=== PATIENT | female | born 1950 | race Caucasian/White ===

== ENCOUNTER → 2020-06-24 12:05 | Outpatient (CLI) | payer SELFPAY ==
[2020-06-24 15:43] LABS: Coronavirus 19 IgG Antibody Negative (Negative); Coronavirus 19 IgM Antibody Negative (Negative)
== END ==
DX: Z03.818 Encounter for observation for suspected exposure to other biological agents ruled out (principal)
CPT/HCPCS: 36415; 86328

== ENCOUNTER → 2022-06-28 15:18 | Outpatient (CLI) | payer MEDICARE, SELFPAY ==
--- NOTE | 2022-06-28 15:29 | CT_ITS ---
FINAL REPORT CLINICAL HISTORY: SCREENING FOR LUNG CANCER, 72-year-old PERSONAL HX OF NICOTINE DEPENDENC, 3 CIGARETTES PER DAY X 50 YEARS FINDINGS: Low-Dose Chest CT Axial images were obtained from the lung apex to the mid abdomen by computed tomography. Low-dose protocol was utilized. CTDI vol (mGy): 2.90 DLP (mGy-cm): 104.46 There is no axillary adenopathy. There is no hilar or mediastinal adenopathy. The heart is proper size. There is no pericardial or pleural effusion. Lung window images demonstrate no suspicious infiltrate or nodule. There is a large calcified granuloma in the lingula. There is scarring at the lung apices. Limited images of the upper abdomen are unremarkable. IMPRESSION: Lung RADS category 1. Recommend 12 month follow-up low-dose chest CT. Reviewed, Interpreted and Dictated by Salazar Vallecillo MD Transcribed by Janelle Alexis Authenticated and [facility]
--- NOTE | 2022-06-28 15:33 | MM_ITS ---
PROCEDURE INFORMATION: Exam: Bilateral Screening 3D Mammography Exam date and time: 06/28/2022 3:50 PM Age: 72 years old Clinical indication: Screening examination. Her mother had breast cancer at age 50. TECHNIQUE: Imaging protocol: Bilateral Screening tomosynthesis and 2D mammography including computer-aided detection (CAD) when performed. COMPARISON: DMSB DIGITAL MAMM-SCREEN BILATERAL 05/01/2010 8:49 AM FINDINGS: MAMMOGRAPHY: Breast composition: The breasts are heterogeneously dense, which may obscure small masses. Mass: None. Architectural distortion: None. Calcifications: Possible grouping of calcifications in the left upper outer quadrant middle 3rd. Asymmetric density: None. Skin thickening: None. Axillary adenopathy: None. IMPRESSION: Patient to be recalled for left diagnostic magnification views in CC and true lateral for further evaluation of left breast calcifications. ASSESSMENT: BI-RADS Category 0: Incomplete- Need Additional Imaging Evaluation and/or Prior Mammograms for Comparison
== END ==
PROVIDERS: PCP Family Medicine; Visit Provider Family Medicine
DX: Z12.31 Encounter for screening mammogram for malignant neoplasm of breast (principal); Z87.891 Personal history of nicotine dependence; Z12.2 Encounter for screening for malignant neoplasm of respiratory organs
CPT/HCPCS: 71271; 77063; 77067

== ENCOUNTER → 2022-07-17 13:32 | Outpatient (CLI) | payer MEDICARE, SELFPAY ==
--- NOTE | 2022-07-17 14:34 | MM_ITS ---
PROCEDURE INFORMATION: Exam: MG Left Diagnostic Breast Tomosynthesis Exam date and time: 07/17/2022 2:26 PM Age: 72 years old Clinical indication: Patient recalled on the basis of a screening mammogram for further evaluation; left breast calcifications TECHNIQUE: Imaging protocol: Left Diagnostic tomosynthesis and 2D mammography including computer-aided detection (CAD) when performed. Unilateral or bilateral exam. COMPARISON: 1. MG MM DIG SCREENING MAMM BI W/CAD 06/28/2022 3:50 PM 2. MG SCREENING [place] MAMMOGRAM 12/14/2021 12:52 PM FINDINGS: MAMMOGRAPHY: Digital diagnostic magnification views of the left upper outer quadrant do not demonstrate any clustered calcifications. IMPRESSION: No mammographic evidence of malignancy. Annual bilateral mammographic screening is recommended unless otherwise clinically indicated. ASSESSMENT: BI-RADS Category 1: Negative
== END ==
PROVIDERS: PCP Family Medicine; Visit Provider Family Medicine
DX: R92.8 Other abnormal and inconclusive findings on diagnostic imaging of breast (principal)
CPT/HCPCS: 77061; 77065; G0279

== ENCOUNTER → 2023-04-29 11:06 | Outpatient (CLI) | payer MEDICARE, SELFPAY ==
[2023-04-29 12:19] LABS: Alanine Aminotransferase 18 U/L (12-78); Albumin Level 4.2 g/dl (3.5-5.0); Albumin/Globulin Ratio 1.4 (1.1-1.8); Alkaline Phosphatase 86 U/L (38-126); Anion Gap 10.2 mEq/L (5-15); Aspartate Amino Transferase 26 U/L (14-36); Bilirubin,Total 0.9 mg/dl (0.2-1.3); Blood Urea Nitrogen 19 mg/dl (7-17); Calcium 9.4 mg/dl (8.4-10.2); Carbon Dioxide 30 mmol/L (22.0-30.0); Chloride 107 mmol/L (98-107); Estimated Glomerular Filt Rate 82 ml/min (>60); GFR (African American) 99 ML/MIN (>60); Globulin 3.1 g/dL (1.3-3.2); Glucose 97 mg/dl (74-100); Potassium 4.2 mmoL/L (3.5-5.1); Sodium 143 mmol/L (136-145); Total Protein,Serum 7.3 g/dl (6.3-8.2)
== END ==
PROVIDERS: PCP Family Medicine; Visit Provider Family Medicine
DX: Z00.00 Encounter for general adult medical examination without abnormal findings (principal)
CPT/HCPCS: 36415; 80053

== ENCOUNTER → 2023-07-02 14:44 | Outpatient (CLI) | payer MEDICARE, SELFPAY ==
--- NOTE | 2023-07-02 14:50 | CT_ITS ---
FINAL REPORT TECHNIQUE: Axial images were obtained from the lung apex to the mid abdomen by computed tomography. This study was performed with techniques to keep radiation doses as low as reasonably achievable (ALARA). Individualized dose reduction techniques using automated exposure control or adjustment of mA and/or kV according to the patient's size were employed. CLINICAL HISTORY: PERSONAL HX OF NICOTINE smoker, .5 ppd x 55 years COMPARISON: 06/28/2022 FINDINGS: CHEST CT LOW DOSE CTDI vol (mGy): 2.90 DLP (mGy-cm): 106.81 There is no axillary adenopathy. There is no hilar or mediastinal adenopathy. The heart is normal in size. There is no pericardial or pleural effusion. Lung window images demonstrate no suspicious infiltrate or nodule. There is a large calcified granuloma in the lingula. Note is made of mild scarring. Limited images of the upper abdomen are unremarkable. IMPRESSION: Lung RADS category 1. Recommend 12 month follow-up low-dose chest CT. Reviewed, Interpreted and Dictated by Justin West III, MD Transcribed by Sherine Whitaker Authenticated and [facility]
== END ==
PROVIDERS: PCP Family Medicine; Visit Provider Family Medicine
DX: Z87.891 Personal history of nicotine dependence (principal); Z12.2 Encounter for screening for malignant neoplasm of respiratory organs
CPT/HCPCS: 71271

== ENCOUNTER → 2023-07-24 12:46 | Outpatient (CLI) | payer MEDICARE, SELFPAY | PROVIDERS: PCP Family Medicine; Visit Provider Family Medicine | DX: Z12.31 Encounter for screening mammogram for malignant neoplasm of breast (principal) ==

== ENCOUNTER → 2023-08-21 10:25 | Outpatient (CLI) | payer MEDICARE, SELFPAY ==
--- NOTE | 2023-08-21 10:41 | MM_ITS ---
PROCEDURE INFORMATION: Exam: MG Bilateral Screening 3D Mammography Exam date and time: 08/21/2023 10:30 AM Age: 73 years old Clinical indication: Screening examination TECHNIQUE: Imaging protocol: Bilateral Screening tomosynthesis and 2D mammography including computer-aided detection (CAD) when performed. COMPARISON: 1. MG MM DIG MAMM DX UNILAT LT CAD 07/17/2022 2:26 PM 2. MG MM DIG SCREENING MAMM BI W/CAD 06/28/2022 3:50 PM FINDINGS: MAMMOGRAPHY: Breast composition: The breasts are heterogeneously dense, which may obscure small masses. Mass: None. Architectural distortion: None. Calcifications: No suspicious calcifications. Asymmetric density: None. Skin thickening: None. Axillary adenopathy: None. IMPRESSION: No mammographic evidence of malignancy. Annual screening is recommended unless otherwise clinically indicated. ASSESSMENT: BI-RADS Category 1: Negative
== END ==
PROVIDERS: PCP Family Medicine; Visit Provider Family Medicine
DX: Z12.31 Encounter for screening mammogram for malignant neoplasm of breast (principal)
CPT/HCPCS: 77063; 77067

== ENCOUNTER 2024-02-25 11:06 | Emergency (ER) | payer MEDICARE, SELFPAY ==
[2024-02-25 11:15] VITALS: BP 120/73; PULSE 83; RESP 18; TEMP 36.6; O2SAT 97; BMI 17.7
--- NOTE | 2024-02-25 11:21 | XR_ITS ---
FINAL REPORT CLINICAL HISTORY: pain FINDINGS: Left hand Three views were obtained. There is no acute fracture or dislocation. There are moderate to severe degenerative changes, greatest involving the 2nd through 5th PIP joints. No soft tissue abnormality is identified. IMPRESSION: Degenerative changes as above. Reviewed, Interpreted and Dictated by Justin West III, MD Transcribed by Sherine Whitaker Authenticated and . [facility]
--- NOTE | 2024-02-25 11:21 | XR_ITS ---
FINAL REPORT CLINICAL HISTORY: pain FINDINGS: Left wrist Three views were obtained. There is no acute fracture or dislocation. There are moderate degenerative changes at the radial aspect of the wrist. No soft tissue abnormality is identified. IMPRESSION: Moderate degenerative changes. Reviewed, Interpreted and Dictated by Justin West III, MD Transcribed by Sherine Whitaker Authenticated and [facility]
--- NOTE | 2024-02-25 11:25 | EXP.UTC ---
Discharge Plan Disposition Patient Disposition: Home, Self-Care Condition: Good Referrals Follow up/Referrals: Rajeev Davis MD [Primary Care Provider] - See instructions Vinicio Carney DO [Staff Physician] - See instructions Activity Restrictions/Add. Instructions Additional Instructions/Restrictions: Rest the extremity, apply ice for 15 minutes as tolerated three or four times per day, Elevate the extremity as tolerated while you are resting. Take tylenol or ibuprofen (if you can take this) for pain. Follow up with Dr. Carney (orthopedics) if you continue to have symptoms. I put in a referral but you need to call his office and schedule an appointment. Follow up with your regular doctor. GO TO THE ER FOR ANY WORSENING SYMPTOMS Clinical Impressions Clinical Impression: Contusion of left wrist, Left wrist pain, Left wrist sprain Instructions Patient Instructions: DI for Wrist Sprain Discharge ED Provider: Shola Haynes [facility] General Stated complaint: injury to left wrist Time Seen by Provider: 02/25/24 11:25 History of Present Illness Provider Complaint: She states that her large cypriot sheperd dog accidentally ran into her left wrist with his head earlier today. She has had pain and swelling of the lateral area of that wrist since then. She denies any bites or scratches. Related Data Allergies Allergy/AdvReac Type Severity Reaction Status Date / Time PCN (PENICILLIN) Allergy Severe S-SWELLS-OR Uncoded 02/25/24 11:39 AL/THROAT [facility] Disclaimer: The information contained in this section may have been updated after the patient was seen, as this information can be updated by other users. Social History Smoking Status: Current every day smoker alcohol intake: never current occupational status: retired Travel in the last 8 weeks: None ROS Obtained: Yes All systems reviewed & no additional complaints except as documented Constitutional Constitutional: Denies chills and Denies fever(s) Eyes Eyes: Denies eye discharge ENT Ears, Nose, Mouth, and Throat: Denies dizziness, Denies otalgia and Denies sore throat Cardiovascular Cardiovascular: Denies chest pain Respiratory Respiratory: Denies shortness of breath, Denies chest congestion, Denies cough, Denies stridor and Denies wheezing Gastrointestinal Gastrointestingal: Denies nausea or vomiting Musculoskeletal Musculoskeletal: Reports system reviewed and no additional complaints, except as documented and Denies arthralgias Integumentary/Breasts Skin/Breast: Reports as per HPI and Reports redness Neurologic Neurologic: Denies dizziness and Denies paresthesias Allergic/Immunologic Allergic/Immunologic: Denies wheezing Physical Exam General General appearance: alert and in no apparent distress Head Head exam: atraumatic, normocephalic and normal inspection Eye Eye exam: Present normal appearance, PERRL and EOMI ENT ENT exam: Present normal exam, normal oropharynx, mucous membranes moist, TM's normal bilaterally and normal external ear exam Neck Neck exam: Present normal inspection, full ROM and trachea midline; Absent meningismus or lymphadenopathy Chest Chest inspection: Present normal inspection and symmetric chest wall rise; Absent tenderness Respiratory Respiratory exam: Present normal lung sounds bilaterally; Absent respiratory distress Cardiovascular Cardiovascular exam: Present regular rate and normal rhythm; Absent JVD Abdominal Exam Abdominal exam: Present soft and normal bowel sounds; Absent distention, tenderness or guarding Extremities Exam Extremities exam: Present normal capillary refill; Absent calf tenderness Expanded Upper Extremity Exam Right: Elbow exam: Present normal inspection and full ROM; Absent tenderness, pain w/ pronation/supination or tenderness over radial head Forearm/Wrist exam: Present full ROM, tenderness, swelling and ecchymosis; Absent abrasion, laceration, deformity, crepitus, dislocation, erythema, tenderness over anatomical snuff box or pain with axial thumb loading Hand exam: Present normal inspection and full ROM; Absent tenderness, swelling, abrasion, laceration, skin avulsion, ecchymosis, deformity, crepitus, dislocation, erythema, amputation, nail avulsion or subungual hematoma Neuromotor exam: Normal wrist extension, thumb opposition, thumb IP flexion, thumb adduction and fingers 2-5 abduction Neurosensory exam: Normal radial nerve, ulnar nerve and median nerve Vascular exam: Normal capillary refill, radial pulse, ulnar pulse and brachial pulse Back Exam Back exam: Present normal inspection; Absent tenderness Neurological Exam Neurological exam: Present alert and oriented X3 Psychiatric Psychiatric exam: Present normal affect and normal mood Skin Skin exam: Present warm, dry, intact and normal color Lymphatic Lymphatic Findings: no adenopathy Medical Decision Making Medical Records Medical records reviewed: No I reviewed the patient's medical records. Misbah Inquiry Pt receiving controlled substance: No Orders (Tests/Meds): ORDERS Category Date Time Status Wrist XR left minimum 3 views [XR wrist LT min 3V] Stat Exams 02/25/24 11:21 Ordered XR hand LT min 3V Stat Exams 02/25/24 11:21 Ordered Radiology Data #1: Image(s): Wrist Image Reviewed: Yes I reviewed the patient's radiology image and Yes I have reviewed radiologist's interpretation Preliminary Findings: Normal/NAD and No Fracture Seen Accession No. : [id number] Patient Name / ID : Leidy Roberson / [id number] Exam Date : 02/25/2024 11:22:00 ( Final ) Study Comment : Sex / Age : F / Y Creator : AGUILA WEST MD Dictator : [employer] Supervisor : [employer] Licensee : AGUILA WEST MD Approver2 : Report Date : 02/25/2024 13:42:51 My Comment : FINAL REPORT CLINICAL HISTORY: pain FINDINGS: Left wrist Three views were obtained. There is no acute fracture or dislocation. There are moderate degenerative changes at the radial aspect of the wrist. No soft tissue abnormality is identified. IMPRESSION: Moderate degenerative changes. Reviewed, Interpreted and Dictated by Aguila West III, MD Transcribed by Sherine Whitaker Authenticated and [facility]: Image(s): Hand Image Reviewed: Yes I reviewed the patient's radiology image and Yes I have reviewed radiologist's interpretation Preliminary Findings: Normal/NAD and No Fracture Seen Accession No. : [id number] Patient Name / ID : Leidy Roberson / [id number] Exam Date : 02/25/2024 11:20:42 ( Final ) Study Comment : Sex / Age : F / Y Creator : AGUILA WEST MD Dictator : [employer] Supervisor : [employer] Estate [employer] Licensee : AGUILA WEST MD Approver2 : Report Date : 02/25/2024 13:42:55 My Comment : FINAL REPORT CLINICAL HISTORY: pain FINDINGS: Left hand Three views were obtained. There is no acute fracture or dislocation. There are moderate to severe degenerative changes, greatest involving the 2nd through 5th PIP joints. No soft tissue abnormality is identified. IMPRESSION: Degenerative changes as above. Reviewed, Interpreted and Dictated by Aguila West III, MD Transcribed by Sherine Whitaker Authenticated and [facility] Procedures Risk/Benefits of Procedure(s) Were Explained: Yes Orthopedic Splinting/Casting Injury #1: Side: left Upper Extremity Injury Location: forearm, wrist and hand Upper Extremity Immobilizer: volar splint and applied by nurse/dr abreu Post Cast/Splinting Neuro Status: intact and no change Post Cast/Splinting Vasc Status: intact and no change
[2024-02-25 12:32] VITALS: BP 120/73; PULSE 83; RESP 18; TEMP 36.6; O2SAT 97
== END 2024-02-25 12:32 | disposition home or self-care (01) ==
PROVIDERS: Emergency Provider Nurse Practitioner Family; PCP Family Medicine
DX: S63.502A Unspecified sprain of left wrist, initial encounter (principal); M25.532 Pain in left wrist; S60.212A Contusion of left wrist, initial encounter; F17.210 Nicotine dependence, cigarettes, uncomplicated; W54.1XXA Struck by dog, initial encounter
CPT/HCPCS: 73110; 73130; 99204; 99212; G0463

== ENCOUNTER 2024-09-17 10:24 | Outpatient (CLI) | payer MEDICARE, SELFPAY ==
--- NOTE | 2024-09-17 10:30 | MM_ITS ---
PROCEDURE INFORMATION: Exam: MG Bilateral Screening 3D Mammography Exam date and time: 09/17/2024 10:25 AM Age: 74 years old Clinical indication: Screening examination TECHNIQUE: Imaging protocol: Bilateral Screening tomosynthesis and 2D mammography including computer-aided detection (CAD) when performed. COMPARISON: 1. MG MM DIG SCREENING MAMM BI W/CAD 08/21/2023 10:30 AM 2. MG MM DIG MAMM DX UNILAT LT CAD 07/17/2022 2:26 PM FINDINGS: MAMMOGRAPHY: Breast composition: The breasts are heterogeneously dense, which may obscure small masses. Mass: None. Architectural distortion: None. Calcifications: No suspicious calcifications. Asymmetric density: None. Skin thickening: None. Axillary adenopathy: None. IMPRESSION: No mammographic evidence of malignancy. Annual screening is recommended unless otherwise clinically indicated. ASSESSMENT: BI-RADS Category 1: Negative.
== END 2024-09-17 23:59 | disposition home or self-care (01) ==
LOC: RAD 10:25
PROVIDERS: PCP Family Medicine; Visit Provider Family Medicine
DX: Z12.31 Encounter for screening mammogram for malignant neoplasm of breast (principal)
CPT/HCPCS: 77063; 77067

== ENCOUNTER 2024-11-03 04:10 | Emergency (ER) | payer MEDICARE, SELFPAY ==
[2024-11-03 04:16] VITALS: BP 134/79; PULSE 90; O2SAT 97
[2024-11-03 04:23] VITALS: BP 134/79; PULSE 89; RESP 18; TEMP 36.7; O2SAT 97; BMI 18.5
[2024-11-03 04:31] VITALS: BP 114/72; PULSE 74; O2SAT 98
[2024-11-03 04:37] VITALS: BP 114/72; PULSE 70; PULSE 73; RESP 16; TEMP 36.7; O2SAT 97; O2SAT 99
[2024-11-03 04:39] LABS: Albumin Level 4.6 g/dl (3.5-5.0); Chloride 106 mmol/L (98-107); Sodium 139 mmol/L (136-145)
[2024-11-03 04:40] LABS: Potassium 3.7 mmoL/L (3.5-5.1)
[2024-11-03 04:42] LABS: Alanine Aminotransferase 25 U/L (12-78); Albumin/Globulin Ratio 1.6 (1.1-1.8); Alkaline Phosphatase 95 U/L (38-126); Anion Gap 11.7 mEq/L (5-15); Aspartate Amino Transferase 36 U/L (14-36); Bilirubin,Total 1.6 mg/dl (0.2-1.3); Blood Urea Nitrogen 20 mg/dl (7-17); Carbon Dioxide 25 mmol/L (22.0-30.0); Creatinine Clearance Estimated 37 mL/min (50-200); Estimated Glomerular Filt Rate 70 ml/min (>60); GFR (African American) 84 ML/MIN (>60); Globulin 2.9 g/dL (1.3-3.2); Total Protein,Serum 7.5 g/dl (6.3-8.2)
[2024-11-03 04:43] LABS: Calcium 9.2 mg/dl (8.4-10.2); Glucose 114 mg/dl (74-100); Magnesium 1.8 mg/dl (1.6-2.3)
[2024-11-03 04:49] LABS: Basophils # 0.1 K/mm3 (0-0.2); Basophils % 0.7 % (0.1-2.0); Eosinophils # 0.2 K/mm3 (0.0-0.4); Eosinophils % 1.4 % (0.1-12.0); Hematocrit 40.6 % (37.0-47.0); Hemoglobin 13.3 g/dL (12.2-16.2); Lymphocytes # 3.2 K/mm3 (0.7-4.5); Mean Corpuscular HGB Conc 32.8 g/dL (31.8-35.4); Mean Corpuscular Hemoglobin 30.2 pg (27.0-31.2); Mean Corpuscular Volume 92.3 fl (81-99); Mean Platelet Volume 10.6 fl (7.4-10.4); Monocytes # 0.7 K/mm3 (0.1-1.0); Monocytes % 6.2 % (1.7-9.3); Neutrophils # 7.7 K/mm3 (1.8-7.8); Neutrophils % 64.4 % (37.0-80.0); Platelet Count 282 K/mm3 (142-424); Red Cell Distribution Width 13.8 % (11.5-17.5)
[2024-11-03 05:00] VITALS: BP 116/72; PULSE 74; O2SAT 98
--- NOTE | 2024-11-03 05:16 | ED_ITS ---
Discharge Plan Disposition Patient Disposition: Home, Self-Care Prescriptions Prescriptions: No Action Maximum D3 325 mcg (13,000 unit) capsule 13,000 unit PO DIRECTED Patient Comments: TAKE 1 CAPSULE BY MOUTH ONCE DAILY ON SATURDAY, SATURDAY AND SATURDAY Referrals Follow up/Referrals: Rajeev Davis MD [Primary Care Provider] - See instructions Activity Restrictions/Add. Instructions Additional Instructions/Restrictions: Please follow-up with your primary care provider. Please return to the emergency department if you develop any new or worsening symptoms or become concerned for your health. Clinical Impressions Clinical Impression: Encounter for medical assessment, [facility] Print Language Print Language: Estonian Discharge ED Provider: Tai Fried General Adult HPI General Chief complaint: Recheck/Abnormal Lab/Rx Stated complaint: allergic reaction, trouble breathing Time Seen by Provider: 11/03/24 04:15 Mode of Arrival: Ambulatory Source of Information: Patient Limitations: No Limitations Description of Symptoms (Recalled from ER Triage Doc. by RN): aniya History of Present Illness HPI narrative: 74-year-old female with no reported past medical history presents after waking up feeling shaky. She denies any chest pain abdominal pain shortness of breath. She reports that she had been eating and drinking normally the day before. Reports that nothing of this has happened before. No seizure-like activity. She just feels a little off and shaky. Related Data Home Medications ?Medication ?Instructions ?Recorded ?Confirmed cholecalciferol (vitamin D3) 325 13,000 unit PO DIRECTED 11/03/24 11/03/24 mcg (13,000 unit) capsule (Maximum D3) Allergies Allergy/AdvReac Type Severity Reaction Status Date / Time Penicillins Allergy Swelling Verified 04/07/24 11:46 of Lip/Tongue/Throat [facility] Disclaimer: The information contained in this section may have been updated after the patient was seen, as this information can be updated by other users. Social History Smoking Status: Current every day smoker alcohol intake: never current occupational status: retired Travel in the last 8 weeks: None ROS Obtained: Yes All systems reviewed & no additional complaints except as documented Physical Exam General General appearance: alert and in no apparent distress Head Head exam: atraumatic and normocephalic Eye Eye exam: Present normal appearance, PERRL and EOMI ENT ENT exam: Present normal oropharynx and normal external ear exam Neck Neck exam: Present normal inspection and full ROM Chest Chest inspection: Present normal inspection and symmetric chest wall rise; Absent tenderness Respiratory Respiratory exam: Present normal lung sounds bilaterally; Absent respiratory distress Cardiovascular Cardiovascular exam: Present regular rate and normal rhythm Abdominal Exam Abdominal exam: Present soft; Absent distention, tenderness or guarding Extremities Exam Extremities exam: Present normal inspection; Absent edema or joint swelling Back Exam Back exam: Present normal inspection; Absent tenderness Neurological Exam Neurological exam: Present alert and oriented X3; Absent motor sensory deficit Psychiatric Psychiatric exam: Present normal affect and normal mood Skin Skin exam: Present warm, dry and normal color Lymphatic Lymphatic Findings: no adenopathy Medical Decision Making Medical Records Medical records reviewed: Yes I reviewed the patient's medical records. Screening: Per USPSTF and CDC recommendations, given the prevalence of disease in our region, it is our hospital?s policy to screen for HIV and viral Hepatitis for all patients aged 18 and over and those with ongoing risk factors. Misbah Inquiry Pt receiving controlled substance: No Misbah was queried for this patient: No Vital Signs: 11/03/24 04:16 11/03/24 04:23 11/03/24 04:31 Temperature 98.0 F Temperature Source Oral Pulse Rate 90 74 Pulse Rate [Right Radial] 89 Respiratory Rate 18 Blood Pressure 134/79 114/72 Blood Pressure [Right Arm] 134/79 Blood Pressure Mean [Right Arm] 97 Blood Pressure Source [Right Arm] Blood Pressure Position Blood Pressure Position [Right Arm] Sitting 02 Sat by Pulse Oximetry 97 97 98 Oxygen Delivery Method Room Air Room Air Room Air 11/03/24 04:37 11/03/24 04:37 11/03/24 05:00 Temperature 98.0 F 98.0 F Temperature Source Oral Oral Pulse Rate 73 74 Pulse Rate [Right Radial] 70 Respiratory Rate 16 16 Blood Pressure 114/72 116/72 Blood Pressure [Right Arm] 114/72 Blood Pressure Mean [Right Arm] 86 Blood Pressure Source [Right Arm] Automatic Cuff Blood Pressure Position Supine Blood Pressure Position [Right Arm] Sitting 02 Sat by Pulse Oximetry 99 97 98 Oxygen Delivery Method Room Air Room Air Room Air 11/03/24 05:19 Temperature 98.1 F Temperature Source Pulse Rate 72 Pulse Rate [Right Radial] Respiratory Rate 20 Blood Pressure 116/72 Blood Pressure [Right Arm] Blood Pressure Mean [Right Arm] Blood Pressure Source [Right Arm] Blood Pressure Position Blood Pressure Position [Right Arm] 02 Sat by Pulse Oximetry Oxygen Delivery Method Room Air Lab Data Lab results reviewed: Yes I reviewed the patient's lab results. Lab Results 11/03/24 04:28: WBC 12.0 H, RBC 4.40, Hgb 13.3, Hct 40.6, MCV 92.3, MCH 30.2, MCHC 32.8, RDW 13.8, Plt Count 282, MPV 10.6 H, Neut % (Auto) 64.4, Lymph % (Auto) 27.0, [place] % (Auto) 6.2, Eos % (Auto) 1.4, Baso % (Auto) 0.7, Neut # (Auto) 7.7, Lymph # (Auto) 3.2, [place] # (Auto) 0.7, Eos # (Auto) 0.2, Baso # (Auto) 0.1, Sodium 139, Potassium 3.7, Chloride 106, Carbon Dioxide 25, Anion Gap 11.7, BUN 20 H, Creatinine 0.80, Estimated Creat Clear 37, Estimated GFR 70, Est GFR ( Amer) 84, Glucose 114 H, Calcium 9.2, Magnesium 1.8, Total Bilirubin 1.6 H, AST 36, ALT 25, Alkaline Phosphatase 95, Total Protein 7.5, Albumin 4.6, Globulin 2.9, Albumin/Globulin Ratio 1.6, HCV Ab STEPHEN w/Rflx PCR Qn Negative, HIV Ag/Ab Combo Qual Negative 11/03/24 04:28 11/03/24 04:28 Orders (Tests/Meds): ORDERS Category Date Time Status CBC w/Auto Diff [Complete Blood Count Auto Diff] Stat Lab 11/03/24 04:28 Completed CMP [Comprehensive Metabolic Panel] Stat Lab 11/03/24 04:28 Completed HIV Combo Routine Lab 11/03/24 04:28 Completed Hepatitis C Ab Qual. W/ RFX Routine Lab 11/03/24 04:28 Completed MAG [Magnesium] Stat Lab 11/03/24 04:28 Completed Medical Decision Narrative: 74-year-old female with no reported past medical history presents shortly after waking up feeling shaky. History was obtained via interactive discussion with patient, family. On arrival, patient is [afebrile, hemodynamically stable, satting appropriately, alert, oriented x4, GCS 15], moving all extremities spontaneously. Full physical exam performed and significant for no significant physical exam abnormalities. Time the patient arrived she was no longer shaky. Differential includes but is not limited to hypoglycemia, electrolyte derangement, anxiety. Workup initiated including fingerstick blood glucose which was normal. Basic labs obtained which on my independent interpretation show minimal leukocytosis and no significant renal dysfunction. The underlying etiology of patient's brief period of shakiness is unclear, but no evidence of emergent pathology at this time. Patient was discharged in stable condition with return precautions. Procedures Risk/Benefits of Procedure(s) Were Explained: Yes Critical Care Critical Care Time Critical Care Time: No
[2024-11-03 05:19] VITALS: BP 116/72; PULSE 72; RESP 20; TEMP 36.7; O2SAT 98
[2024-11-03 07:12] LABS: HIV Combo NEGATIVE (Negative)
[2024-11-03 07:20] LABS: Hepatitis C Ab Qual. W/ RFX NEGATIVE (Negative)
== END 2024-11-03 05:25 | disposition home or self-care (01) ==
PROVIDERS: Emergency Provider Emergency Medicine; PCP Family Medicine
DX: Z00.8 Encounter for other general examination (principal); R25.1 Tremor, unspecified; Z72.0 Tobacco use
CPT/HCPCS: 80053; 83735; 85025; 86803; 87389; 99283

== ENCOUNTER 2025-02-15 12:37 | Outpatient (CLI) | payer MEDICARE, SELFPAY ==
[2025-02-15 12:44] LABS: Anti-Centromere B Antibodies ND; Anti-DNA (DS) Ab Qn ND; Anti-Jo-1 ND; Antichromatin Antibodies ND; Antiscleroderma-70 Antibodies ND; RNP Antibodies ND; Sjogren's Anti-SS-A ND; Sjogren's Anti-SS-B ND
--- NOTE | 2025-02-15 12:54 | XR_ITS ---
FINAL REPORT CLINICAL HISTORY: smoker, weightloss COMPARISON: None FINDINGS: PA and lateral views of the chest are obtained. There is no prior exam for comparison. The cardiac and mediastinal silhouettes are within normal limits. Changes of emphysema are present. There is evidence of prior granulomatous disease. No acute pulmonary abnormality is identified. There is no pleural effusion, pneumothorax, or acute osseous abnormality. IMPRESSION: Changes of emphysema and prior granulomatous disease without acute pulmonary abnormality. Reviewed, Interpreted and Dictated by Sylvia Godfrey MD Transcribed by Ana Zamora Authenticated and [facility]
[2025-02-15 14:28] LABS: Erythrocyte Sedimentation Rate 12 mm/hr (0-30)
[2025-02-15 14:57] LABS: Vitamin B12 466 pg/mL (239-931)
[2025-02-16 16:12] LABS: Antinuclear Antibodies (ANA) Negative (Negative)
== END 2025-02-15 23:59 | disposition home or self-care (01) ==
PROVIDERS: PCP Family Medicine; Visit Provider Specialist
DX: E44.1 Mild protein-calorie malnutrition (principal); F17.200 Nicotine dependence, unspecified, uncomplicated; G93.40 Encephalopathy, unspecified; R63.4 Abnormal weight loss; Z68.1 Body mass index [BMI] 19.9 or less, adult; J43.9 Emphysema, unspecified; D71 Functional disorders of polymorphonuclear neutrophils
CPT/HCPCS: 36415; 71046; 82607; 85651

== ENCOUNTER 2025-02-18 16:46 | Emergency (ER) | payer MEDICARE, SELFPAY ==
[2025-02-18 16:48] VITALS: BP 157/76; PULSE 82; RESP 18; TEMP 36.6; O2SAT 94; BMI 18.5
--- NOTE | 2025-02-18 16:56 | HMH.EDGENADL ---
Discharge Plan Disposition Patient Disposition: Home, Self-Care Referrals Follow up/Referrals: Rajeev Davis MD [Primary Care Provider, Medical] - See instructions Activity Restrictions/Add. Instructions Additional Instructions/Restrictions: Of the workup that is done thus farTonight we were about residential through your workup when you are requesting to go home. As discussed there is no way for us to know exactly what is going on without a complete workup however I am glad that your pain is gone and you are wanting to go home and if things get worse and you change her mind please come back at any time. There is blood in your urine as discussed that will need to be followed up on. Clinical Impressions Clinical Impression: Acute flank pain, Hip pain, right, Hematuria Instructions Patient Instructions: DI for Acute Abdominal Pain Print Language Print Language: Ukrainian Discharge ED Provider: Ned Pandya General Adult HPI <KATTY Bose - Last Filed: 02/18/25 19:02> General Chief complaint: Abdominal Pain Stated complaint: Vomiting,stomach pain Time Seen by Provider: 02/18/25 16:57 Mode of Arrival: Wheelchair Source of Information: Patient Description of Symptoms (Recalled from ER Triage Doc. by RN): PT presents for evaluation of right side lower abd pain along with N/V that started today suddenly. Denies knowledge of appendix removed. Rates pain 05/26. Pt brought in by wheelchair with . History of Present Illness HPI narrative: Patient presents for evaluation of right lower quadrant abdominal pain. Patient had acute onset of right lower quadrant abdominal pain along with nausea vomiting that began suddenly earlier today. She still has her appendix and her reproductive organs according to her . Last bowel movement was this morning and it was reportedly normal. She denies any fever chills hemoptysis hematochezia melena hematemesis hematuria dysuria. Related Data Allergies Allergy/AdvReac Type Severity Reaction Status Date / Time Penicillins Allergy Swelling Verified 02/15/25 10:06 of Lip/Tongue/Throat PFSH <KATTY Bose - Last Filed: 02/18/25 19:02> [facility] Disclaimer: The information contained in this section may have been updated after the patient was seen, as this information can be updated by other users. Family History (Updated 02/15/25 @ 10:06 by MARCIAL Juan) Other Cancer Social History Smoking Status: Current every day smoker alcohol intake: never current occupational status: retired Travel in the last 8 weeks?: None Have you lived/traveled outside [place] in past 30 days?: No Contact w/someone who lives/traveled outside US past 30 days?: No Exposure to someone with infectious disease in past 14 days?: No Do you have a fever (greater than 100.4 F or 38 C)?: No Have you tested positive for COVID-19?: No Exposed to someone with COVID-19 in past 14 days?: No Do you have a sore throat?: No Do you have a cough?: No Do you have any weakness?: No Do you have any diarrhea?: No Are you experiencing any unusual bleeding?: No Do you have any muscle aches/pain?: No Do you have any abdominal pain?: Yes Are you experiencing loss of taste or smell?: No Other Medical History Have you received the Pneumonia Vaccine: Yes <KATTY Bose - Last Filed: 02/18/25 19:02> ROS Obtained: Yes Systems reviewed as appropriate & no additional complaints except as documented Physical Exam <KATTY Bose - Last Filed: 02/18/25 19:02> General General appearance: alert and in no apparent distress Respiratory Respiratory exam: Present normal lung sounds bilaterally Cardiovascular Cardiovascular exam: Present regular rate Neurological Exam Neurological exam: Present alert and oriented X3 Medical Decision Making <KATTY Bose - Last Filed: 02/18/25 19:02> Medical Records Medical records reviewed: Yes I reviewed the patient's medical records. Screening: Per USPSTF and CDC recommendations, given the prevalence of disease in our region, it is our hospital?s policy to screen for HIV and viral Hepatitis for all patients aged 18 and over and those with ongoing risk factors. Misbah Inquiry Pt receiving controlled substance: No Vital Signs: 02/18/25 16:48 Temperature 97.8 F Temperature Source Oral Pulse Rate [Right] 82 Respiratory Rate 18 Blood Pressure [Right Arm] 157/76 H Blood Pressure Mean [Right Arm] 103 02 Sat by Pulse Oximetry 94 L Oxygen Delivery Method Room Air Lab Data Lab results reviewed: Yes I reviewed the patient's lab results. Lab Results 02/18/25 17:45: Urine Color Yellow, Urine Appearance Clear, Urine pH 6.0, Ur Specific [place] 1.022, Urine Protein Negative, Urine Glucose (UA) Negative, Urine Ketones Negative, Urine Blood Trace-i, Urine Nitrate Negative, Urine Bilirubin Negative, Urine Urobilinogen 0.2, Ur Leukocyte Esterase Negative, Urine RBC 20-50, Urine WBC 3-5, Ur Squamous Epith Cells 3-5, Urine Bacteria 2+, Urine Mucus 4+ 02/18/25 18:14: Sodium 136, Potassium 4.0, Chloride 111 H, Carbon Dioxide 22, Anion Gap 7.0, BUN 22 H, Creatinine 0.90, Estimated Creat Clear 37, Estimated GFR 61, Est GFR ( Amer) 74, Glucose 117 H, Calcium 8.8, Magnesium 1.8, Total Bilirubin 1.2, AST 26, ALT 17, Alkaline Phosphatase 78, C-Reactive Protein < 0.3, Total Protein 6.2 L, Albumin 3.8, Globulin 2.4, Albumin/Globulin Ratio 1.6, Procalcitonin 0.063 02/18/25 18:39: WBC 11.6 H, RBC 3.93 L, Hgb 12.2, Hct 37.6, MCV 95.7, MCH 31.0, MCHC 32.4, RDW 13.2, Plt Count 228, MPV 10.6 H, Neut % (Auto) 87.1 H, Lymph % (Auto) 7.9 L, [place] % (Auto) 4.1, Eos % (Auto) 0.1, Baso % (Auto) 0.5, Neut # (Auto) 10.1 H, Lymph # (Auto) 0.9, [place] # (Auto) 0.5, Eos # (Auto) 0.0, Baso # (Auto) 0.1 02/18/25 18:39 02/18/25 18:14 Orders (Tests/Meds): ED MEDICATIONS Discontinued Medications Generic Name Dose Route Start Last Admin Trade Name Freq PRN Reason Stop Dose Admin Acetaminophen 1,000 mg 02/18/25 17:08 02/18/25 17:46 Acetaminophen 1,000mg/100ml Vial IV 02/18/25 17:09 1,000 mg ONCE ONE Administration Sodium Chloride 1,000 mls @ 999 mls/hr 02/18/25 17:08 02/18/25 17:47 Sod Chlor 0.9% 1000ml Bag IV 02/18/25 18:08 999 mls/hr .Q1H1M ONE Administration Ketorolac Tromethamine 15 mg 02/18/25 17:08 02/18/25 17:46 Ketorolac 30mg/Ml Vial IV 02/18/25 17:09 15 mg ONCE ONE Administration Ondansetron HCl 4 mg 02/18/25 17:08 02/18/25 17:46 Ondansetron 4mg/2ml Vial IV 02/18/25 17:09 4 mg ONCE ONE Administration ORDERS Category Date Time Status CBC w/Auto Diff [Complete Blood Count Auto Diff] Stat Lab 02/18/25 18:39 Completed CMP [Comprehensive Metabolic Panel] Stat Lab 02/18/25 18:14 Completed CRP [C-Reactive Protein] Stat Lab 02/18/25 18:14 Completed ESR [Erythrocyte Sedimentation Rate] Stat Lab 02/18/25 17:09 Ordered Magnesium Stat Lab 02/18/25 18:14 Completed Procalcitonin Stat Lab 02/18/25 18:14 Completed Urinalysis and Microscopic Stat Lab 02/18/25 17:45 Completed Urine Culture Stat Micro 02/18/25 17:45 Received Medical Decision Narrative: In summary patient is a 74-year-old female who presents to the emergency department for evaluation of right lower quadrant abdominal pain and nausea vomiting. Patient is hemodynamically stable with a blood pressure 157/76 pulse 82 with normal sinus rhythm the bedside monitor breathing 18 times minute satting at 94% room air upon arrival, afebrile at 97.8. Discal exam is remarkable for tenderness to palpation of the right lower quadrant focally and mildly diffusely. There is no rebound or guarding no rigidity. Bowel sounds normal active.. Differential diagnosis includes acute appendicitis versus colitis versus constipation versus urinary tract infection versus kidney stone etc. Initial workup will be conducted with hematologic labs urinalysis CT scan abdomen pelvis. Initial interventions include crystalloid bolus Tylenol Toradol Zofran. <Ned Pandya MD - Last Filed: 02/18/25 19:04> Vital Signs: 02/18/25 16:48 Temperature 97.8 F Temperature Source Oral Pulse Rate [Right] 82 Respiratory Rate 18 Blood Pressure [Right Arm] 157/76 H Blood Pressure Mean [Right Arm] 103 02 Sat by Pulse Oximetry 94 L Oxygen Delivery Method Room Air Lab Data Lab Results 02/18/25 17:45: Urine Color Yellow, Urine Appearance Clear, Urine pH 6.0, Ur Specific [place] 1.022, Urine Protein Negative, Urine Glucose (UA) Negative, Urine Ketones Negative, Urine Blood Trace-i, Urine Nitrate Negative, Urine Bilirubin Negative, Urine Urobilinogen 0.2, Ur Leukocyte Esterase Negative, Urine RBC 20-50, Urine WBC 3-5, Ur Squamous Epith Cells 3-5, Urine Bacteria 2+, Urine Mucus 4+ 02/18/25 18:14: Sodium 136, Potassium 4.0, Chloride 111 H, Carbon Dioxide 22, Anion Gap 7.0, BUN 22 H, Creatinine 0.90, Estimated Creat Clear 37, Estimated GFR 61, Est GFR ( Amer) 74, Glucose 117 H, Calcium 8.8, Magnesium 1.8, Total Bilirubin 1.2, AST 26, ALT 17, Alkaline Phosphatase 78, C-Reactive Protein < 0.3, Total Protein 6.2 L, Albumin 3.8, Globulin 2.4, Albumin/Globulin Ratio 1.6, Procalcitonin 0.063 02/18/25 18:39: WBC 11.6 H, RBC 3.93 L, Hgb 12.2, Hct 37.6, MCV 95.7, MCH 31.0, MCHC 32.4, RDW 13.2, Plt Count 228, MPV 10.6 H, Neut % (Auto) 87.1 H, Lymph % (Auto) 7.9 L, [place] % (Auto) 4.1, Eos % (Auto) 0.1, Baso % (Auto) 0.5, Neut # (Auto) 10.1 H, Lymph # (Auto) 0.9, [place] # (Auto) 0.5, Eos # (Auto) 0.0, Baso # (Auto) 0.1 Orders (Tests/Meds): ED MEDICATIONS Discontinued Medications Generic Name Dose Route Start Last Admin Trade Name Freq PRN Reason Stop Dose Admin Acetaminophen 1,000 mg 02/18/25 17:08 02/18/25 17:46 Acetaminophen 1,000mg/100ml Vial IV 02/18/25 17:09 1,000 mg ONCE ONE Administration Sodium Chloride 1,000 mls @ 999 mls/hr 02/18/25 17:08 02/18/25 17:47 Sod Chlor 0.9% 1000ml Bag IV 02/18/25 18:08 999 mls/hr .Q1H1M ONE Administration Ketorolac Tromethamine 15 mg 02/18/25 17:08 02/18/25 17:46 Ketorolac 30mg/Ml Vial IV 02/18/25 17:09 15 mg ONCE ONE Administration Ondansetron HCl 4 mg 02/18/25 17:08 02/18/25 17:46 Ondansetron 4mg/2ml Vial IV 02/18/25 17:09 4 mg ONCE ONE Administration ORDERS Category Date Time Status CBC w/Auto Diff [Complete Blood Count Auto Diff] Stat Lab 02/18/25 18:39 Completed CMP [Comprehensive Metabolic Panel] Stat Lab 02/18/25 18:14 Completed CRP [C-Reactive Protein] Stat Lab 02/18/25 18:14 Completed ESR [Erythrocyte Sedimentation Rate] Stat Lab 02/18/25 17:09 Ordered Magnesium Stat Lab 02/18/25 18:14 Completed Procalcitonin Stat Lab 02/18/25 18:14 Completed Urinalysis and Microscopic Stat Lab 02/18/25 17:45 Completed Urine Culture Stat Micro 02/18/25 17:45 Received Medical Decision Narrative: In summary patient is a 74-year-old female who presents to the emergency department for evaluation of right lower quadrant abdominal pain and nausea vomiting. Patient is hemodynamically stable with a blood pressure 157/76 pulse 82 with normal sinus rhythm the bedside monitor breathing 18 times minute satting at 94% room air upon arrival, afebrile at 97.8. Discal exam is remarkable for tenderness to palpation of the right lower quadrant focally and mildly diffusely. There is no rebound or guarding no rigidity. Bowel sounds normal active.. Differential diagnosis includes acute appendicitis versus colitis versus constipation versus urinary tract infection versus kidney stone etc. Initial workup will be conducted with hematologic labs urinalysis CT scan abdomen pelvis. Initial interventions include crystalloid bolus Tylenol Toradol Zofran. I was consulted by the MANUEL, and we discussed the complexity of the problems being addressed. I approved the treatment and management plan for this patient's care in the emergency department, thus performing a substantive portion of the medical decision making. After initial workup was pending patient had resolution of her pain in her right hip right flank area and was wishing to go home. I discussed with patient and spouse at length that there is no way for me to know exactly what is going on however she has been hemodynamically stable here and I am glad that she has resolution of pain but there is no way for me to know if something severe is happening or not. Patient has capacity per [place] U-ARE criteria and will sign out against medical vice although it is my recommendation they were given return precautions to come anytime. They are specifically instructed that their hematologic labs are okay at this point and they do have blood in her urine which will likely need to be followed up on. Patient has bacteriuria urine nitrate negative and is not have symptomatic dysuria antibiotics will be deferred at this time. Ned Pandya MD Critical Care <KATTY Bose - Last Filed: 02/18/25 19:02> Critical Care Time Critical Care Time: No
--- OUTSIDE RECORDS SUMMARY | 2025-02-18 17:01 | XMS_ITS | Continuity of Care Document ---
Author Organization [facility], [facility] Address [address] [facility] [address] [place] [address] Care Team Providers Care Courtroom Reporter Name Role Phone JACQUIE SHELTON Primary Care Provider [phone] Assessment No assessment recorded. Plan of Treatment Reminders Order Date Submit Date Provider Last Modified By Organization Details Last Modified Time Details Appointments CARDIO ULTRASOUN D 2024 11:15A M CARDIO_UL TRASOUND Not available Not available Not available RECHECK 2024 10:15A M MARY JO ROSS MD Not available Not available Not available Lab glycohemo globin, total, blood 2024 025 [facility], [address] [place] [address], [phone], 01/26/2025 15:46:52 lipid panel, serum 2024 025 [facility], [address] [place] [address], [phone], 01/26/2025 16:35:12 Referral None recorded. Procedures None recorded. Surgeries None recorded. Imaging US, doppler echocardi ogram, w/ color flow 2024 025 [email or web address] [facility], [address] [place] [address] , [place], [address], 02/03/2025 11:47:28 Medication Orders None recorded. Patient TargetsNo targets recorded. Patient Instructions Encounter Date Encounter Id Patient Instructions Last Modified By Organization Details Last Modified Time 01/26/2025 [id number] Heart Station Patient Instructions coldendick Not available 01/26/2025 11:11:11 Reason for Referral None Reported. Results Created Date Observation Date Name Description Value Unit Range Abnormal Flag Note LastModifiedBy Organization Detail LastModifiedTime 01/28/20 25 01/26/2025 anni carlson am No observ ation record ed. BARCODE Not Available 2024 08:22:09 Result Notes None recorded. 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 Active 2015 From [employer] Load;Pro vider: Sonam Saucedo; Status: Active Not Available [facility] 6 09:51:48 Pain of hip region 18661970 Completed 201510/06/2021 From Automate d Load;Pro vider: Sonam Saucedo; Status: Active LEN LEE MD [address] [place] [address], [address] , [facility] 2 09:55:04 Senile hyperker atosis 516447715 Completed 201401/03/2017 From Autom[employer] d Load;Pro vider: Rashmi Flor ;Status: Active NILDA MUNOZ MD [address] [place] [address], [address] , [facility] 7 12:31:06 Scarring alopecia 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 Active 2014 From Autom[employer] Load;Pro vider: Rashmi Flor ;Status: Active Not Available [facility] 6 09:51:48 Hemangio ma 508265792 Active 2014 From Automate d Load;Pro vider: Rashmi Flor ;Status: Active Not Available [facility] 6 09:51:48 Familial combined hyperlip idemia 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 Completed 201401/03/2017 From Automate d Load;Pro vider: Nilda Munoz;Sta tus: Active NILDA MUNOZ MD [address] [place] [address], [address] , [facility] 7 12:31:03 Lack of energy 047352743 Completed 201410/06/2021 From Automate d Load;Pro vider: Nilda Munoz;Sta tus: Active LEN LEE MD [address] [place] [address], [address] , [facility] 2 09:55:07 Hyperlip idemia 59874810 Active 2016 NILDA MUNOZ MD [address] [place] [address], [address] , [facility] 7 12:31:01 Fatigue 00648993 Active 2016 NILDA MUNOZ MD [address] [place] [address], [address] , [facility] 7 12:31:11 Epidermo id cyst of skin 943826638 Active 2015 From Automate d Load;Pro vider: Rashmi Flor ;Status: Active Not Available [facility] 7 06:14:48 Lentigo Active 2015 From Automate d Load;Pro vider: Rashmi Flor ;Status: Active Not Available [facility] 7 07:37:58 History of polyp of colon 964265312 Active 2021 LEN LEE MD [address] [place] [address], [phone] , [facility] 2 09:57:01 Notes:: Depression Screening* Date:07/02/2016 Problem Notes None recorded. Procedures Surgical History Date Name Laterality Status Provider Name and Address Organization Details Recorded Time 01/27/20 25 EKG completed RONIT TIDWELL PA-C [address] [place] [address], [address], [facility] 01/26/2025 16:32:51 11/25/19 24 Destruction BN Lesions completed RASHMI FLOR DO [address] [place], [address], [facility] 11/25/2023 12:31:16 10/06/[address] Lung Screening Counseling completed LEN LEE MD [address] [place], [address], [facility] 10/06/2021 10:46:20 10/05/19 21 Destruction Premalignant Lesion(s) completed [facility] 10/05/2020 10:04:52 10/05/19 21 Destruction BN Lesions completed [facility] 10/05/2020 10:03:54 04/18/20 20 laser assisted in situ keratomileusis of bilateral eyes completed Lexie Knott [facility] 01/26/2025 10:25:44 06/16/20 19 Biopsy Skin Lesion; Tangential completed [facility] 06/16/2019 12:00:08 07/05/20 17 Most Recent Mammogram completed [facility] 12/31/2017 10:45:44 08/14/20 16 Most Recent Bone Density completed [facility] 12/31/2017 10:45:35 07/18/20 16 Date of Last Colonoscopy completed [facility] 12/31/2017 10:45:07 Eye Surgery completed [facility] 01/03/2017 12:03:38 Tonsillectomy completed [facility] 12/25/2018 10:36:31 dental surgical procedure completed Anila Claire [facility] 05/18/2022 10:22:10 Imaging Results None recorded. Procedure Notes None recorded. Medical Equipment None Reported. Allergies Allergen ID Allergen Name Allergen Category Reaction Reaction Severity Criticality Documentation Date Start Date Code Code System Note Provider Name and Address Organization Details Recorded Time 047105 Product containin g penicilli n (product) medicatio n anaphylax is Not available Not available 08/10/20162010 72869 0234 SNOMED React ion: ANAPH YLAXI S; Comme nt: Creat ed By: Huy Xiong ;Hardeep norton Date: 2010 1:52: 19 PM; Not Available [facility] 6 08:19:47 875615 ergocalci ferol medicatio n confusion moderate Not available 01/26/20252024 4018 [facility] 10:21:15 Medications Name Sig Start Date Stop Date Status Note LastModified by Organization Details LastModified Time doxycycli ne hyclate 100 mg capsule take two capsules once - single dose 01/26 completed Not Available Not Available Not Available Multiple Vitamin capsule Daily active Duration : 30 days;Chaitanya quency: daily;Me dication Descript ion: multivit calero; Dosage:1 ; Route:or al; refills: 3; Quantity :100 capsule Not Available Not Available Not Available Zofran 4 mg tablet Take 1 tablet 3 times a day by oral route as needed. 01/03 completed Not Available Not Available Not Available aspirin 81 mg tablet Daily 05/18 completed Frequenc y: daily;Me dication Descript ion: aspirin; Dosage:1 ; Route:or al; refills: 0 Not Available Not Available Not Available Vitamin C Daily active Frequenc y: daily;Me dication Descript ion: ascorbic acid; Dosage:1 ; refills: 0; Quantity :otc Not Available Not Available Not Available Golytely 236 gram-22.7 4 gram-6.74 gram-5.86 gram oral solution DIRECTED 07/22 completed Not Available Not Available Not Available Voltaren 1 % topical gel 04/03 completed PA approved through 09/15/19 Not Available Not Available Not Available Vitals Date Recorded Body height Body mass index (BMI) Body weight Oxygen saturation Oxygen saturation in Arterial blood by Pulse oximetry Heart rate Systolic blood pressure Diastolic blood pressure Provider Name and Address Organization Details Last Updated DateTime 5 162.56 cm 18.6 kg/m2 17650.1 3 g 96 % 96 % 90 /min 106 mm[Hg] 58 mm[Hg] [facility] 5 10:28:50 Social History Question Answer Notes LastModified by Organizat ion Details LastModified Time Tobacco Smoking Status Current Some Day Smoker Estrellita Mcdaniel [facility] 01/03/2017 11:56:33 Do You Have An Advance Directive? Yes Information not available 12/31/2017 What Is Your Level Of Caffeine Consumption? None Information not available 01/03/2017 How Much Tobacco Do You Chew? None Information not available 01/03/2017 What Type Of Diet Are You Following? REGULAR Information not available 01/03/2017 Which Illicit Or Recreational Drugs Have You Used? None Information not available 01/03/2017 Education 2 Year College Total Of 3 Years Completed Information not available 01/03/2017 Hard Of Hearing Or Deaf In One Or Both Ears? No Information not available 01/03/2017 Legally Blind In One Or Both Eyes? No Information not available 01/03/2017 Live Alone Or With Others? With Others Information not available 01/03/2017 What Was The Date Of Your Most Recent Tobacco Screening? 01/26/2025 Information not available 01/26/2025 How Many Children Do You Have? 0 Information not available 01/03/2017 What Is Your Current Pack Years? 30ormorepac yareli Information not available 01/26/2025 Performs Monthly Self-breast Exam? Yes Information not available 01/03/2017 What Is Your Relationship Status? Information not available 01/26/2025 Seat Belts Used Routinely Yes Information not available 01/03/2017 Are You Sexually Active? Yes Information not available 12/31/2017 Smoke Alarm In Home Yes Information not available 01/03/2017 At What Age Did You Start Smoking Tobacco? 18 Information not available 01/03/2017 Are You Passively Exposed To Smoke? Yes Information not available 01/03/2017 How Much Tobacco Do You Smoke? 1 PPW [email or web address] Information not available 05/18/2022 General Stress Level Low Information not available 12/31/2017 Do You Use Sunscreen Routinely? Yes Information not available 01/03/2017 Has Tobacco Cessation Counseling Been Provided? Yes Information not available 01/03/2017 On What Date Was Tobacco Cessation Counseling Provided? 10/06/2021 [email or web address] Information not available 10/06/2021 How Many Years Have You Smoked Tobacco? 45 Information not available 01/26/2025 Sex: Unknown Functional Status Question Answer Note LastModified by Organizat ion Details LastModified Time Do you or have you ever used any other forms of tobacco or nicotine? No Information not available 01/26/2025 What is your level of alcohol consumption? Occasional maybe 3 beers a year Information not available 01/03/2017 Are you currently employed? No Information not available 01/03/2017 Are you able to care for yourself? Yes Information not available 01/03/2017 What is your occupation? retired Information not available 01/03/2017 What is your exercise level? Moderate Information not available 12/31/2017 Mental Status None recorded. Family History Relationship Description Onset Age of this Age Resolved Age Notes LastModified by Organization Details LastModified Time Father No current problems or disability Not available 07/05 09:08:54 Mother No current problems or disability Not available 07/05 09:08:54 Mother Family history of malignant neoplasm breast cancer Not available 07/05/2017 09:09:53 Medical History Condition Response Coronary Artery Disease N Gout N Atrial Fibrillation N Kidney Stones N Hyperthyroidism N Parkinson's Disease N Alzheimer's N Depression N COPD N Hypothyroidism N Anemia N MRSA exposure N Difficulty Swallowing N Anxiety Disorder N Meniere's disease N Diabetes N Obesity N Arthritis N Mental Disorder N Tuberculosis N AIDS/HIV N Congestive Heart Failure (CHF) N Cancer N Stroke N Diverticulitis N Asthma N Reflux/GERD N High Cholesterol N Liver Disease N Heart Disease N Pulmonary Embolism N Fibromyalgia N Chronic Ear Infections N Hypertension N Osteoporosis N Kidney Disease N Gynecological History Statement/Question Response Date of Last Colonoscopy 07/18/2016 Most Recent Mammogram 07/05/2017 Most Recent Bone Density 08/14/2016 Obstetrics History GPAL:G 0 P 0 0 0 0 Immunizations Vaccine Type Date Status Note Provider Nam e and Address Organization Details Recorded Time Influenza, high-dose, trivalent, PF 8 completed Not Available [facility] 10/03/2019 02:49:24 pneumococcal polysaccharide PPV23 3 completed NILDA MUNOZ MD [address] [place], [address], [facility] 07/05/2017 07:50:20 Pneumococcal conjugate PCV 13 6 completed [facility] [place], [address], [facility] 07/05/2017 07:50:34 zoster live 2 completed NILDA MUNOZ MD [address] [place] [address] [place], [address], [facility] 07/05/2017 07:50:56 Tdap 2 completed NILDA MUNOZ MD [address] [place] [address] [place], [address], [facility] 07/05/2017 07:51:17 Hep B, unspecified formulation 2 completed NILDA MUNOZ MD [address] [place] [address] [place], [address], [facility] 07/05/2017 07:51:43 Hep B, unspecified formulation 2 completed NILDA MUNOZ MD [address] [place] [address] [place], [address], [facility] 07/05/2017 07:52:00 Hep B, unspecified formulation 2 completed NILDA MUNOZ MD [address] [place] [address] [place], [address], [facility] 07/05/2017 07:52:16 Influenza, high-dose, trivalent, PF 9 completed Not Available [facility] 10/03/2019 02:51:48 Influenza, high-dose, quadrivalent, PF 0 completed Inocencia Rai [facility] 06/08/2020 10:03:49 Influenza, high-dose, quadrivalent, PF 1 [facility] 06/28/2021 09:56:23 Influenza, adjuvanted, quadrivalent, PF 2 completed SONAM SAUCEDO, [employer] [address] [place], [address], [facility] 05/21/2022 17:50:40 Influenza, high-dose, trivalent, PF 7 completed Not Available [facility] 10/03/2019 02:45:19 SARS-COV-2 (COVID-19) vaccine, UNSPECIFIED 1 completed [facility] 04/03/2021 10:36:34 SARS-COV-2 (COVID-19) vaccine, UNSPECIFIED 1 completed Mitzi Perry [facility] 04/03/2021 10:36:38 COVID-19, mRNA, LNP-S, PF, 100 mcg/0.5mL dose or 50 mcg/0.25mL dose 1 completed Etienne Del Rosario [facility] 10/06/2021 10:30:22 Past Encounters Encounter ID Performer Location Encounter Start Date Encounter Closed Date Diagnosis/Indication Diagnosis SNOMED-CT Code Diagnosis ICD10 Code Diagnosis Note [id number] RONIT TIDWELL PA-C CARDIOLOG [address] [place] [address] 01/26/2025 09:54:59 01/26/2025 11:14:43 Hyperlipidemia 48017263 E78.5 Screening for HLD and DM ordered today. Prediabetes 248048187 R7 3.03 Noted 5.7 previously . Screening for HLD and DM ordered today. Right atri al enlargement [id number] 9106 I51.7 EKG shows NSR. WEST noted.Pt would like further evaluation of heart structure and function. Echo ordered.Chang salazar appointmen t with Dr. Ross in July. 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 No plans to quit. Discussed that more pack years correlates with higher lung disease risk, including lung cancer. However, pt is in denial. Recommende d screening with low-dose CT and annual physicals. Smoking cessation was recommende d due to the multiple potential adverse health effects of chronic tobacco abuse. Health Concerns Section Related Observation LastModified by Organization Detai ls LastModified Time None Recorded Concern Status LastModified by Organization Details LastModified Time None Recorded Payers Encounter Date Sequence Insurance Name Policy Number Policy Gomez Covered Member ID Gomez Member ID Guarantor Name 01/26/2025 1 [place] Adriana Forbes [id number] Adriana Forbes 01/26/2025 2 [employer] (MEDICARE SUPPLEMENT) Adriana Forbes [id number] Adriana Forbes Notes Date Note Type Note Provider Name and Address Organization Details Recorded Time 01/26/2025 text/html Ms. Forbes is a ve ry pleasant, 74 y.o. pt w/ a PMHx of prediabetes, HLD, tobacco dependence who is being seen today at the request of patient for an evaluation of weight loss. She notes 40 lbs weight loss gradually, x3 years. She attributes this to improving her diet and staying active.She has a 46 year history with 1 pack a day. Labs reviewed: CBC, B12, CMP, TSH with reflex FT4 were all unremarkable.Vitam in D was low. S he recently to [facility] for shakiness after starting vitamin D. Resolved on own. Family Hx:Mother: from old age 80-90's.Father from lung cancer in 80's, smoker.No heart disease in her family, usually live into 80's. She is active with housework, yard work, and walking. 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 Denies CP/pressure/tightn ess, palpitations, SOA, orthopnea, PND, syncope, near syncope, LE edema, dizziness, or TIA/CVA-like symptomatology. No abnormal bleeding. No complaints of fatigue, weakness, or tiredness today. RONIT TIDWELL PA-C [address] [place], [address], [facility] 01/26/2025 16:39:55 OBGyn Episode No OBEpisode recorded.
--- OUTSIDE RECORDS SUMMARY | 2025-02-18 17:01 | XMS_ITS | Data Portability ---
Author Organization [facility] ALEAH Acharya [place] CLOSED Address [address] [place] [address] Care Team Providers Care Front Desk Officer Name Role Phone JACQUIE SHELTON Primary Care Provider [phone] Assessment Encounter Date Assessment Date Assessment LastModified by Organization Details LastModified Time 05/18/2022 05/18/2022 Patient presented to office today for their Medicare Annual Wellness Visit. Wellness visit Questionnaire was reviewed. Depression screening was negative and no followup plan is needed. Emphasized preventive health measures including fall prevention to help reduce health risks and promote healthy living. [email or web address] Not available 05/18/2022 10:14:04 11/22/2022 11/22/2022 f/u in 1 yr FSE [email or web address] Not availab le 11/21/2022 13:47:11 11/25/2023 11/25/2023 f/u in 1 yr FSE [email or web address] Not availab le 11/25/2023 07:03:08 Plan of Treatment Reminders Order Date Submit Date Provider Last Modified By Organization Details Last Modified Time Details Appointments CARDIO ULTRASO UND 2024 11:15A M CARDIO_UL TRASOUND Not available Not available Not available RECHECK 2024 10:15A M MARY JO ROSS MD Not available Not available Not available Lab glycohe moglobi n, total, blood 2024 025 [facility], [address] [place] [address], [id number], 01/26/2025 15:46:52 lipid panel, serum 2024 025 [facility], [address] [place] [address], [id number], 01/26/2025 16:35:12 hemoglo bin A1C, fingers tick 2021 022 [email or web address] [facility], [address] [place] [address], [id number], 05/18/2022 10:50:06 lipid panel, serum [address] [facility], [address] [place] [address], [address], 05/25/2022 08:10:06 CMP, serum or plasma [address], [address] [place] [address], [address], 05/25/2022 08:10:07 glycohe moglobi n, total, blood 2021 022 [facility] [place] [address] [place] [address], [address], 10/06/2021 12:37:21 lipid panel, serum 2021 022 [email or web address] [facility], [address] [place] [address], [address], 10/06/2021 11:13:35 CMP, serum or plasma 2021 022 [facility] [place] [address] [place] [address], [address], 10/06/2021 13:09:21 Referral None recorde d. Procedures None recorde d. Surgeries None recorde d. Imaging US, doppler echocar diogram , w/ color flow 2024 025 [email or web address] [facility], [address] [place] [address] , [place], [address], 02/03/2025 11:47:28 MAMMO, screeni ng, tomosyn thesis, bilater al, w/ CAD 2021 022 [email or web address] [facility], [address] [place], [address], 10/24/2021 07:57:15 Medication Orders doxycyc line hyclate 100 mg capsule 2023 024 [facility], [address], [address], 01/26/2025 10:21:43 Patient TargetsNo targets recorded. Patient Instructions Encounter Date Encounter Id Patient Instructions Last Modified By Organization Details Last Modified Time 10/06/2021 [id number] Lung Cancer Screen Decision Aid [email or web address] Not available 10/06/2021 10:48:21 lung cancer screening eligibility assessment* [email or web address] Not available 10/06/2021 10:48:22 Quitting Tobacco: Care Instructions [email or web address] Not available 10/06/2021 10:51:50 05/18/2022 [id number] advance care planning: care instructions [email or web address] Not available 05/21/2022 17:53:52 11/22/2022 [id number] If any lesions change, or if any other new or symptomatic lesions occur, patient understands to return to the clinic for further evaluation Discussed sun precautions; SPF 30+ [email or web address] Not available 11/21/2022 13:47:11 11/25/2023 [id number] If any lesions change, or if any other new or symptomatic lesions occur, patient understands to return to the clinic for further evaluation Discussed sun precautions; SPF 30+ [email or web address] Not available 11/25/2023 07:03:08 01/26/2025 [id number] Heart Station Patient Instructions [email or web address] Not available 01/26/2025 11:11:11 Reason for Referral None Reported. Results Created Date Observation Date Name Description Value Unit Range Abnormal Flag Note LastModifiedBy Organization Detail LastModifiedTime 10/06/19 22 10/06/2021 GLYCO HEMOG LOBIN A1C glyco HGB A1C 5.9 % 0.0-5. 6 high Not Available [facility] [address] [place], [address], 10/06/2021 12:37:21 10/06/19 22 10/06/2021 GLYCO HEMOG LOBIN A1C estimated avg. glucose 123 mg/dL _(janneth c) normal A1c value s betwe en 5.7% to 6.4% indic ate predi abete s. Resul ts 6.5% or great er is diagn ostic of diabe miya. Ameri can Diabe miya Assoc iatio n (diab etes. org) Not Available [facility] [address] [place] [address], [address], 10/06/2021 12:37:21 10/06/19 22 10/06/2021 COMP. METAB OLIC PANEL glucose 100 mg/dL 74-100 normal Not Available [facility] [address] [place] [address], [address], 10/06/2021 13:09:20 10/06/19 22 10/06/2021 COMP. METAB OLIC PANEL blood urea nitrogen 17 mg/dL 6-20 normal Not Available [facility] [address] [place] [address], [address], 10/06/2021 13:09:20 10/06/19 22 10/06/2021 COMP. METAB OLIC PANEL creatinine 0.64 mg/dL 0.50-0 .95 normal Not Available [facility] [address] [place] [address], [address], 10/06/2021 13:09:20 10/06/19 22 10/06/2021 COMP. METAB OLIC PANEL BUN/creatini ne ratio 27 (calc ) 10-20 high Not Available [facility] [address] [place] [address], [address], 10/06/2021 13:09:20 10/06/19 22 10/06/2021 COMP. METAB OLIC PANEL sodium 141 mmol/ L 136-14 5 normal Not Available [facility] [address] [place] [address], [address], 10/06/2021 13:09:20 10/06/19 22 10/06/2021 COMP. METAB OLIC PANEL potassium 4.4 mmol/ L 3.4-5. 0 normal Not Available [facility] [address] [place] [address], [address], 10/06/2021 13:09:20 10/06/19 22 10/06/2021 COMP. METAB OLIC PANEL chloride 105 mmol/ L 98-107 normal Not Available [facility] [address] [place] [address], [address], 10/06/2021 13:09:20 10/06/19 22 10/06/2021 COMP. METAB OLIC PANEL carbon dioxide 25 mmol/ L 22-31 normal Not Available [facility] [address] [place] [address], [address], 10/06/2021 13:09:20 10/06/19 22 10/06/2021 COMP. METAB OLIC PANEL anion gap 11 (calc ) 7-25 normal Not Available [facility] [address] [place] [address], [address], 10/06/2021 13:09:20 10/06/19 22 10/06/2021 COMP. METAB OLIC PANEL calcium 9.7 mg/dL 8.6-10 .2 normal Not Available [facility] [address] [place] [address], [address], 10/06/2021 13:09:20 10/06/19 22 10/06/2021 COMP. METAB OLIC PANEL total protein 6.8 g/dL 6.4-8. 3 normal Not Available [facility] [address] [place] [address], [address], 10/06/2021 13:09:20 10/06/19 22 10/06/2021 COMP. METAB OLIC PANEL albumin 4.4 g/dL 3.5-5. 2 normal Not Available [facility] [address] [place] [address], [address], 10/06/2021 13:09:20 10/06/19 22 10/06/2021 COMP. METAB OLIC PANEL globulin 2.4 g/dL_ (calc ) 1.5-4. 5 normal Not Available [facility] [address] [place] [address], [address], 10/06/2021 13:09:20 10/06/19 22 10/06/2021 COMP. METAB OLIC PANEL albumin/glob ulin ratio 1.8 (calc ) 1.1-2. 5 normal Not Available [facility] [address] [place] [address], [address], 10/06/2021 13:09:20 10/06/19 22 10/06/2021 COMP. METAB OLIC PANEL bilirubin, total 0.7 mg/dL 0.1-1. 2 normal Not Available [facility] [address] [place] [address], [address], 10/06/2021 13:09:20 10/06/19 22 10/06/2021 COMP. METAB OLIC PANEL alkaline phosphatase 96 U/L 30-121 normal Not Available [facility] [address] [place] [address], [address], 10/06/2021 13:09:20 10/06/19 22 10/06/2021 COMP. METAB OLIC PANEL AST 19 U/L 0-32 normal Not Available [facility] [address] [place] [address], [address], 10/06/2021 13:09:20 10/06/19 22 10/06/2021 COMP. METAB OLIC PANEL ALT 13 U/L 0-33 normal Not Available [facility] [address] [place] [address], [address], 10/06/2021 13:09:20 10/06/19 22 10/06/2021 COMP. METAB OLIC PANEL GFR 102 >= 60 normal Not Available [facility] [address] [place], [address], 10/06/2021 13:09:20 10/06/19 22 10/06/2021 COMP. METAB OLIC PANEL GFR non- 88 >= 60 normal NOT E Chron ic kidne y disea se is defin ed as kidne y damag e for more than 3 month s or a GFR less than 60 mL/mi n/1.7 3 m2 for great er than 3 month s. This calcu latio n has not been valid ated in pregn ant women . For pedia tric patie nts refer to [employer] at[employer] https ://kassandra hayes.lacho mi/pr ofess ional s/KDO QI/gf r_cal culat orPed Not Available [facility] [address] [place] [address], [address], 10/06/2021 13:09:20 10/06/19 22 10/06/2021 lung cance r scree noemi eligi bilit y asses sment * Age 50-80 YES Not Available [facility] [address] [place] [address], [address], 10/06/2021 10:47:04 10/06/19 22 10/06/2021 lung cance r scree noemi eligi bilit y asses sment * Either current smoker or has quit within last 15 years YES Not Available [facility] [address] [place], [address], 10/06/2021 10:47:04 10/06/19 22 10/06/2021 lung cance r scree noemi eligi bilit y asses sment * Average of one pack a day for 20 yrs. (20 pack years) YES Not Available [facility] [address] [place] [address], [address], 10/06/2021 10:47:04 10/06/19 22 10/06/2021 lung cance r scree noemi eligi bilit y asses sment * Displays signs or symptoms of lung cancer NO Not Available [facility] [address] [place], [address], 10/06/2021 10:47:04 10/06/19 22 10/06/2021 lung cance r scree noemi eligi bilit y asses sment * Shared decision making with pt. Risk and benefits of CT lung screen discussed YES Not Available [facility] [address], [address], 10/06/2021 10:47:04 10/06/19 22 10/06/2021 lung cance r scree noemi eligi bilit y asses sment * Smoking cessation counseling provided YES Not Available [facility] [address], [address], 10/06/2021 10:47:04 10/06/19 22 10/06/2021 lung cance r scree noemi eligi bilit y asses sment * Order provided for LDCT YES Not Available [facility] [address] [place] [address], [address], 10/06/2021 10:47:04 05/18/20 22 05/18/2022 hemog lobin A1C, finge rstic k hemoglobin A1C % 5.7 % 4.0 - 5.6 Not Available [facility] [address] [place] [address], [address], 05/18/2022 10:30:25 10/24/19 24 10/24/2023 COMPL ETE BLOOD COUNT white blood cells 9.5 10*3/ uL 3.8-10 .8 normal Not Available [facility] [address] [place] [address], [address], 10/24/2023 15:07:43 10/24/19 24 10/24/2023 COMPL ETE BLOOD COUNT red blood cells 4.35 10*6/ uL 3.80-5 .20 normal Not Available [facility] [address] [place] [address], [address], 10/24/2023 15:07:43 10/24/19 24 10/24/2023 COMPL ETE BLOOD COUNT hemoglobin 13.5 g/dL 12.0-1 6.0 normal Not Available [facility] [address] [place] [address], [address], 10/24/2023 15:07:43 10/24/19 24 10/24/2023 COMPL ETE BLOOD COUNT hematocrit 40.4 % 35.0-4 7.0 normal Not Available [facility] [address] [place] [address], [address], 10/24/2023 15:07:43 10/24/19 24 10/24/2023 COMPL ETE BLOOD COUNT MCV 93 fL 80-100 normal Not Available [facility] [address] [place] [address], [address], 10/24/2023 15:07:43 10/24/19 24 10/24/2023 COMPL ETE BLOOD COUNT MCH 31 pg 26-35 normal Not Available [facility] [address] [place] [address], [address], 10/24/2023 15:07:43 10/24/19 24 10/24/2023 COMPL ETE BLOOD COUNT MCHC 34 g/dL 32-36 normal Not Available [facility] [address] [place] [address], [address], 10/24/2023 15:07:43 10/24/19 24 10/24/2023 COMPL ETE BLOOD COUNT RDW 13.7 % 11.0-1 5.0 normal Not Available [facility] [address] [place] [address], [address], 10/24/2023 15:07:43 10/24/19 24 10/24/2023 COMPL ETE BLOOD COUNT MPV 8.6 fL 6.2-10 .5 normal Not Available [facility] [address] [place] [address], [address], 10/24/2023 15:07:43 10/24/19 24 10/24/2023 COMPL ETE BLOOD COUNT platelet count 282 10*3/ uL 150-40 0 normal Not Available [facility] [address] [place] [address], [address], 10/24/2023 15:07:43 10/24/19 24 10/24/2023 COMPL ETE BLOOD COUNT neutrophil,a bsolute 6.1 10*3/ uL 1.6-8. 4 normal Not Available [facility] [address] [place] [address], [address], 10/24/2023 15:07:43 10/24/19 24 10/24/2023 COMPL ETE BLOOD COUNT lymphocyte,a bsolute 2.7 10*3/ uL 0.4-5. 1 normal Not Available [facility] [address] [place] [address], [address], 10/24/2023 15:07:43 10/24/19 24 10/24/2023 COMPL ETE BLOOD COUNT monocyte,abs olute 0.4 10*3/ uL 0.0-1. 2 normal Not Available [facility] [address] [place] [address], [address], 10/24/2023 15:07:43 10/24/19 24 10/24/2023 COMPL ETE BLOOD COUNT eosinophil,a bsolute 0.1 10*3/ uL 0.0-0. 8 normal Not Available [facility] [address] [place] [address], [address], 10/24/2023 15:07:43 10/24/19 24 10/24/2023 COMPL ETE BLOOD COUNT basophil,abs olute 0.1 10*3/ uL 0.0-0. 3 normal Not Available [facility] [address] [place] [address], [address], 10/24/2023 15:07:43 10/24/19 24 10/24/2023 COMPL ETE BLOOD COUNT % neutrophils 64.2 % 42.0-7 8.0 normal Not Available [facility] [address] [place] [address], [address], 10/24/2023 15:07:43 10/24/19 24 10/24/2023 COMPL ETE BLOOD COUNT % lymphocytes 28.9 % 11.0-4 7.0 normal Not Available [facility] [address] [place] [address], [address], 10/24/2023 15:07:43 10/24/19 24 10/24/2023 COMPL ETE BLOOD COUNT % monocytes 4.7 % 0.0-11 .0 normal Not Available [facility] [address] [place] [address], [address], 10/24/2023 15:07:43 10/24/19 24 10/24/2023 COMPL ETE BLOOD COUNT % eosinophils 1.1 % 0.0-7. 0 normal Not Available [facility] [address] [place] [address], [address], 10/24/2023 15:07:43 10/24/19 24 10/24/2023 COMPL ETE BLOOD COUNT % basophils 1.1 % 0.0-3. 0 normal Not Available [facility] [address] [place] [address], [address], 10/24/2023 15:07:43 10/24/19 24 10/24/2023 COMPL ETE BLOOD COUNT nucleated red cells 0.1 % 0.0-0. 9 normal Not Available [facility] [address] [place] [address], [address], 10/24/2023 15:07:43 10/24/19 24 10/24/2023 COMPL ETE BLOOD COUNT nucleated RBCs, absolute 0.01 10*3/ uL not estab. normal Not Available [facility] [address] [place] [address], [address], 10/24/2023 15:07:43 10/24/19 24 10/24/2023 TSH TSH 0.632 u[IU] /mL 0.270- 4.200 normal Not Available [facility] [address] [place] [address], [address], 10/24/2023 15:28:10 10/24/19 24 10/24/2023 GLYCO HEMOG LOBIN A1C glyco HGB A1C 5.8 % 0.0-5. 6 high Not Available [facility] [address] [place] [address], [address], 10/24/2023 15:34:31 10/24/19 24 10/24/2023 GLYCO HEMOG LOBIN A1C estimated avg. glucose 120 mg/dL _(janneth c) normal A1c value s betwe en 5.7% to 6.4% indic ate predi abete s. Resul ts 6.5% or great er is diagn ostic of diabe miya. Ameri can Diabe miya Assoc iatio n (diab etes. org) Not Available [facility] [address] [place] [address], [address], 10/24/2023 15:34:31 10/24/19 24 10/24/2023 BASIC METAB OLIC PANEL glucose 101 mg/dL 74-100 high Not Available [facility] [address] [place] [address], [address], 10/24/2023 15:35:22 10/24/19 24 10/24/2023 BASIC METAB OLIC PANEL blood urea nitrogen 17 mg/dL 6-20 normal Not Available [facility] [address] [place] [address], [address], 10/24/2023 15:35:22 10/24/19 24 10/24/2023 BASIC METAB OLIC PANEL creatinine 0.74 mg/dL 0.50-0 .95 normal Not Available [facility] [address] [place] [address], [address], 10/24/2023 15:35:22 10/24/19 24 10/24/2023 BASIC METAB OLIC PANEL BUN/creatini ne ratio 23 (calc ) 10-20 high Not Available [facility] [address] [place] [address], [address], 10/24/2023 15:35:22 10/24/19 24 10/24/2023 BASIC METAB OLIC PANEL sodium 142 mmol/ L 136-14 5 normal Not Available [facility] [address] [place] [address], [address], 10/24/2023 15:35:22 10/24/19 24 10/24/2023 BASIC METAB OLIC PANEL potassium 5.0 mmol/ L 3.4-5. 0 normal Not Available [facility] [address] [place] [address], [address], 10/24/2023 15:35:22 10/24/19 24 10/24/2023 BASIC METAB OLIC PANEL chloride 106 mmol/ L 98-107 normal Not Available [facility] [address] [place] [address], [address], 10/24/2023 15:35:22 10/24/19 24 10/24/2023 BASIC METAB OLIC PANEL carbon dioxide 27 mmol/ L 22-31 normal Not Available [facility] [address] [place] [address], [address], 10/24/2023 15:35:22 10/24/19 24 10/24/2023 BASIC METAB OLIC PANEL anion gap 9 (calc ) 7-25 normal Not Available [facility] [address] [place] [address], [address], 10/24/2023 15:35:22 10/24/19 24 10/24/2023 BASIC METAB OLIC PANEL calcium 9.2 mg/dL 8.6-10 .2 normal Not Available [facility] [address] [place], [address], 10/24/2023 15:35:22 10/24/19 24 10/24/2023 BASIC METAB OLIC PANEL GFR 84 >= 60 normal NOT E New calcu latio n for GFR (CKD- EPI 2020) is formu lated witho ut race adjus tment facto rs at the recom menda tion of the [employer] at[employer] and Ameri can Socie ty of Nephr ology . This calcu latio n has not been valid ated in pregn ant women . For lenchoia renetta baileye nts refer to https ://kassandra hayes.lacho rg/pr macario duque s/KDO QI/gf r_cal culat orPed Not Available [facility] [address] [place], [address], 10/24/2023 15:35:22 01/27/20 25 01/26/2025 GLYCO HEMOG LOBIN A1C glyco HGB A1C 5.9 % 0.0-5. 6 high Not Available [facility] [address] [place], [address], 01/26/2025 15:46:52 01/27/20 25 01/26/2025 GLYCO HEMOG LOBIN A1C estimated avg. glucose 123 mg/dL _(janneth c) normal A1c value s betwe en 5.7% to 6.4% indic ate predi abete s. Resul ts 6.5% or great er is diagn ostic of diabe miya. Ameri can Diabe miya Assoc iatio n (diab etes. org) Not Available [facility] [address] [place], [address], 01/26/2025 15:46:52 01/27/20 25 01/26/2025 LIPID PROFI LE HDL cholesterol 70 mg/dL 50-242 normal Not Available [facility] [address] [place], [address], 01/26/2025 16:35:12 01/27/20 25 01/26/2025 LIPID PROFI LE triglyceride s 106 mg/dL 0-149 normal TRIGL YCERI DE RANGE S RIC L: < 150 BORDE RLINE HIGH: 150 - 199 HIGH: 200 - 499 VERY HIGH: > OR = 500 Not Available [facility] [address] [place] [address], [address], 01/26/2025 16:35:12 01/27/20 25 01/26/2025 LIPID PROFI LE cholesterol 221 mg/dL 0-199 high SELVIN STERO L (TOTA L) RANGE S ZAYDA ABLE: < 200 BORDE RLINE : 200 - 239 HIGHE R RISK: > 239 Not Available [facility] [address] [place] [address], [address], 01/26/2025 16:35:12 01/27/20 25 01/26/2025 LIPID PROFI LE LDL cholesterol 130 mg/dL _(janneth c) 0-99 high LDL SELVIN STERO L RANGE S OPTIM AL: < 100 NEAR/ ABOVE OPTIM AL: 100 - 129 BORDE RLINE HIGH: 130 - 159 HIGH: 160 - 189 VERY HIGH: > OR = 190 Not Available [facility] [address] [place] [address], [address], 01/26/2025 16:35:12 01/27/20 25 01/26/2025 LIPID PROFI LE chol/HDL ratio (calc) 3.2 mg/dL normal NO RIC L RANGE ESTAB LISHE D FOR SELVIN STERO L/HDL RATIO (CALC ULATE D). Not Available [facility] [address] [place] [address], [address], 01/26/2025 16:35:12 12/15/19 22 12/14/2021 MAMMO , scree noemi, tomos ynthe sis, bilat eral, w/ CAD [facility] [address] [place] [address] Anjana estevez Name: ADRIANA estevez : 1949 Age: 71 years Anjana t Orderi ng Provid er: LEN VIERA IRTOSHIA EXAM DATE: 2021 EXAM: MG SCREEN ING [place] MAMMOG [place] INDICA TION: Routin e screen ing. PROCED URE: Multis lice imagin g of both breast s was perfor med in standa rd projec tions using Hologi c Seleni a Dimens ions tomosy nthesi s equipm ent (3D mammog hardik) . 2D images were create d from the 3D datase t using C-View softwa re. The study was read with the assist ance of Comput er Aided Detect ion (CAD) softwa re. COMPAR JUS: This was compar ed with previo us mammog galo dated 2020, 2018, 2017 FINDIN GS: The breast s are hetero geneou sly dense. This may lower the sensit ivity of mammog hardik. There is no suspic ious mass or cluste r of calcif icatio ns. No tessa ectura l distor tion. IMPRES AGUSTIN: BI-RAD S catego ry 1, Negati ve. There is no eviden ce of malign remigio. Screen ing mammog galo are recomm ended in one year. Result s were mailed or given to the anjana estevez. Interp reted By: Antoni Valle MD Electr onical ly Signed By: Antoni Valle MD on 022 12:59 PM [email or web address] [facility] [address] [place], [address], 05/21/2022 17:50:57 01/28/20 25 01/26/2025 elect rocar diogr am No observ ation record ed. BARCODE Not Available 2024 08:22:09 Result Notes None recorded. 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 Active 2015 From [employer];Pro vider: Sonam Saucedo; Status: Active Not Available [facility] 6 09:51:48 Pain of hip region 81826677 Completed 201510/06/2021 From [employer] Load;Pro vider: Sonam Saucedo; Status: Active LEN LEE MD [address] [place] [address], [address] , [facility] 2 09:55:04 Senile hyperker atosis [id number] Completed 201401/03/2017 From [employer];Pro vider: Rashmi Flor ;Status: Active NILDA MUNOZ MD [address] [place] [address], [address] , [facility] 7 12:31:06 Scarring alopecia 026452207 Active 2014 From Automate d Load;Pro vider: Rashmi Flor ;Status: Active Not Available [facility] 6 09:51:48 Hemangio ma 902872378 Active 2014 From Automate d Load;Pro vider: Rashmi Flor ;Status: Active Not Available [facility] 6 09:51:48 Familial combined hyperlip idemia 065945036 Completed 201401/03/2017 From Automate d Load;Pro vider: Nilda Munoz;Sta tus: Active NILDA MUNOZ MD [address] [place] [address], [address] , [facility] 7 12:31:03 Lack of energy 808490415 Completed 201410/06/2021 From Automate d Load;Pro vider: Nilda Munoz;Sta tus: Active LEN LEE MD [address] [place] [address], [address] , [facility] 2 09:55:07 Hyperlip idemia 02733012 Active 2016 NILDA MUNOZ MD [address] [place] [address], [address] , [facility] 7 12:31:01 Fatigue 43287830 Active 2016 NILDA MUNOZ MD [address] [place] [address], [address] , [facility] 7 12:31:11 Epidermo id cyst of skin 691116397 Active 2015 From Automate d Load;Pro vider: Rashmi Flor ;Status: Active Not Available [facility] 7 06:14:48 Lentigo Active 2015 From Automate d Load;Pro vider: Rashmi Flor ;Status: Active Not Available [facility] 7 07:37:58 History of polyp of colon 828921396 Active 2021 LEN LEE MD [address] [place] [address], [address] , [facility] 2 09:57:01 Notes:: Depression Screening* Date:07/02/2016 Problem Notes None recorded. Procedures Surgical History Date Name Laterality Status Provider Name and Address Organization Details Recorded Time 01/27/20 EKG completed RONIT TIDWELL PA-C [address] [place] [address], [address], [facility] 01/26/2025 16:32:51 11/25/19 24 Destruction BN Lesions completed RASHMI FLOR DO [address] [place] [address], [address], [facility] 11/25/2023 12:31:16 10/06/[address] Lung Screening Counseling completed LEN LEE MD [address] [place] [address], [address], [facility] 10/06/2021 10:46:20 10/05/19 21 Destruction Premalignant Lesion(s) completed Jaelyn Phillips [facility] 10/05/2020 10:04:52 10/05/19 21 Destruction BN Lesions completed Jaelyn Phillips [facility] 10/05/2020 10:03:54 04/18/20 20 laser assisted in situ keratomileusis of bilateral eyes completed Lexie Knott [facility] 01/26/2025 10:25:44 06/16/20 19 Biopsy Skin Lesion; Tangential completed [facility] 06/16/2019 12:00:08 07/05/20 17 Most Recent [place] [facility] [place]/31/2017 10:45:44 08/14/20 16 Most Recent Bone Density [place] [facility] 12/31/2017 10:45:35 07/18/20 16 Date of Last Colonoscopy [place] [facility] 12/31/2017 10:45:07 Eye Surgery [place] [facility] 01/03/2017 12:03:38 Tonsillectomy completed [facility] 12/25/2018 10:36:31 dental surgical procedure completed Anila Claire [facility] 05/18/2022 10:22:10 Imaging Results None recorded. Procedure Notes None recorded. Medical Equipment None Reported. Allergies Allergen ID Allergen Name Allergen Category Reaction Reaction Severity Criticality Documentation Date Start Date Code Code System Note Provider Name and Address Organization Details Recorded Time 426389 Product containin g penicilli n (product) medicatio n anaphylax is Not available Not available 08/10/20162010 91908 8001 SNOMED React ion: ANAPH YLAXI S; Comme nt: Creat ed By: Huy lopez December ;Hardeep norton Date: 2010 1:52: 19 PM; Not Available [facility] 08:19:47 790344 ergocalci ferol medicatio n confusion moderate Not available 01/26/20252024 4018 [facility] 10:21:15 Medications Name Sig Start Date Stop [...] height Body mass index (BMI) Body weight Heart rate Oxygen saturation Oxygen saturation in Arterial blood by Pulse oximetry Systolic blood pressure Diastolic blood pressure Provider Name and Address Organization Details Last Updated DateTime 2 162.56 cm 20.9 kg/m2 50261.2 7 g 68 /min 98 % 98 % 118 mm[Hg] 64 mm[Hg] [facility] 2 10:32:13 Date Recorded Body height Body mass index (BMI) Body weight Oxygen saturation Oxygen saturation in Arterial blood by Pulse oximetry Heart rate Systolic blood pressure Diastolic blood pressure Provider Name and Address Organization Details Last Updated DateTime 5 162.56 cm 18.6 kg/m2 90397.1 3 g 96 % 96 % 90 /min 106 mm[Hg] 58 mm[Hg] Lexie Knott [facility] 5 10:28:50 Date Recorded Body height Body mass index (BMI) Body weight Heart rate Oxygen saturation Oxygen saturation in Arterial blood by Pulse oximetry Systolic blood pressure Diastolic blood pressure Provider Name and Address Organization Details Last Updated DateTime 2 162.56 cm 19.1 kg/m2 63617.7 5 g 69 /min 99 % 99 % 104 mm[Hg] 64 mm[Hg] Anila Claire [facility] 2 10:28:37 Social History Question Answer Notes LastModified by Organizat ion Details LastModified Time Tobacco Smoking Status Current Some Day Smoker Estrellita Mcdaniel [facility] 01/03/2017 11:56:33 Do You Have An Advance [...] What Is Your Current Pack Years? 30ormorepac [email or web address] Information not available 01/26/2025 Performs Monthly Self-breast [...] Much Tobacco Do You Smoke? 1 PPW [email or web address] Information not available 05/18/2022 General Stress Level Low Information not available 12/31/2017 Do You Use Sunscreen Routinely? Yes Information not available 01/03/2017 Has Tobacco Cessation Counseling Been Provided? Yes Information not available 01/03/2017 On What Date Was Tobacco Cessation Counseling Provided? 10/06/2021 [email or web address] Information not available 10/06/2021 How Many Years [...] Hyperthyroidism N Parkinson's Disease N Alzheimer's N Hypothyroidism N Depression N COPD N Anemia N MRSA exposure N Difficulty Swallowing N Anxiety Disorder N Meniere's disease N Diabetes N Obesity N Arthritis N Mental Disorder N Tuberculosis N AIDS/HIV N Congestive Heart Failure (CHF) N Cancer N Stroke N Diverticulitis N Asthma N Reflux/GERD N High Cholesterol N Liver Disease N Heart Disease N Pulmonary Embolism N Fibromyalgia N Hypertension N Chronic Ear Infections N Osteoporosis N Kidney Disease N Gynecological History Statement/Question Response Date of Last Colonoscopy 07/18/2016 Most Recent Mammogram 07/05/2017 Most Recent Bone Density 08/14/2016 Obstetrics History GPAL:G 0 P 0 0 0 0 Immunizations Vaccine Type Date Status Note Provider Nam e and Address Organization Details Recorded Time Influenza, high-dose, trivalent, PF 8 completed Not Available [facility] 10/03/2019 02:49:24 pneumococcal polysaccharide PPV23 3 completed NILDA MUNOZ MD [address] [place] [address] [place], [address], [facility] 07/05/2017 07:50:20 Pneumococcal conjugate PCV 13 6 completed NILDA MUNOZ MD [address] [place] [address] [place], [address], [facility] 07/05/2017 07:50:34 zoster live 2 completed NILDA MUNOZ MD [address] [place] [address] [place], [address], [facility] 07/05/2017 07:50:56 Tdap 2 completed NILDA MUNOZ MD [address] [place] [address], [address], [facility] 07/05/2017 07:51:17 Hep B, unspecified formulation 2 completed NILDA MUNOZ MD [address] [place] [address] [place], [address], [facility] 07/05/2017 07:51:43 Hep B, unspecified formulation 2 completed NILDA MUNOZ MD [address] [place] [address] [place], [address], [facility] 07/05/2017 07:52:00 Hep B, unspecified formulation 2 completed NILDA MUNOZ MD [address] [place] [address] [place], [address], [facility] 07/05/2017 07:52:16 Influenza, high-dose, trivalent, PF 9 completed Not Available [facility] 10/03/2019 02:51:48 Influenza, high-dose, quadrivalent, PF 0 completed Inocencia Rai [facility] 06/08/2020 10:03:49 Influenza, high-dose, quadrivalent, PF 1 completed Radhabrandon Anne [facility] 06/28/2021 09:56:23 Influenza, adjuvanted, quadrivalent, PF 2 completed SONAM SAUCEDO APRN [address] [place], [address], [facility] 05/21/2022 17:50:40 Influenza, high-dose, trivalent, PF 7 completed Not Available [facility] 10/03/2019 02:45:19 SARS-COV-2 (COVID-19) vaccine, UNSPECIFIED 1 completed Mitzi Perry [facility] 04/03/2021 10:36:34 SARS-COV-2 (COVID-19) vaccine, UNSPECIFIED 1 [facility] 04/03/2021 10:36:38 COVID-19, mRNA, LNP-S, PF, 100 mcg/0.5mL dose or 50 mcg/0.25mL dose 1 completed Etienne Del Rosario [facility] 10/06/2021 10:30:22 Past Encounters Encounter ID Performer Location Encounter Start Date Encounter Closed Date Diagnosis/Indication Diagnosis SNOMED-CT Code Diagnosis ICD10 Code Diagnosis Note [id number] NILDA MUNOZ MD [facility] [address] [place] [address] 01/03/2017 11:00:00 01/03/2017 12:44:40 Hyperlipidemia 24582942 E78.5 Fatigue 58671227 R53.83 [id number] RASHMI FLOR DO [facility] [address] [place] [address] 06/13/2017 11:04:28 06/14/2017 09:25:58 Solar lentigo 80989515 L81.4 Benign, reassureco ntinue sunscreen annual skin exam Senile hyperkeratosis 39 9630895 L82.1 Benign, reassure Senile angioma 2178762 I 78.1 Benign, reassure Milia 880949226 L72.0 I made a small superficia l incision over milium with 11 blade and extracted with comedome extactorri ght clavicle the eyelid milium is not bothersome to her. 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 Benign, reassure [id number] [place] [address] [place], [place] [address] 07/05/2017 08:24:55 07/05/2017 09:51:34 Body mass index 25-29 - overweight 173580443 Z68.25 Hyperlipidemia 65816874 E78.5 Fatigue 16953086 R53.83 Dysuria 52811611 R30.0 Administra tion of influenza vaccine 90897772 Z23 [id number] NILDA MUNOZ MD [facility] [address] [place] [address] 12/31/2017 10:31:49 12/31/2017 11:06:41 Hyperlipidemia 02078809 E78.5 Fatigue 29118162 R53.83 [id number] RASHMI FLOR DO [facility] [address] [place] [address] 06/16/2018 10:55:45 06/16/2018 13:31:43 Solar lentiginosis 794266568 L81.4 Benign Reassuranc e sunscreen hat Multiple b enign melanocytic nevi 783330478 D22.9 Benign Reassuranc e annual fbse Senile angioma 0214246 I 78.1 Benign Reassuranc e Senile hyperkeratosis 39 5950184 L82.1 Benign Reassuranc e [id number] NILDA MUNOZ MD [facility] [address] [place] [address] 07/07/2018 10:21:11 07/07/2018 14:18:46 Administration of influenza vaccine 36233922 Z23 Adult heal th examination 570192866 Z00.00 Hyperlipidemia 11670639 E78.2 Fatigue 32794445 R53.83 Dysuria 91886934 R30.0 Viral screening 22276195 4 Z11.59 Hand pain 68155196 M79.6 41 M79.443 [id number] DAGOBERTO JEFF MD [facility] [address] [place] [address] 08/05/2018 09:17:52 08/06/2018 07:49:18 Pain of multiple joints 87551020 M25.50 a pleasant 68-year-ol d female seen today as a new patient for evaluation of pain, stiffness, and progressiv e deformitie s of the fingers. Clinically she has features of advanced degenerati ve, osteoarthr itis of the hands. However presence of dactylitis raises some concerns about an underlying inflammato ry joint disease such as psoriatic arthritis sine psoriasis or gouty arthritis. She does not have any features of sarcoidosi s. Similarly she does not have any features of connective tissue disease processes. Certainly rheumatoid is in the differenti al diagnosis but typically dactylitis is not a feature of rheumatoid arthritis. Another possibilit y is erosive michelle osteoarthr itis of the hands. Have discussed these concerns with the patient and her . I have suggested them to obtain x-rays of bilateral hands along with routine studies for inflammato ry joint diseases. I will see her after these studies for further discussion . patient returned after the x-rays which I reviewed with her in great detail. 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 I did not appreciate features of rheumatoid arthritis. Similarly no features of psoriatic arthritis or gouty arthritis noted. This is reviewed and discussed in detail with the patient and her . This treatment is supportive and symptomati c. I suggested her to use Voltaren gel 1% to her knuckles as needed basis. Continue with range of motion exercises as well as applicatio n of moist heat as appropriat e. We decided to hold off on the use of intra-evelyne cular corticoste roid injections as she would like to use the Voltaren gel first. I will certainly follow on the lab studies obtained today. She will return to my office in one year or sooner if needed. Could sleep [id number] [facility] [place] [facility] [address] [place] [address] 12/25/2018 09:55:07 12/25/2018 11:36:43 Upper respiratory infection 49212596 J06.9 Patient likely has a viral upper respirator y infection. Will treat as below. Continue allergy medication s. Supportive care reviewed: humidifier use, saline nasal spray, rest, lozenges, hot tea to soothe throat. Encourage PO fluids and monitor hydration status, infection control measures. Recommende d acetaminop hen/ibupro fen PRN pain, fever; reviewed appropriat e doses. No current sinusitis but will send antibiotic with patient, as she will be in [place] for two weeks and advised to hold and not use unless symptoms worsen or not improved by 7-10 day nguyen. Pt has true PCN allergy so will send doxy. Doxycyclin e precaution s were discussed including photosensi tivity, avoidance of dairy and taking each dose with at least 8 ounces of water ant not laying down for at least 30 minutes after each dose to avoid reflux esophagiti s. Pt. expressed understand ing and agreement. Low back pain 950669008 M54.5 Resolved. May be attributab le to gas pains? No other co-occurri ng symptoms. Advised patient monitor symptoms and return to clinic or ER immediatel y if returns. Patient given heavy precaution s that if she has new or worsening chest pain, shortness of breath, numbness or tingling of extremitie s, n/v/d, headache, pain radiating to jaw or arm, or diaphoresi s, that she should seek immediate evaluation at clinic, PCP or ER. She acknowledg es understand ing. [id number] NILDA MUNOZ MD [facility] [address] [place] [address] 02/26/2019 11:49:16 02/26/2019 12:33:42 Hyperlipidemia 63403111 E78.2 Fatigue 45445201 R53.83 [id number] RASHMI FLOR DO [facility] [address] [place] [address] 06/16/2019 11:14:35 06/16/2019 13:03:33 Solar lentigo 86132556 L81.4 Benign Reassuranc e Discussed sun precaution s; SPF 30+; hats Senile hyperkeratosis 39 4271601 L82.1 Benign Reassuranc e Senile angioma 1524175 I 78.1 Benign Reassuranc e Multiple b enign melanocytic nevi 459921907 D22.9 Benign Appearance Neoplasm o f uncertain behavior of skin 40664737 D48.5 left dorsal foot r/o SCC shave biopsy see procedure note wound care instructio ns provided patient consents for procedure and photo monitoring [id number] NILDA MUNOZ MD [facility] [address] [place] [address] 07/10/2019 14:11:28 07/10/2019 15:49:04 Adult health examination 945155243 Z00.00 Hyperlipidemia 10232136 E78.2 Fatigue 53079218 R53.83 Administra tion of influenza vaccine 43807270 Z23 [id number] MIRZA HERNANDEZ MD SURGERY SCHEDULE [address] [place] [address] 07/29/2019 08:52:06 07/29/2019 08:58:54 [id number] ABDULKADIR SONI MD FLU VACCINE CLOSED [address] [place] [address] 1 06/08/2020 10:02:09 06/08/2020 10:06:26 Administration of influenza vaccine 75178460 Z23 [id number] NILDA MUNOZ MD [facility] [place] [address] 09/20/2020 14:43:24 09/20/2020 16:00:10 Adult health examination 904964147 Z00.00 Hyperlipidemia 68298993 E78.2 Fatigue 64682725 R53.83 [id number] RASHMI FLOR DO [facility] [address] [place] [address] 10/05/2020 08:57:01 10/05/2020 11:01:26 Solar lentigo 43228181 L81.4 Benign Reassuranc e Senile hyperkeratosis 39 1529487 L82.1 Benign Reassuranc e Senile angioma 7442188 I 78.1 Benign Reassuranc e Multiple b enign melanocytic nevi 082984733 D22.9 Benign Reassuranc e Patient ad vised about exposure to the sun 446707811 Z71.89 recommende d sun protective clothing and a mineral based sunscreen 30 SPF or higher lotion OTC daily Inflamed s eborrheic keratosis 325981069 L82.[address] per patients request: R inguinal x1 pt tolerated well advised pt what to expect with freezing Skin sensa tion disturbance 50574755 R20.9 ISK Actinic keratosis 448565 007 L57.0 Education then treated with LN; L helix x1 pt tolerated well advised pt what to expect with freezing [id number] [place] [address] [place] [address] 04/03/2021 09:53:04 04/03/2021 11:28:43 Hyperlipidemia 99335864 E78.2 Fatigue 63657467 R53.83 [id number] CHANTAL PAGE [place] [address] 06/28/2021 09:40:36 06/28/2021 10:08:12 Administration of influenza vaccine 74233802 Z23 [id number] RASHMI FLOR DO [facility] [address] [place] [address] 10/05/2021 09:45:13 10/05/2021 10:41:55 Solar lentigo 54546029 L81.4 Benign Reassuranc e Senile hyperkeratosis 39 6314595 L82.1 Benign Reassuranc e Senile angioma 0095273 I 78.1 Benign Reassuranc e Multiple b enign melanocytic nevi 130510290 D22.9 Benign Reassuranc e Patient ad vised about exposure to the sun 237907442 Z71.89 recommende d sun protective clothing and a mineral based sunscreen 30 SPF or higher lotion OTC daily Fine wrinkles on face 24 4432704 R23.4 samples of hyaluronic serum B5 serum from [employer] [id number] LEN LEE MD [facility] [address] [place], [place] [address] 10/06/2021 09:50:37 10/06/2021 11:50:48 Hyperlipidemia 02376901 E78.2 Uncontroll ed LDL *135 04-03-2021 Reviewed trend, should be on medication but failed Pravastati n 40 mg dose (SE's). Then deferred given weight loss and declined cholestero l levels. LDL trend: 07/07/2018 169 mg/dl (calc)02/14 156 mg/dl (calc)06/17 145 mg/dl (calc)01/2021 142 MG/DL (CALC)03/16 135 mg/dl (calc) Discussed high risk stroke or [place]. Should be on a statin for heavy smoking history. Discussed at length; she will not take any cholestero l lowering therapy including Zetia (ezetimide ) or fish oil. 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 Impaired f asting glycemia 927445598 R73.01 Gluc *107 04-03-2021 Viral screening 12765153 4 Z11.59 hepatitis C Ab, screen 07-07-2018 Screening for malignant neoplasm of breast 835935415 Z12.39 Last 09/20/2020 History of polyp of colon 613252918 Z86.010 07/29/19 polyp; repeat 5y Nicotine dependence 5629 4008 Z87.891 F17.210 Discussed, she does not to quit Screening for osteoporosis 675414985 Z13.820 08/14/2016 normal DEXA [id number] SONAM SAUCEDO APRN [facility] [address] [place] [address] 05/18/2022 09:55:20 05/24/2022 12:11:15 Adult health examination 352684537 Z00.00 Hyperglycemia 31880519 R 73.9 Hyperlipidemia 56831525 E78.5 Administra tion of influenza vaccine 32216599 Z23 [id number] RASHMI FLOR DO [facility] [address] [place] [address] 11/22/2022 10:39:01 11/22/2022 12:25:23 Solar lentigo 98304507 L81.4 Benign Reassuranc e recommende d sun protective clothing and a mineral based sunscreen 30 SPF or higher lotion OTC daily Senile hyperkeratosis 39 6458817 L82.1 Benign Reassuranc e Senile angioma 3203715 I 78.1 Benign Reassuranc e Multiple b enign melanocytic nevi 848673834 D22.9 Benign Reassuranc e no change in lesion on left foot [id number] RASHMI ROD, DO [facility] [address] [place] [address] 11/25/2023 11:01:56 11/25/2023 11:57:23 Solar lentigo 45741207 L81.4 Benign Reassuranc e recommende d sun protective clothing and a mineral based sunscreen 30 SPF or higher lotion OTC daily Senile hyperkeratosis 39 1018153 L82.1 Benign Reassuranc e Senile angioma 9605822 I 78.1 Benign Reassuranc e Multiple b enign melanocytic nevi 226734937 D22.9 Benign Reassuranc e no change in lesion on left foot Tick bite 12256566 W57.X XXA removed on left abdomen via tractionNo redness, no sign of infection or EMStart Doxycyclin e for prevention for lyme/other tick born illnesses - two capsules single dose Inflamed s eborrheic keratosis 890016250 L82.[address] per patients request: left inframamma ry x multiple, right inframamma ry x several , lower abdomen x 1 pt tolerated well advised pt what to expect with freezingTr eated with LN per patients request Tenderness of skin 77674 9000 R20.8 ISK, lesions are itchy and bothersome 49320185 RONIT TIDWELL PA-C [facility] [address] [facility] [place] [address] 01/26/2025 09:54:59 01/26/2025 11:14:43 Hyperlipidemia 93762156 E78.5 Screening for HLD and DM ordered today. Prediabetes 476149296 R7 3.03 Noted 5.7 previously . Screening for HLD and DM ordered today. Right atri al enlargement 6550302634 9106 I51.7 EKG shows NSR. WEST noted.Pt would like further evaluation of heart structure and function. Echo ordered.Chang salazar appointmen t with Dr. Ross in July. 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 [...] by Organization Details LastModified Time None Recorded Advance Directives Directive Y: Payers Insurance Date Sequence Insurance Name Policy Number Policy Gomez Covered Member ID Gomez Member ID Guarantor Name 02/16/2025 1 [place] Adriana Forbes [id number] Adriana Forbes 01/26/2025 2 [employer] (MEDICARE SUPPLEMENT) Adriana Forbes [id number] Adriana Forbes 02/16/2025 2 [employer] (MEDICARE SUPPLEMENT) Adriana Forbes [id number] Adriana Forbes Notes Date Note Type Note Provider Name and Address Organization Details Recorded Time 10/06/2021 text/html 71[facility] Dr Munoz for the last 10y after prior PCP retired. Other providers: Dentist. Rashmi Flor DO, Dermatology. Mirza Hernandez MD, Gastroenterology for endoscopy. Dagoberto Jeff MD, Rheumatology seen 2018 for joint issues.Weight loss over the last 3 years LEN LEE MD [address] [place] [address], [phone], [facility] 10/06/2021 11:16:13 05/18/2022 text/html Medicare Annual Wellness VisitReported bypatient.Diet and Nutrition:healthy diet Fracture Risk:no history of fractures Physical Activity:exercises on a regular basis; good physical condition Current level of painMild pain: 09/25 to 2 Onset:chronic arthritis for past 3 years Alleviated With:unrelieved Depression Risk:never feels sad, empty, or tearful; no agitation; no loss of energy; no thoughts of suicide; no history of depression Orientation:no disorientation to time; no disorientation to date; no disorientation to place Concentration and Memory:no decreased concentrating ability; no memory lapses or loss; does not forget words Speech/Motor difficulties:no speech difficulties; no difficulty writing/copying; no slowed reaction time; does not knock things over when trying to pick them up Hearing:no loss of hearing Vision:no vision problems Activities of Daily Living:able to bathe with limited or no assistance; able to contol urination and bowels; able to dress with limited or no assistance; able to feed self with limited or no assistance; able to get out of chair or bed with limited or no assistance; able to groom with limited or no assistance Instrumental Activities of Daily Living:able to do house work with limited or no assistance; able to grocery shop with limited or no assistance; able to manage medications with limited or no assistance; able to manage money with limited or no assistance; able to prepare meals with limited or no assistance; able to use the phone with limited or no assistance Falls Risk Assessment:no frequent falls while walking; no fall in the past year Home Safety:no unsafe alisha hazzards; no unsafe stairs; working smoke/CO detectors; use of seatbelts; has hand bars in the bathroom/shower; good lighting in the home Adriana Forbes presents today for wellness exam. She has hyperlipidemia and fatigue. She has hyperglycemia but A1C is good today.Overall, she is doing well. see current medication list. She was followed by rheumatology for arthritis particularly in her hands but not seeing them now. SONAM SAUCEDO, CUSTOMER SUPPORT MANAGER [address] [place], [address], [facility] 05/21/2022 17:54:31 11/22/2022 text/html Established [facility] ent Presents for full skin exam. Patient has no lesions of concern. check spots/moles over body Denies any other new or changing lesions. Feels well today. Denies family history of malignant melanoma. RASHMI FLOR DO [address] [place], [address], [facility] 11/22/2022 13:06:49 11/25/2023 text/html Established [facility] ent Presents for full skin exam. Advise to check brown spots under L breast and L side check spots/moles over body Denies any other new or changing lesions. Feels well today. Denies family history of malignant melanoma. RASHMI FLOR DO [address] [place], [address], [facility] 11/25/2023 12:32:48 01/26/2025 text/html Ms. Forbes is a ve [...] CMP, TSH with reflex FT4 were all unremarkable.Vitamin D was low. S he recently to [facility] for shakiness after starting vitamin D. Resolved on own. Family Hx:Mother: from old age 80-90's.Father from lung cancer in 80's, smoker.No heart disease in her family, usually live into 80's. She is active with housework, yard work, and walking. 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 Denies CP/pressure/tightnes s, palpitations, SOA, orthopnea, PND, syncope, near syncope, LE edema, dizziness, or TIA/CVA-like symptomatology. No abnormal bleeding. No complaints of fatigue, weakness, or tiredness today. RONIT TIDWELL PA-C [address] [place], [address], [facility] 01/26/2025 16:39:55 OBGyn Episode No OBEpisode recorded.
--- NOTE | 2025-02-18 17:32 | PC.NURSE ---
attempted to stick patient twice with no success er charge made aware
[2025-02-18] MEDS: ACETAMINOPHEN 1,000MG/100ML VIAL 1000 MG IV (17:46)
[2025-02-18] MEDS: KETOROLAC 30MG/ML VIAL 15 MG IV (17:46)
[2025-02-18] MEDS: ONDANSETRON 4MG/2ML VIAL 4 MG IV (17:46)
[2025-02-18] MEDS: 0.9 % SODIUM CHLORIDE 1000ML 1,000 ML 999 ML IV (17:47)
[2025-02-18 17:49] LABS: Microscopic, Urine URINE MICROSCOPIC (MICROSCOPIC)
[2025-02-18 17:53] LABS: Appearance,Urine CLEAR (Clear); Bilirubin,Urine Negative (Negative); Blood, Urine TRACE-I (Negative); Color,Urine YELLOW (Yellow); Glucose,Urine (UA) Negative (Negative); Ketones,Urine Negative (Negative); Leukocyte Esterase,Urine Negative (Negative); Nitrate,Urine Negative (Negative); Protein,Urine Negative (Negative); Urobilinogen,Urine 0.2 EU/dl (0.2)
[2025-02-18 17:57] LABS: Specific Gravity, Urine 1.022 (1.005-1.030)
[2025-02-18 18:21] LABS: Bacteria,Urine 2+ /lpf; Mucus,Urine 4+ /lpf; RBC,Urine 20-50 #/hpf (0-3)
[2025-02-18 18:36] LABS: Alanine Aminotransferase 17 U/L (12-78); Albumin Level 3.8 g/dl (3.5-5.0); Albumin/Globulin Ratio 1.6 (1.1-1.8); Alkaline Phosphatase 78 U/L (38-126); Aspartate Amino Transferase 26 U/L (14-36); Bilirubin,Total 1.2 mg/dl (0.2-1.3); Blood Urea Nitrogen 22 mg/dl (7-17); Calcium 8.8 mg/dl (8.4-10.2); Carbon Dioxide 22 mmol/L (22.0-30.0); Chloride 111 mmol/L (98-107); Creatinine Clearance Estimated 37 mL/min (50-200); Estimated Glomerular Filt Rate 61 ml/min (>60); GFR (African American) 74 ML/MIN (>60); Globulin 2.4 g/dL (1.3-3.2); Glucose 117 mg/dl (74-100); Magnesium 1.8 mg/dl (1.6-2.3); Sodium 136 mmol/L (136-145); Total Protein,Serum 6.2 g/dl (6.3-8.2)
[2025-02-18 18:42] LABS: C-Reactive Protein < 0.3 mg/L (0-4)
[2025-02-18 18:48] LABS: Basophils # 0.1 K/mm3 (0-0.2); Basophils % 0.5 % (0.1-2.0); Eosinophils % 0.1 % (0.1-12.0); Hematocrit 37.6 % (37.0-47.0); Hemoglobin 12.2 g/dL (12.2-16.2); Immature Granulocytes # 0.04 10^3uL; Immature Granulocytes % 0.3 %; Lymphocytes # 0.9 K/mm3 (0.7-4.5); Lymphocytes % 7.9 % (10-50); Mean Corpuscular HGB Conc 32.4 g/dL (31.8-35.4); Mean Corpuscular Volume 95.7 fl (81-99); Mean Platelet Volume 10.6 fl (7.4-10.4); Monocytes # 0.5 K/mm3 (0.1-1.0); Monocytes % 4.1 % (1.7-9.3); Neutrophils # 10.1 K/mm3 (1.8-7.8); Neutrophils % 87.1 % (37.0-80.0); Nucleated Red Blood Cells # 0 10^3/uL; Nucleated Red Blood Cells % 0 %; Platelet Count 228 K/mm3 (142-424); Red Blood Count 3.93 M/mm3 (4.20-5.40); Red Cell Distribution Width 13.2 % (11.5-17.5); White Blood Count 11.6 K/mm3 (4.8-10.8)
[2025-02-18 18:55] LABS: Procalcitonin 0.063 ng/mL (0.0-2.0)
[2025-02-18 19:09] VITALS: BP 138/78; PULSE 74; RESP 16; TEMP 36.6; O2SAT 98
== END 2025-02-18 19:10 | disposition home or self-care (01) ==
PROVIDERS: Physician Assistant; Emergency Provider Emergency Medicine; PCP Family Medicine
DX: R10.31 Right lower quadrant pain (principal); M25.551 Pain in right hip; R31.9 Hematuria, unspecified; R11.2 Nausea with vomiting, unspecified
CPT/HCPCS: 36415; 80053; 81001; 83735; 84145; 85025; 86140; 87086; 96361; 96374; 96375; 99284; J0131; J1885; J2405; J7030

== ENCOUNTER 2025-03-01 12:37 | Outpatient (CLI) | payer MEDICARE, SELFPAY ==
--- OUTSIDE RECORDS SUMMARY | 2024-10-21 06:45 | XMS_ITS ---
Author Organization [facility] Address [address] [facility] [address] [place] [id number] Care Team Providers Care Reservationist Name Role Phone Rajeev Davis Unavailable [phone] Allergies Allergen (clinical drug ingredient) Drug/Non Drug Allergy documented on EMR Reaction Allergy Type Onset Date Status Penicillin anaphylaxis Drug Allergy Acti ve Results Component Value Reference Range Notes CBC Venipuncture (in house) Reviewed date:10/23/2024 12:38:26 PM Interpretation:Normal Performing Lab: Notes/Report: Normal wbc 8.2 3.5 - 10 lymph 19.5% 15 - 50 mid 5.3% 2 - 15 gran 75.2% 35 - 80 rbc 4.25 3.5 - 5.5 hgb 13.1 11.5 - 16.5 hct 38.6 35 - 55 mcv 90.6 75 - 100 mch 30.7 25 - 35 mchc 33.9 31 - 38 platlet 260 100 - 400 P-Vitamin B12 Reviewed date:10/28/2024 12:59:54 PM Interpretation:Normal Performing Lab: Notes/Report: Test performed by [employer] [facility] [address] , [address], [place] [address] Mike Del Valle MD, Market Development Manager CLIA: [id number] Vitamin B12 197 174-4575 pg/mL P-Comprehensive Metabolic Pa zeke (CMP) Reviewed date:10/28/2024 12:59:54 PM Interpretation:CO2 21, Glu 102 Performing Lab: Notes/Report: Test performed by [employer] [address] [place], [place] [address] , [address], [place] [address] Mike Del Valle MD, Market Development Manager CLIA: [id number] Sodium 143 135-145 mmol/L Potassium 4.3 3.5-5.3 mmol/L Chloride 108 97-108 mmol/L CO2 21 22-32 mmol/L Glucose 102 65-99 mg/dL BUN 14 8-23 mg/dL Creatinine 0.77 0.50-1.00 mg/dL Calcium 9.3 8.6-10.4 mg/dL eGFR by Creatinine 80 >59 mL/min/1.73m2 Protein 6.9 6.0-8.3 g/dL Albumin 4.4 3.5-5.3 g/dL Alkaline Phosphatase 80 35-121 IU/L ALT (SGPT) 14 <5-47 IU/L AST (SGOT) 19 <5-40 IU/L Bilirubin, Total 1.0 <0.2-1.2 mg/dL A/G Ratio 1.8 1.1-2.5 P-TSH reflex to FT4 Reviewed date:10/28/2024 12:59:54 PM Interpretation:Normal Performing Lab: Notes/Report: Test performed by [facility] [address] [place] [address] , [address], [place] [address] Mike Del Valle MD, Market Development Manager CLIA: [id number] TSH reflex to FT4 0.79 0.43-5.25 mU/L P-Vitamin D 25-Hydroxy Reviewed date:10/28/2024 12:59:54 PM Interpretation:22.2 Performing Lab: Notes/Report: Test performed by [facility] [address] [place] [address] , [address], [place] [address] Mike Del Valle MD, Market Development Manager CLIA: [id number] Vitamin D 25-Hydroxy 22.2 30.0-100.0 ng/mL Interpretation of Vitamin D 25 OH: < 20 ng/mL - Deficiency 20 - 29 ng/mL - Insufficiency 30 - 100 ng/mL - Sufficiency > 100 ng/mL - Super-therapeutic- toxicity may occur above this level. Clinical correlation required. Reason For Referral Diagnosis 1 Memory loss (R41.3) Referral Organization [facility] Referring Provider First Name Rajeev Referring Provider Last Name Susan Referring Provider Speciality Family Pra ctice Referred Provider Yuliet Pino Referred Provider Specialty Neurology General Notes Mylene Joiner 11:59:56 AM > faxed to [facility] Neurology, Mylene Joiner 10/27/2024 9:12:00 AM > confirmed received with Jaimee at Dr. Pino's office Referral Priority Routine REASON FOR VISIT discuss colonoscopy and possible dementia Immunizations Vaccine Route Administration Date Status Comme nts Fluzone High Dose (65yr and older) IM Intramuscular 10/21/2024 Administered Social History Tobacco Use: Social History Observation Description Date Details (start date - stop date) Current Smoker NA - NA CURRENT TOBACCO USE: Question Answer Notes Are you a: current smoker 1/2 ppd Problems Problem Type SNOMED Code ICD Code Onset Dates Problem Status W/U Status Risk Notes Problem 20547927 Memory loss (R41.3) Active confirmed Problem 33139104 Vitamin D deficiency (E55.9) Active confirmed Vital Signs Blood pressure systolic 102 mm Hg 10/21/19 25 Blood pressure diastolic 68 mm Hg 025 Heart Rate 86 /min 10/21/2024 Height 64 in 10/21/2024 Weight 108.8 lbs 10/21/2024 BMI 18.67 kg/m2 10/21/2024 Encounters Encounter Location Date Provider Diagnosis [facility] [address] [place], [place] [id number] 10/21/2024 Rajeev Davis Memory loss R41.3 ; Vitamin D deficiency E55.9 ; Colon cancer screening Z12.11 and Encounter for immunization Z23 Assessments Encounter Date Diagnosis (ICD Code) Assessment Notes Treatment Notes Treatment Clinical Notes Section Notes 10/21/2024 Memory loss (ICD-10 - R41.3) 10/21/2024 Vitamin D deficiency (ICD-10 - E55.9) 10/21/2024 Colon cancer screening (ICD-10 - Z12.11) 10/21/2024 Encounter for immunization (ICD-10 - Z23) Plan Of Treatment Pending Test Test Name Order Date colonoscopy 10/21/2024 Referrals Referral Date Details 10/21/2024 10/21/2024, Yuliet nye Next Appt Details Follow Up: via phone to repo rt test results, Reason: Progress Notes * RAMONITA MAIOB:1950 ([age] yo F)Acc No.[id number]:10/21/2024 Progress Notes Patient: RICHIE JOSE Provider: Cali Davis M.D. :1950 A ge:74 Y S ex:Female Date:10/21/2024 Address:[address] [place] [address] Hanna PEÑALOZA [id number] Subjective: * Chief Complaints: * 1 . Discuss colonoscopy and possible dementia. * HPI: N eurology: 74 year old female presents with c/o memory loss P t's complains of issues with remembering things. Pt states she has noticed it worsening over the last 6 months or so. Pt states she will walk in to a room and forget why she went in there, pt has a hard time remembering where she sets things down . * ROS: D ERMATOLOGY: no R yoan. n o H conor. G ASTROENTEROLOGY: no N ausea. n o V omiting. n o D iarrhea.? U ROLOGY: no D ifficulty urinating. n o B lood in urine. * Medical History: 3 0 pack year smoking history as of 2021. * Surgical History: C olonoscopy , Bilateral Cataract Removal . * Family History: N o Family History documented.. * Social History: C URRENT TOBACCO USE: Yes A re you a: c urrent smoker 1/2 ppd. C affeine: no. Alcohol: no. * Medications: N one * Allergies: P enicillin: anaphylaxis - Allergy. Objective: * Vitals: W t:108.8, Temp:97.8, BP:102/68, HR:86, Nurse:miroslava, Ht: 64, BMI:18.67. * Examination: G eneral Examination: General Appearance: N AD, pleasant. HEENT: u nremarkable. Heart: R SR. Lungs: c lear to auscultation. Neurologic Exam: A lert, oriented to person, not place or time, gait normal. Peripheral pulses: n ormal (2+) bilaterally. Extremities: n o leg edema. Assessment: * Assessment: 1. M delphine loss - R41.3 (Primary) 2 . V itamin D deficiency - E55.9 ? 3 . C olon cancer screening - Z12.11 4 . E ncounter for immunization - Z23 Plan: * Treatment: Value Reference Range V itamin B12 474 361-7656 - pg/mL * Rosario Lockhart 10/23/2024 12:37 :56 PM >See phone encounter ?LAB: P-Comprehensive Metabolic Panel (CMP) (Collection Date & Time - 10/21/2024 10:48 AM)?CO2 21, Glu 102* Value Reference Range A /G Ratio 1.8 1.1-2.5 - * A lbumin 4.4 3.5-5.3 - g/dL * A lkaline Phosphatase 80 35-121 - IU/L * A LT (SGPT) 14 <5-47 - IU/L * A ST (SGOT) 19 <5-40 - IU/L * B ilirubin, Total 1.0 <0.2-1.2 - mg/dL * B UN 14 8-23 - mg/dL * C alcium 9.3 8.6-10.4 - mg/dL * C hloride 108 97-108 - mmol/L * C O2 21 L 22-32 - mmol/L * C reatinine 0.77 0.50-1.00 - mg/dL * G lucose 102 H 65-99 - mg/dL * P otassium 4.3 3.5-5.3 - mmol/L * S odium 143 135-145 - mmol/L * P rotein 6.9 6.0-8.3 - g/dL * e GFR by Creatinine 80 >59 - mL/min/1.73m2 * Rosario Lockhart 10/23/2024 12:37 :56 PM >See phone encounter ?LAB: P-TSH reflex to FT4 (Collection Date & Time - 10/21/2024 10:48 AM)? Normal* Value Reference Range T SH reflex to FT4 0.79 0.43-5.25 - mU/L * Rosario Lockhart 10/23/2024 12:37 :56 PM >See phone encounter ?LAB: CBC Venipuncture (in house) (Collection Date & Time - 10/21/2024)? Normal* Value Reference Range w bc 8.2 3.5 - 10 * l ymph 19.5% 15 - 50 * m id 5.3% 2 - 15 * g ran 75.2% 35 - 80 * r bc 4.25 3.5 - 5.5 * h gb 13.1 11.5 - 16.5 * h ct 38.6 35 - 55 * m cv 90.6 75 - 100 * m ch 30.7 25 - 35 * m chc 33.9 31 - 38 * p latlet 260 100 - 400 * FannyLigia L 10/21/2024 12:4 9:18 PM > Rosario Lockhart 10/23/2024 12:37:56 PM >See phone encounter ? Referral To:Yuliet Pino??Neurology ?Reason: 2.?Vitamin D deficiency?LAB: P-Vitamin D 25-Hydroxy (Collection Date & Time - 10/21/2024 10:48 AM)? 22.2* Value Reference Range V itamin D 25-Hydroxy 22.2 L 30.0-100.0 - ng/mL * Rosario Lockhart 10/23/2024 12:37 :56 PM >See phone encounter 3.?Colon cancer screening?Imaging: colonoscopy* Mylene Joiner 10/22/2024 8:57:5 4 AM > faxed to Dr. Griffith office * Immunizations: Fluzone High Dose (65yr and older) : 0.5 mL (Route: Intramuscular) given by Roxana Martini on Left Deltoid (Encounter for immunization) * Procedure Codes: G 2211 Complex e/[place], [address] CBC WITH AUTO DIFF, 3074F SYST BP LT 130 MM HG, 3078F DIAST BP < 80 MM HG * Follow Up: v ia phone to report test results * Billing Information: * Visit Code: 81061 Office Visit, Est Pt., Level 4. * Procedure Codes: G2211 Complex e/[place]. [address] CBC WITH AUTO DIFF. 3074F SYST BP LT 130 MM HG. 3078F DIAST BP < 80 MM HG. * Electronic signature of Susie Davis MD on 03/01/2025 at 12:41 PM EDT Sign off status: Pending * Provider: Cali Davis M.D. Date: 0 10/21/2024 Generated for Fercho murphy/Jenae/eTransmitting on: 0 03/01/2025 12:41 PM EDT History and Physical Notes * HPI (History of Present Illness) Category Sub-Category Detail Notes Category Not es Neurology memory loss Pt's complains o f issues with remembering things. Pt states she has noticed it worsening over the last 6 months or so. Pt states she will walk in to a room and forget why she went in there, pt has a hard time remembering where she sets things down Examination Category Sub-Category Detail Notes Category Not es General Examination HEENT: unremarkable Heart: RSR Lungs: clear to auscultatio n Extremities: no leg edema General Appearance: NAD, pleasant Neurologic Exam: Alert, oriented to p erson, not place or time, gait normal Peripheral pulses: normal (2+) bilatera lly Consultation Request Notes Referral Date Referring Provider Referred Provider Not es 10/21/2024 Rajeev Davis Maria
--- OUTSIDE RECORDS SUMMARY | 2025-02-22 05:30 | XMS_ITS ---
[facility] [address] [facility] [address] [place] [id number] Care Team Providers Care Grooming Assistant Name Role Phone Rajeev Davis Unavailable [phone] Allergies Allergen (clinical drug ingredient) Drug/Non Drug [...] E. Coli REASON FOR VISIT F/U ER [facility] Medications Medication SIG (Take, Route, Frequency, Duration) Notes Start Date End Date Status Maximum D3 325 MCG (54999 UT) 1 cap(s) Orally once daily on [...] [address] [place] [id number] 02/22/2025 Rajeev Davis Right flank pain R10 [...] * RAMONITA MAIOB:1950 ([age] yo F)Acc No.[id number]:02/22/2025 Progress Notes Patient: RICHIE JOSE Provider: Cali Davis M.D. :1950 A ge:74 Y S ex:Female Date:02/22/2025 Address:[address] [place] [address] [id number] Subjective: * Chief Complaints: * 1 . F/U ER [facility]. * HPI: H PI: 74 year old female presents with c/o Here for follow up on:?02/18/2025 [facility] ER visit. Pt went to er [...] Medications: T aking Maximum D3 325 MCG (20752 UT) Capsule 1 cap(s) Orally once daily [...] G 2211 Complex e/[place], [address] Urinalysis, no micro * Follow Up: v ia phone to report progress * Billing Information: * Visit Code: 77502 Office Visit, Est Pt., Level 3. * Procedure Codes: G2211 Complex e/[place]. [address] Urinalysis, no micro. * Electronic signature of Susie Davis MD on 03/01/2025 at 12:40 PM EDT Sign off status: Pending * Provider: Cali Davis M.D. Date: 0 02/22/2025 Generated for Fercho murphy/Jenae/eTransmitting on: 0 03/01/2025 12:40 PM EDT History and Physical Notes * HPI (History of Present Illness) Category Sub-Category Detail Notes Category Not es HPI Here for follow up on: 5 [facility] ER visit. Pt went to er [...]
--- OUTSIDE RECORDS SUMMARY | 2025-02-23 06:57 | XMS_ITS ---
Author Organization [facility] Address [address] [facility] [address] [place] [id number] Care Team Providers Care Courier Name Role Phone Susan Rajeev Unavailable [phone] REASON FOR VISIT due for screening Encounters Encounter Location Date Provider Diagnosis [facility] [address] [place] [id number] 02/23/2025 Rajeev Davis Screening for osteoporosis Z13.820 Assessments Encounter Date Diagnosis (ICD Code) Assessment Notes Treatment Notes Treatment Clinical Notes Section Notes 02/23/2025 Screening for osteoporosis (ICD-10 - Z13.820) Plan Of Treatment Pending Test Test Name Order Date Bone density 02/23/2025 Progress Notes * SERGEI WILSONSARAOB:1950 ([age] yo F)Acc No.[id number]:02/23/2025 Patient: RIHCIE JOSE :1950 A ge:74 Y S ex:Female Address:[address] [place] [address] [facility] [place] [address] Subjective: * Chief Complaints: * D ue for screening * Medical History: * Surgical History: * Hospitalization/Major Diagno stic Procedure: * Medications: Objective: * Vitals: * Physical Examination: Assessment: * Assessment: 1. S creening for osteoporosis - Z13.820 (Primary) Plan: * Treatment: * Procedure Codes: * true * Date: Generated for Printi ng/Faxing/eTransmitting on: 0 03/01/2025 12:40 PM EDT
--- OUTSIDE RECORDS SUMMARY | 2025-03-01 12:40 | XMS_ITS | Data Portability ---
Author Organization [place] KASI AcharyaS [facility] Address [address] [facility] [address] [place] [address] Care Team Providers Care Digital Marketing Project Manager Name Role Phone JACQUIE SHELTON Primary Care Provider Assessment Encounter Date Assessment Date Assessment LastModified by Organization Details LastModified Time 05/18/2022 05/18/2022 Patient presented to office today for their Medicare Annual Wellness Visit. Wellness visit Questionnaire was reviewed. Depression screening was negative and no followup plan is needed. Emphasized preventive health measures including fall prevention to help reduce health risks and promote healthy living. [email or web address] Not available 05/18/2022 10:14:04 11/22/2022 11/22/2022 f/u in 1 yr FSE [email or web address] Not availab le 11/21/2022 13:47:11 11/25/2023 11/25/2023 f/u in 1 yr FSE [email or web address] Not availab le 11/25/2023 07:03:08 Plan of Treatment Reminders Order Date Submit Date Provider Last Modified By Organization Details Last Modified Time Details Appointments RECHECK 2024 10:15A M MARY JO ROSS MD Not available Not available Not available Lab glycohe moglobi n, total, blood 2024 025 [facility], [address] [place] [address], [address], 01/26/2025 15:46:52 lipid panel, serum 2024 025 [facility], [address] [place] [address], [address], 01/26/2025 16:35:12 hemoglo bin A1C, fingers tick 2021 022 [email or web address] [facility], [address] [place] [address], [address], 05/18/2022 10:50:06 lipid panel, serum [email or web address] [facility], [address] [place] [address], [address], 05/25/2022 08:10:06 CMP, serum or plasma [email or web address] [facility] [address] [facility], [address] [place] [address], [address], 05/25/2022 08:10:07 glycohe moglobi n, total, blood 2021 022 [facility], [address] [place] [address], [address], 10/06/2021 12:37:21 lipid panel, serum 2021 022 [email or web address] [facility], [address] [place] [address], [address], 10/06/2021 11:13:35 CMP, serum or plasma 2021 022 [facility], [address] [place] [address], [address], 10/06/2021 13:09:21 Referral None recorde d. Procedures None recorde d. Surgeries None recorde d. Imaging US, doppler echocar diogram , w/ color flow 2024 025 [email or web address] [facility], [address] [place] [address] , [place], [address], 02/03/2025 11:47:28 MAMMO, screeni ng, tomosyn thesis, bilater al, w/ CAD 2021 022 [email or web address] [facility], [address] [place], [address], 10/24/2021 07:57:15 Medication Orders doxycyc line hyclate 100 mg capsule 2023 024 [facility], [address], [address], 01/26/2025 10:21:43 Patient TargetsNo targets recorded. Patient Instructions Encounter Date Encounter Id Patient Instructions Last Modified By Organization Details Last Modified Time 10/06/2021 [id number] Lung Cancer Screen Decision Aid [email or web address] Not available 10/06/2021 10:48:21 lung cancer screening eligibility assessment* [email or web address] Not available 10/06/2021 10:48:22 Quitting Tobacco: Care Instructions [email or web address] Not available 10/06/2021 10:51:50 05/18/2022 [id number] advance care planning: care instructions [email or web address] Not available 05/21/2022 17:53:52 11/22/2022 [id number] If any lesions change, or if any other new or symptomatic lesions occur, patient understands to return to the clinic for further evaluation Discussed sun precautions; SPF 30+ [email or web address] Not available 11/21/2022 13:47:11 11/25/2023 [id number] If any lesions change, or if any other new or symptomatic lesions occur, patient understands to return to the clinic for further evaluation Discussed sun precautions; SPF 30+ Not available 11/25/2023 07:03:08 01/26/2025 [id number] [facility] Patient Instructions [email or web address] Not available 01/26/2025 11:11:11 Reason for Referral None Reported. Results Created Date Observation Date Name Description Value Unit Range Abnormal Flag Note LastModifiedBy Organization Detail LastModifiedTime 10/06/1910/06/2021 GLYCO HEMOG LOBIN A1C glyco HGB A1C 5.9 % 0.0-5. 6 high Not Available [facility] [address] [place], [address], 10/06/2021 12:37:21 10/06/19 22 10/06/2021 GLYCO HEMOG LOBIN A1C estimated avg. glucose 123 mg/dL _(janneth c) normal A1c value s betwe en 5.7% to 6.4% indic ate predi abete s. Resul ts 6.5% or great er is diagn ostic of diabe miya. Ameri can Diabe miya Assoc iatio n (diab etes. org) Not Available [facility] [address] [place] [address], [address], 10/06/2021 12:37:21 10/06/19 22 10/06/2021 COMP. METAB OLIC PANEL glucose 100 mg/dL 74-100 normal Not Available [facility] [address] [place] [address], [address], 10/06/2021 13:09:20 10/06/19 22 10/06/2021 COMP. METAB OLIC PANEL blood urea nitrogen 17 mg/dL 6-20 normal Not Available [facility] [address] [place] [address], [address], 10/06/2021 13:09:20 10/06/19 22 10/06/2021 COMP. METAB OLIC PANEL creatinine 0.64 mg/dL 0.50-0 .95 normal Not Available [facility] [address] [place] [address], [address], 10/06/2021 13:09:20 10/06/19 22 10/06/2021 COMP. METAB OLIC PANEL BUN/creatini ne ratio 27 (calc ) 10-20 high Not Available [facility] [address] [place] [address], [address], 10/06/2021 13:09:20 10/06/19 22 10/06/2021 COMP. METAB OLIC PANEL sodium 141 mmol/ L 136-14 5 normal Not Available [facility] [address] [place] [address], [address], 10/06/2021 13:09:20 10/06/19 22 10/06/2021 COMP. METAB OLIC PANEL potassium 4.4 mmol/ L 3.4-5. 0 normal Not Available [facility] [address] [place] [address], [address], 10/06/2021 13:09:20 10/06/19 22 10/06/2021 COMP. METAB OLIC PANEL chloride 105 mmol/ L 98-107 normal Not Available [facility] [address] [place] [address], [address], 10/06/2021 13:09:20 10/06/19 22 10/06/2021 COMP. METAB OLIC PANEL carbon dioxide 25 mmol/ L 22-31 normal Not Available [facility] [address] [place] [address], [address], 10/06/2021 13:09:20 10/06/19 22 10/06/2021 COMP. METAB OLIC PANEL anion gap 11 (calc ) 7-25 normal Not Available [facility] [address] [place] [address], [address], 10/06/2021 13:09:20 10/06/19 22 10/06/2021 COMP. METAB OLIC PANEL calcium 9.7 mg/dL 8.6-10 .2 normal Not Available [facility] [address] [place] [address], [address], 10/06/2021 13:09:20 10/06/19 22 10/06/2021 COMP. METAB OLIC PANEL total protein 6.8 g/dL 6.4-8. 3 normal Not Available [facility] [address] [place] [address], [address], 10/06/2021 13:09:20 10/06/19 22 10/06/2021 COMP. METAB OLIC PANEL albumin 4.4 g/dL 3.5-5. 2 normal Not Available [facility] [address] [place] [address], [address], 10/06/2021 13:09:20 10/06/19 22 10/06/2021 COMP. METAB OLIC PANEL globulin 2.4 g/dL_ (calc ) 1.5-4. 5 normal Not Available [facility] [address] [place] [address], [address], 10/06/2021 13:09:20 10/06/19 22 10/06/2021 COMP. METAB OLIC PANEL albumin/glob ulin ratio 1.8 (calc ) 1.1-2. 5 normal Not Available [facility] [address] [place] [address], [address], 10/06/2021 13:09:20 10/06/19 22 10/06/2021 COMP. METAB OLIC PANEL bilirubin, total 0.7 mg/dL 0.1-1. 2 normal Not Available [facility] [address] [place] [address], [address], 10/06/2021 13:09:20 10/06/19 22 10/06/2021 COMP. METAB OLIC PANEL alkaline phosphatase 96 U/L 30-121 normal Not Available [facility] [address] [place] [address], [address], 10/06/2021 13:09:20 10/06/19 22 10/06/2021 COMP. METAB OLIC PANEL AST 19 U/L 0-32 normal Not Available [facility] [address] [place] [address], [address], 10/06/2021 13:09:20 10/06/19 22 10/06/2021 COMP. METAB OLIC PANEL ALT 13 U/L 0-33 normal Not Available [facility] [address] [place] [address], [address], 10/06/2021 13:09:20 10/06/19 22 10/06/2021 COMP. METAB OLIC PANEL GFR 102 >= 60 normal Not Available [facility] [address] [place] [address], [address], 10/06/2021 13:09:20 10/06/19 22 10/06/2021 COMP. METAB [...] For pedia tric patie nts refer to Natio nal Kidne y Found ation https ://ww w.kid freddy.o rg/pr ofess ional s/KDO QI/gf r_cal culat orPed Not Available [facility] [address] [place] [address], [address], 10/06/2021 13:09:20 10/06/19 22 10/06/2021 lung cance r scree noemi eligi bilit y asses sment * Age 50-80 YES Not Available [facility] [address], [address], 10/06/2021 10:47:04 10/06/19 22 10/06/2021 lung cance r scree noemi eligi bilit y asses sment * Either current smoker or has quit within last 15 years YES Not Available [facility] [address] [place] [address], [address], 10/06/2021 10:47:04 10/06/19 22 10/06/2021 lung cance r scree noemi eligi bilit y asses sment * Average of one pack a day for 20 yrs. (20 pack years) YES Not Available [facility] [place] [address] [place] [address], [address], 10/06/2021 10:47:04 10/06/19 22 10/06/2021 lung cance r scree noemi eligi bilit y asses sment * Displays signs or symptoms of lung cancer NO Not Available [facility] [address] [place] [address], [address], 10/06/2021 10:47:04 10/06/19 22 10/06/2021 lung cance r scree noemi eligi bilit y asses sment * Shared decision making with pt. Risk and benefits of CT lung screen discussed YES Not Available [facility] [address], [address], 10/06/2021 10:47:04 10/06/19 22 10/06/2021 lung cance r scree noemi eligi bilit y asses sment * Smoking cessation counseling provided YES Not Available [facility] [address], [address], 10/06/2021 10:47:04 10/06/19 22 10/06/2021 lung cance r scree noemi eligi bilit y asses sment * Order provided for LDCT YES Not Available [facility] [address], [address], 10/06/2021 10:47:04 05/18/20 22 05/18/2022 hemog lobin A1C, finge rstic k hemoglobin A1C % 5.7 % 4.0 - 5.6 Not Available [facility] [address] [place] [address], [address], 05/18/2022 10:30:25 10/24/19 24 10/24/2023 COMPL ETE BLOOD COUNT white blood cells 9.5 10*3/ uL 3.8-10 .8 normal Not Available [facility] [address] [place] [address], [address], 10/24/2023 15:07:43 10/24/19 24 10/24/2023 COMPL ETE BLOOD COUNT red blood cells 4.35 10*6/ uL 3.80-5 .20 normal Not Available [facility] [address] [place] [address], [address], 10/24/2023 15:07:43 10/24/19 24 10/24/2023 COMPL ETE BLOOD COUNT hemoglobin 13.5 g/dL 12.0-1 6.0 normal Not Available [facility] [address] [place] [address], [address], 10/24/2023 15:07:43 10/24/19 24 10/24/2023 COMPL ETE BLOOD COUNT hematocrit 40.4 % 35.0-4 7.0 normal Not Available [facility] [address] [place] [address], [address], 10/24/2023 15:07:43 10/24/19 24 10/24/2023 COMPL ETE BLOOD COUNT MCV 93 fL 80-100 normal Not Available [facility] [address] [place] [address], [address], 10/24/2023 15:07:43 10/24/19 24 10/24/2023 COMPL ETE BLOOD COUNT MCH 31 pg 26-35 normal Not Available [facility] [address] [place] [address], [address], 10/24/2023 15:07:43 10/24/19 24 10/24/2023 COMPL ETE BLOOD COUNT MCHC 34 g/dL 32-36 normal Not Available [facility] [address] [place] [address], [address], 10/24/2023 15:07:43 10/24/19 24 10/24/2023 COMPL ETE BLOOD COUNT RDW 13.7 % 11.0-1 5.0 normal Not Available [facility] [address] [place] [address], [address], 10/24/2023 15:07:43 10/24/19 24 10/24/2023 COMPL ETE BLOOD COUNT MPV 8.6 fL 6.2-10 .5 normal Not Available [facility] [address] [place] [address], [address], 10/24/2023 15:07:43 10/24/19 24 10/24/2023 COMPL ETE BLOOD COUNT platelet count 282 10*3/ uL 150-40 0 normal Not Available [facility] [address] [place] [address], [address], 10/24/2023 15:07:43 10/24/19 24 10/24/2023 COMPL ETE BLOOD COUNT neutrophil,a bsolute 6.1 10*3/ uL 1.6-8. 4 normal Not Available [facility] [address] [place] [address], [address], 10/24/2023 15:07:43 10/24/19 24 10/24/2023 COMPL ETE BLOOD COUNT lymphocyte,a bsolute 2.7 10*3/ uL 0.4-5. 1 normal Not Available [facility] [address] [place] [address], [address], 10/24/2023 15:07:43 10/24/19 24 10/24/2023 COMPL ETE BLOOD COUNT monocyte,abs olute 0.4 10*3/ uL 0.0-1. 2 normal Not Available [facility] [address] [place] [address], [address], 10/24/2023 15:07:43 10/24/19 24 10/24/2023 COMPL ETE BLOOD COUNT eosinophil,a bsolute 0.1 10*3/ uL 0.0-0. 8 normal Not Available [facility] [address] [place] [address], [address], 10/24/2023 15:07:43 10/24/19 24 10/24/2023 COMPL ETE BLOOD COUNT basophil,abs olute 0.1 10*3/ uL 0.0-0. 3 normal Not Available [facility] [address] [place] [address], [address], 10/24/2023 15:07:43 10/24/19 24 10/24/2023 COMPL ETE BLOOD COUNT % neutrophils 64.2 % 42.0-7 8.0 normal Not Available [facility] [address] [place] [address], [address], 10/24/2023 15:07:43 10/24/19 24 10/24/2023 COMPL ETE BLOOD COUNT % lymphocytes 28.9 % 11.0-4 7.0 normal Not Available [facility] [address] [place] [address], [address], 10/24/2023 15:07:43 10/24/19 24 10/24/2023 COMPL ETE BLOOD COUNT % monocytes 4.7 % 0.0-11 .0 normal Not Available [facility] [address] [place] [address], [address], 10/24/2023 15:07:43 10/24/19 24 10/24/2023 COMPL ETE BLOOD COUNT % eosinophils 1.1 % 0.0-7. 0 normal Not Available [facility] [address] [place] [address], [address], 10/24/2023 15:07:43 10/24/19 24 10/24/2023 COMPL ETE BLOOD COUNT % basophils 1.1 % 0.0-3. 0 normal Not Available [facility] [address] [place] [address], [address], 10/24/2023 15:07:43 10/24/19 24 10/24/2023 COMPL ETE BLOOD COUNT nucleated red cells 0.1 % 0.0-0. 9 normal Not Available [facility] [address] [place] [address], [address], 10/24/2023 15:07:43 10/24/19 24 10/24/2023 COMPL ETE BLOOD COUNT nucleated RBCs, absolute 0.01 10*3/ uL not estab. normal Not Available [facility] [address] [place] [address], [address], 10/24/2023 15:07:43 10/24/19 24 10/24/2023 TSH TSH 0.632 u[IU] /mL 0.270- 4.200 normal Not Available [facility] [address] [place] [address], [address], 10/24/2023 15:28:10 10/24/19 24 10/24/2023 GLYCO HEMOG LOBIN A1C glyco HGB A1C 5.8 % 0.0-5. 6 high Not Available [facility] [address] [place] [address], [address], 10/24/2023 15:34:31 10/24/19 24 10/24/2023 GLYCO HEMOG LOBIN A1C estimated avg. glucose 120 mg/dL _(janneth c) normal A1c value s betwe en 5.7% to 6.4% indic ate predi abete s. Resul ts 6.5% or great er is diagn ostic of diabe miya. Ameri can Diabe miya Assoc iatio n (diab etes. org) Not Available [facility] [address] [place] [address], [address], 10/24/2023 15:34:31 10/24/19 24 10/24/2023 BASIC METAB OLIC PANEL glucose 101 mg/dL 74-100 high Not Available [facility] [address] [place] [address], [address], 10/24/2023 15:35:22 10/24/19 24 10/24/2023 BASIC METAB OLIC PANEL blood urea nitrogen 17 mg/dL 6-20 normal Not Available [facility] [address] [place] [address], [address], 10/24/2023 15:35:22 10/24/19 24 10/24/2023 BASIC METAB OLIC PANEL creatinine 0.74 mg/dL 0.50-0 .95 normal Not Available [facility] [address] [place] [address], [address], 10/24/2023 15:35:22 10/24/19 24 10/24/2023 BASIC METAB OLIC PANEL BUN/creatini ne ratio 23 (calc ) 10-20 high Not Available [facility] [address] [place] [address], [address], 10/24/2023 15:35:22 10/24/19 24 10/24/2023 BASIC METAB OLIC PANEL sodium 142 mmol/ L 136-14 5 normal Not Available [facility] [address] [place] [address], [address], 10/24/2023 15:35:22 10/24/19 24 10/24/2023 BASIC METAB OLIC PANEL potassium 5.0 mmol/ L 3.4-5. 0 normal Not Available [facility] [address] [place] [address], [address], 10/24/2023 15:35:22 10/24/19 24 10/24/2023 BASIC METAB OLIC PANEL chloride 106 mmol/ L 98-107 normal Not Available [facility] [address] [place] [address], [address], 10/24/2023 15:35:22 10/24/19 24 10/24/2023 BASIC METAB OLIC PANEL carbon dioxide 27 mmol/ L 22-31 normal Not Available [facility] [address] [place] [address], [address], 10/24/2023 15:35:22 10/24/19 24 10/24/2023 BASIC METAB OLIC PANEL anion gap 9 (calc ) 7-25 normal Not Available [facility] [address] [place] [address], [address], 10/24/2023 15:35:22 10/24/19 24 10/24/2023 BASIC METAB OLIC PANEL calcium 9.2 mg/dL 8.6-10 .2 normal Not Available [facility] [address] [place] [address], [address], 10/24/2023 15:35:22 10/24/19 24 10/24/2023 BASIC METAB OLIC PANEL GFR 84 >= 60 normal NOT E New calcu latio n for GFR (CKD- EPI 2020) is formu lated witho ut race adjus tment facto rs at the recom menda tion of the Natio nal Kidbeatrice y Found ation and Ameri can Socie ty of Nephr ology . This calcu latio n has not been valid ated in pregn ant women . For pedia tric patie nts refer to https ://kassandra caceres.nina hayes.lacho rg/pr ofess ional s/KDO QI/gf r_cal culat orPed Not Available [facility] [address] [place], [address], 10/24/2023 15:35:22 01/27/20 25 01/26/2025 GLYCO HEMOG LOBIN A1C glyco HGB A1C 5.9 % 0.0-5. 6 high Not Available [facility] [address] [place], [address], 01/26/2025 15:46:52 01/27/20 25 01/26/2025 GLYCO HEMOG LOBIN A1C estimated avg. glucose 123 mg/dL _(janneth c) normal A1c value s betwe en 5.7% to 6.4% indic ate predi abete s. Resul ts 6.5% or great er is diagn ostic of diabe miya. Ameri can Diabe miya Assoc iatio n (diab etes. org) Not Available [facility] [address] [place], [address], 01/26/2025 15:46:52 01/27/20 25 01/26/2025 LIPID PROFI LE HDL cholesterol 70 mg/dL 50-242 normal Not Available [facility] [address] [place], [address], 01/26/2025 16:35:12 01/27/20 25 01/26/2025 LIPID PROFI LE triglyceride s 106 mg/dL 0-149 normal TRIGL YCERI DE RANGE S RIC L: < 150 BORDE RLINE HIGH: 150 - 199 HIGH: 200 - 499 VERY HIGH: > OR = 500 Not Available [facility] [address] [place] [address], [address], 01/26/2025 16:35:12 01/27/20 25 01/26/2025 LIPID PROFI LE cholesterol 221 mg/dL 0-199 high SELVIN STERO L (TOTA L) RANGE S ZAYDA ABLE: < 200 BORDE RLINE : 200 - 239 HIGHE R RISK: > 239 Not Available [facility] [address] [place] [address], [address], 01/26/2025 16:35:12 01/27/20 25 01/26/2025 LIPID PROFI LE LDL cholesterol 130 mg/dL _(janneth c) 0-99 high LDL SELVIN STERO L RANGE S OPTIM AL: < 100 NEAR/ ABOVE OPTIM AL: 100 - 129 BORDE RLINE HIGH: 130 - 159 HIGH: 160 - 189 VERY HIGH: > OR = 190 Not Available [facility] [address] [place] [address], [address], 01/26/2025 16:35:12 01/27/20 25 01/26/2025 LIPID PROFI LE chol/HDL ratio (calc) 3.2 mg/dL normal NO RIC L RANGE ESTAB LISHE D FOR SELVIN STERO L/HDL RATIO (CALC ULATE D). Not Available [facility] [address] [place] [address], [address], 01/26/2025 16:35:12 12/15/19 22 12/14/2021 MAMMO , scree noemi, tomos ynthe sis, bilat eral, w/ CAD [facility] [address] [place] [id number] Anjana estevez Name: ADRIANA estevez : 1949 Age: 71 years Patibrian t Orderi ng Provid er: LEN PAYNERICHARDTeo IROW EXAM DATE: 2021 EXAM: MG SCREEN ING DALLSA MAMMOG JUVENTNIO INDICA TION: Routin e screen ing. PROCED [...] Valle MD on 022 12:59 PM [email or web address] [facility] [address] [place], [address], 05/21/2022 17:50:57 01/28/2001/26/2025 elect julio carlson am No observ ation record ed. BARCODE Not Available 2024 08:22:09 02/27/2002/19/2025 US, doppl er echoc ardio gram, w/ color flow No observ ation record ed. [email or web address] [facility] [address] , [place], [address], 03/01/2025 08:52:12 Result Notes Documentation Provider Name and Address Organization Details Recorded Time Mammo, Screening, Tomosynthesis, Bilateral, W/ Cad : [address] [place] [address] Patient Name: ADRIANA MAI Patient : 1950 Age: 71 years Patient Ordering Provider: LEN LEE EXAM DATE: 12/14/2021 EXAM: MG SCREENING [place] MAMMOGRAM INDICATION: Routine screening. PROCEDURE: Multislice imaging of both breasts was performed in standard projections using [employer] tomosynthesis equipment (3D mammography). 2D images were created from the 3D dataset using C-View software. The study was read with the assistance of Computer Aided Detection (CAD) software. COMPARISON: This was compared with previous mammograms dated 09/20/2020, 07/10/2019, 07/07/2018 FINDINGS: The breasts are heterogeneously dense. This may lower the sensitivity of mammography. There is no suspicious mass or cluster of calcifications. No architectural distortion. IMPRESSION: BI-RADS category 1, Negative. There is no evidence of malignancy. Screening mammograms are recommended in one year. Results were mailed or given to the patient. 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 2015 From [employer];Pro vider: Sonam Saucedo; Status: Active Not Available [employer] 6 09:51:48 Pain of hip region 83280937 Completed 201510/06/2021 From Automate d Load;Pro vider: Sonam Saucedo; Status: Active LEN LEE MD [address] [place] [address], [phone] , [facility] 2 09:55:04 Senile hyperker atosis 588071386 Completed 201401/03/2017 From Automate d Load;Pro vider: Rashmi Flor ;Status: Active NILDA MUNOZ MD [address] [place] [address], [phone] , [facility] 7 12:31:06 Scarring alopecia 541291204 Active 2014 From Automate d Load;Pro vider: Rashmi Flor ;Status: Active Not Available [facility] 6 09:51:48 Hemangio ma 563676532 Active 2014 From Automate d Load;Pro vider: Rashmi Flor ;Status: Active Not Available [facility] 6 09:51:48 Familial combined hyperlip idemia 553265656 Completed 201401/03/2017 From Automate d Load;Pro vider: Nilda Munoz;Sta tus: Active NILDA MUNOZ MD [address] [place] [address], [phone] , [facility] 7 12:31:03 Lack of energy 575985578 Completed 201410/06/2021 From Automate d Load;Pro vider: Nilda Munoz;Sta tus: Active LEN LEE MD [address] [place] [address], [phone] , [facility] 2 09:55:07 Hyperlip idemia 90982259 Active 2016 NILDA MUNOZ MD [address] [place] [address], [address] , [facility] 7 12:31:01 Fatigue 36356426 Active 2016 NILDA MUNOZ MD [address] [place] [address], [phone] , [facility] 7 12:31:11 Epidermo id cyst of skin 234149088 Active 2015 From Automate d Load;Pro vider: Rashmi Flor ;Status: Active Not Available [facility] 7 06:14:48 Lentigo Active 2015 From Automate d Load;Pro vider: Rashmi Flor ;Status: Active Not Available [facility] 7 07:37:58 History of polyp of colon 839972968 Active 2021 LEN LEE MD [address] [place] [address], [phone] , [facility] 2 09:57:01 Notes:: Depression Screening* Date:07/02/2016 Problem Notes None recorded. Procedures Surgical History Date Name Laterality Status Provider Name and Address Organization Details Recorded Time 01/27/20 EKG completed RONIT TIDWELL PA-C [address] [place] [address], [phone], [facility] 01/26/2025 16:32:51 11/25/19 24 Destruction BN Lesions completed RASHMI FLOR DO [address] [place] [address], [phone], [facility] 11/25/2023 12:31:16 10/06/[address] Lung Screening Counseling completed LEN LEE MD [address] [place] [address], [phone], [facility] 10/06/2021 10:46:20 10/05/19 21 Destruction Premalignant Lesion(s) completed Jaelynbrandon Phillips [facility] 10/05/2020 10:04:52 10/05/19 21 Destruction BN [facility]2020 10:03:54 04/18/20 20 laser assisted in situ keratomileusis of bilateral eyes completed Lexie Knott [facility] 01/26/2025 10:25:44 06/16/20 19 Biopsy Skin Lesion; Tangential completed [facility] 06/16/2019 12:00:08 07/05/20 17 Most Recent Mammogram completed [facility] 12/31/2017 10:45:44 08/14/20 16 Most Recent Bone Density completed [facility] 12/31/2017 10:45:35 07/18/20 16 Date of Last Colonoscopy completed [facility] 12/31/2017 10:45:[address] [facility] 01/03/2017 12:03:38 Tonsillectomy completed [facility] 12/25/2018 10:36:31 dental surgical procedure completed Anila Claire [facility] 05/18/2022 10:22:10 Imaging Results None recorded. Procedure Notes None recorded. Medical Equipment None Reported. Allergies Allergen ID Allergen Name Allergen Category Reaction Reaction Severity Criticality Documentation Date Start Date Code Code System Note Provider Name and Address Organization Details Recorded Time 477727 Product containin g penicilli n (product) medicatio n anaphylax is Not available Not available 08/10/20162010 87867 8001 SNOMED React ion: ANAPH YLAXI S; Comme nt: Creat ed By: Huy lopez DecemberHardeep cierra Date: 2010 1:52: 19 PM; Not Available [facility] 08:19:47 165403 ergocalci ferol medicatio n confusion moderate Not available 01/26/20252024 4018 RxNorm Lexie Knott [facility] 10:21:15 Medications Name Sig Start Date Stop [...] Updated DateTime 2 162.56 cm 20.9 kg/m2 67764.2 7 g 68 /min 98 % 98 % 118 mm[Hg] 64 mm[Hg] Etienne Clifton Del Rosario [facility] 2 10:32:13 Date Recorded Body height Body mass index (BMI) Body weight Oxygen saturation Oxygen saturation in Arterial blood by Pulse oximetry Heart rate Systolic blood pressure Diastolic blood pressure Provider Name and Address Organization Details Last Updated DateTime 5 162.56 cm 18.6 kg/m2 04900.1 3 g 96 % 96 % 90 /min 106 mm[Hg] 58 mm[Hg] Lexie Knott [facility] 5 10:28:50 Date Recorded Body height Body mass index (BMI) Body weight Heart rate Oxygen saturation Oxygen saturation in Arterial blood by Pulse oximetry Systolic blood pressure Diastolic blood pressure Provider Name and Address Organization Details Last Updated DateTime 2 162.56 cm 19.1 kg/m2 19943.7 5 g 69 /min 99 % 99 % 104 mm[Hg] 64 mm[Hg] Anila Claire [facility] 2 10:28:37 Social History Question Answer Notes LastModified by Organizat ion Details LastModified Time Tobacco Smoking Status Current Some Day Smoker Estrellita Mcdaniel [facility] 01/03/2017 11:56:33 Do You Have An Advance [...] What Is Your Current Pack Years? 30ormorepac kyears Information not available 01/26/2025 Performs Monthly Self-breast [...] Much Tobacco Do You Smoke? 1 PPW [email or web address] Information not available 05/18/2022 General Stress Level [...] Fibrillation N Kidney Stones N Hyperthyroidism N Depression N COPD N Anxiety Disorder N Obesity N Arthritis N Mental Disorder N Cancer N Stroke N Fibromyalgia N Kidney Disease N MRSA exposure N Tuberculosis N AIDS/HIV N Asthma N Pulmonary Embolism N Chronic Ear Infections N Hypothyroidism N Difficulty Swallowing N Meniere's disease N High Cholesterol N Liver Disease N Parkinson's Disease N Alzheimer's N Anemia N Diabetes N Congestive Heart Failure (CHF) N Diverticulitis N Reflux/GERD N Heart Disease N Hypertension N Osteoporosis N Gynecological History Statement/Question Response Date of Last Colonoscopy 07/18/2016 Most Recent Mammogram 07/05/2017 Most Recent Bone Density 08/14/2016 Obstetrics History GPAL:G 0 P 0 0 0 0 Immunizations Vaccine Type Date Status Note Provider Nam e and Address Organization Details Recorded Time Influenza, high-dose, trivalent, PF 8 completed Not Available [facility] 10/03/2019 02:49:24 pneumococcal polysaccharide PPV23 3 completed NILDA MUNOZ MD [address], [address], [facility] 07/05/2017 07:50:20 Pneumococcal conjugate PCV 13 6 completed NILDA MUNOZ MD [address] [place], [address], [facility] 07/05/2017 07:50:34 zoster live 2 completed NILDA MUNOZ MD [address] [place], [address], [facility] 07/05/2017 07:50:56 Tdap 2 completed NILDA MUNOZ MD [facility] [place], [address], [facility] 07/05/2017 07:51:17 Hep B, unspecified formulation 2 completed NILDA MUNOZ MD [address] [place], [address], [facility] 07/05/2017 07:51:43 Hep B, unspecified formulation 2 completed NILDA MUNOZ MD [address] [place], [address], [facility] 07/05/2017 07:52:00 Hep B, unspecified formulation 2 completed NILDA MUNOZ MD [address] [place], [address], [facility] 07/05/2017 07:52:16 Influenza, high-dose, trivalent, PF 9 completed Not Available [facility] 10/03/2019 02:51:48 Influenza, high-dose, quadrivalent, PF 0 completed Inocencia Rai [facility] 06/08/2020 10:03:49 Influenza, high-dose, quadrivalent, PF 1 completed Radha Anne [facility] 06/28/2021 09:56:23 Influenza, adjuvanted, quadrivalent, PF 2 completed SONAM SAUCEDO APRN [address] [place], [address], [facility] 05/21/2022 17:50:40 Influenza, high-dose, trivalent, PF 7 completed Not Available [facility] 10/03/2019 02:45:19 SARS-COV-2 (COVID-19) vaccine, UNSPECIFIED 1 completed Mitzi Perry [facility] 04/03/2021 10:36:34 SARS-COV-2 (COVID-19) vaccine, UNSPECIFIED 1 completed Mitzi Perry [facility] 04/03/2021 10:36:38 COVID-19, mRNA, LNP-S, PF, 100 mcg/0.5mL dose or 50 mcg/0.25mL dose 1 completed Etienne Clifton Carin [facility] 10/06/2021 10:30:22 Past Encounters Encounter ID Performer Location Encounter Start Date Encounter Closed Date Diagnosis/Indication Diagnosis SNOMED-CT Code Diagnosis ICD10 Code Diagnosis Note [id number] NILDA MUNOZ MD [facility] [address] [place] [address] 01/03/2017 11:00:00 01/03/2017 12:44:40 Hyperlipidemia 08016732 E78.5 Fatigue 33580684 R53.83 [id number] RASHMI FLOR DO [facility] [address] [place] [address] 06/13/2017 11:04:28 06/14/2017 09:25:58 Solar lentigo 19847854 L81.4 Benign, reassureco ntinue sunscreen annual skin exam Senile hyperkeratosis 39 8778164 L82.1 Benign, reassure 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 Benign, reassure [id number] NILDA MUNOZ MD [facility] [address] [place] [address] 07/05/2017 08:24:55 07/05/2017 09:51:34 Body mass index 25-29 - overweight 850475184 Z68.25 Hyperlipidemia 24200429 E78.5 Fatigue 42753133 R53.83 Dysuria 51795422 R30.0 Administra tion of influenza vaccine 00928592 Z23 [id number] NILDA MUNOZ MD [facility] [address] [place], [place] [address] 12/31/2017 10:31:49 12/31/2017 11:06:41 Hyperlipidemia 69183239 E78.5 Fatigue 86229371 R53.83 [id number] RASHMI FLOR DO [facility] [address] [place] [address] 06/16/2018 10:55:45 06/16/2018 13:31:43 Solar lentiginosis 649807391 L81.4 Benign Reassuranc e sunscreen hat Multiple b enign melanocytic nevi 220894450 D22.9 Benign Reassuranc e annual fbse Senile angioma 4443563 I 78.1 Benign Reassuranc e Senile hyperkeratosis 39 7168883 L82.1 Benign Reassuranc e [id number] NILDA [place]UNOZ [place] [address] 07/07/2018 10:21:11 07/07/2018 14:18:46 Administration of influenza vaccine 25782529 Z23 Adult heal th examination 296795342 Z00.00 Hyperlipidemia 69082241 E78.2 Fatigue 57569758 R53.83 Dysuria 55238750 R30.0 Viral screening 34486978 4 Z11.59 Hand pain 03153383 M79.6 41 M79.699 [id number] DAGOBERTO JEFF MD RHEUMATOL OGY [address] [place] [address] 08/05/2018 09:17:52 08/06/2018 07:49:18 Pain of multiple joints 76226379 M25.50 a pleasant 68-year-ol d female seen [...] year or sooner if needed. Could sleep [id number] [facility] CLOS[facility] [address] [place] [address] 12/25/2018 09:55:07 12/25/2018 11:36:43 Upper respiratory infection 93972965 J06.9 Patient likely has a viral upper [...] understand ing and agreement. Low back pain 045214394 M54.5 Resolved. May be attributab le to [...] or ER. She acknowledg es understand ing. [id number] NILDA MUNOZ MD [facility] [place] [address] 02/26/2019 11:49:16 02/26/2019 12:33:42 Hyperlipidemia 10871178 E78.2 Fatigue 28570694 R53.83 [id number] RASHMI FLOR DO [facility] [address] [place] [address] 06/16/2019 11:14:35 06/16/2019 13:03:33 Solar lentigo 51850592 L81.4 Benign Reassuranc e Discussed sun precaution s; SPF 30+; hats Senile hyperkeratosis 39 1842737 L82.1 Benign Reassuranc e Senile angioma 2162773 I 78.1 Benign Reassuranc e Multiple b enign melanocytic nevi 540639211 D22.9 Benign Appearance Neoplasm o f uncertain behavior of skin 70835471 D48.5 left dorsal foot r/o SCC shave biopsy see procedure note wound care instructio ns provided patient consents for procedure and photo monitoring [id number] [place] [address] [place], [place] [address] 07/10/2019 14:11:28 07/10/2019 15:49:04 Adult health examination 857266587 Z00.00 Hyperlipidemia 13167463 E78.2 Fatigue 72075056 R53.83 Administra tion of influenza vaccine 93629011 Z23 [id number] MIRZA HERNANDEZ MD SURGERY SCHEDULE [address] [place] [address] 07/29/2019 08:52:06 07/29/2019 08:58:54 [id number] ABDULKADIR SONI MD FLU VACCINE CLOSED [address] [place] [address] 06/08/2020 10:02:09 06/08/2020 10:06:26 Administration of influenza vaccine 73092228 Z23 [id number] NILDA MUNOZ MD [facility] [address] [place] [address] 09/20/2020 14:43:24 09/20/2020 16:00:10 Adult health examination 467694132 Z00.00 Hyperlipidemia 09788334 E78.2 Fatigue 39811643 R53.83 [id number] RASHMI FLOR DO [facility] [address] [place] [address] 10/05/2020 08:57:01 10/05/2020 11:01:26 Solar lentigo 25082081 L81.4 Benign Reassuranc e Senile hyperkeratosis 39 8253951 L82.1 Benign Reassuranc e Senile angioma 0958404 I 78.1 Benign Reassuranc e Multiple b enign melanocytic nevi 415978858 D22.9 Benign Reassuranc e Patient ad vised about exposure to the sun 920179686 Z71.89 recommende d sun protective clothing and a mineral based sunscreen 30 SPF or higher lotion OTC daily Inflamed s eborrheic keratosis 417255871 L82.[address] per patients request: R inguinal x1 pt tolerated well advised pt what to expect with freezing Skin sensa tion disturbance 19698302 R20.9 ISK Actinic keratosis 366017 007 L57.0 Education then treated with LN; L helix x1 pt tolerated well advised pt what to expect with freezing [id number] NILDA MUNOZ MD [facility] [address] [place], [place] [address] 04/03/2021 09:53:04 04/03/2021 11:28:43 Hyperlipidemia 75859092 E78.2 Fatigue 07110527 R53.83 [id number] CHANTAL PAGE MD [facility] [address] [place] [address] 06/28/2021 09:40:36 06/28/2021 10:08:12 Administration of influenza vaccine 71670544 Z23 [id number] RASHMI FLOR DO [facility] [address] [place] [address] 10/05/2021 09:45:13 10/05/2021 10:41:55 Solar lentigo 80053941 L81.4 Benign Reassuranc e Senile hyperkeratosis 39 3320657 L82.1 Benign Reassuranc e Senile angioma 9784497 I 78.1 Benign Reassuranc e Multiple b enign melanocytic nevi 955092260 D22.9 Benign Reassuranc e Patient ad vised about exposure to the sun 148544605 Z71.89 recommende d sun protective clothing and a mineral based sunscreen 30 SPF or higher lotion OTC daily Fine wrinkles on face 24 4247217 R23.4 samples of hyaluronic serum B5 serum from [employer] [id number] LEN LEE MD [facility] [address] [place] [address] 10/06/2021 09:50:37 10/06/2021 11:50:48 Hyperlipidemia 97140508 E78.2 Uncontroll ed LDL *135 04-03-2021 Reviewed trend, should be on medication but failed Pravastati n 40 mg dose (SE's). Then deferred given weight loss and declined cholestero l levels. LDL trend: 07/07/2018 169 mg/dl (calc)02/14 156 mg/dl (calc)06/17 145 mg/dl (calc)01/2021 142 MG/DL (CALC)03/16 135 mg/dl (calc) Discussed high risk stroke or UT. Should be on a statin for heavy smoking history. Discussed at length; she will not take any cholestero l lowering therapy including Zetia (ezetimide ) or fish oil. No plan to following FLP as would not chart changer Impaired f asting glycemia 755749573 R73.01 Gluc *107 04-03-2021 Viral screening 84158972 4 Z11.59 hepatitis C Ab, screen 07-07-2018 Screening for malignant neoplasm of breast 535334962 Z12.39 Last 09/20/2020 History of polyp of colon 351636464 Z86.010 07/29/19 polyp; repeat 5y Nicotine dependence 5629 4008 Z87.891 F17.210 Discussed, she does not to quit Screening for osteoporosis 118446232 Z13.820 08/14/2016 normal DEXA [id number] SONAM SAUCEDO APRN [facility] [address] [place] [address] 05/18/2022 09:55:20 05/24/2022 12:11:15 Adult health examination 887842835 Z00.00 Hyperglycemia 96822708 R 73.9 Hyperlipidemia 98802721 E78.5 Administra tion of influenza vaccine 45337137 Z23 [id number] RASHMI FLOR DO [facility] [address] [place] [address] 11/22/2022 10:39:01 11/22/2022 12:25:23 Solar lentigo 61107895 L81.4 Benign Reassuranc e recommende d sun protective clothing and a mineral based sunscreen 30 SPF or higher lotion OTC daily Senile hyperkeratosis 39 9382504 L82.1 Benign Reassuranc e Senile angioma 7734792 I 78.1 Benign Reassuranc e Multiple b enign melanocytic nevi 340380440 D22.9 Benign Reassuranc e no change in lesion on left foot [id number] RASHMI FLOR DO [facility] [address] [place] [address] 11/25/2023 11:01:56 11/25/2023 11:57:23 Solar lentigo 67000114 L81.4 Benign Reassuranc e recommende d sun protective clothing and a mineral based sunscreen 30 SPF or higher lotion OTC daily Senile hyperkeratosis 39 6412825 L82.1 Benign Reassuranc e Senile angioma 5679867 I 78.1 Benign Reassuranc e Multiple b enign melanocytic nevi 137869302 D22.9 Benign Reassuranc e no change in lesion on left foot Tick bite 06391328 W57.X XXA removed on left abdomen via tractionNo redness, no sign of infection or EMStart Doxycyclin e for prevention for lyme/other tick born illnesses - two capsules single dose Inflamed s eborrheic keratosis 253876994 L82.[address] per patients request: left inframamma ry x multiple, right inframamma ry x several , lower abdomen x 1 pt tolerated well advised pt what to expect with freezingTr eated with LN per patients request Tenderness of skin 83210 9000 R20.8 ISK, lesions are itchy and bothersome [id number] RONIT TIDWELL PA-C CARDIOLOG Y [address] [address] 01/26/2025 09:54:59 01/26/2025 11:14:43 Hyperlipidemia 61674070 E78.5 Screening for HLD and DM ordered today. Prediabetes 035186756 R7 3.03 Noted 5.7 previously . Screening for HLD and DM ordered today. Right atri al enlargement 2706940763 9106 I51.7 EKG shows NSR. WEST noted.Pt would like further evaluation of heart structure and function. Echo ordered.Chang salazar appointmen t with Dr. Ross in July. 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 [...] Member ID Gomez Member ID Guarantor Name 02/19/2025 1 [place] Adriana Mai [id number] Adriana Mai 02/19/2025 2 [employer] (MEDICARE SUPPLEMENT) Adriana Mai [id number] Adriana Mai 03/01/2025 2 [employer] (MEDICARE SUPPLEMENT) Adriana Mai [id number] Adriana Mai Notes Date Note Type Note Provider Name and Address Organization Details Recorded Time 10/06/2021 text/html 71F prior patien t of Dr Marlo Ferreira [place], following with Dr Munoz for the last 10y after prior PCP retired. Other providers: Dentist. Rashmi Flor DO, Dermatology. Mirza Hernandez MD, Gastroenterology for endoscopy. Dagoberto Jeff MD, Rheumatology seen 2018 for joint issues.Weight loss over the last 3 years LEN LEE MD [address] [place] [address], [address], [facility] 10/06/2021 11:16:13 05/18/2022 text/html Medicare Annual Wellness VisitReported bypatient.Diet and Nutrition:healthy diet Fracture Risk:no history of fractures Physical Activity:exercises on a regular basis; good physical condition Current level of painMild pain: 09/25 to 10/26 Onset:chronic arthritis for past 3 years Alleviated [...] bathroom/shower; good lighting in the home Adriana Mai presents today for wellness exam. She has hyperlipidemia and fatigue. She has hyperglycemia but A1C is good today.Overall, she is doing well. see current medication list. She was followed by rheumatology for arthritis particularly in her hands but not seeing them now. SONAM SAUCEDO APRN [address] [place], [address], [facility] 05/21/2022 17:54:31 11/22/2022 text/html Established [facility] ent Presents for full skin exam. Patient has no lesions of concern. check spots/moles over body Denies any other new or changing lesions. Feels well today. Denies family history of malignant melanoma. RASHMI FLOR DO [address] [place], [address], [facility] 11/22/2022 13:06:49 11/25/2023 text/html Established [facility] ent Presents for full skin exam. Advise to check brown spots under L breast and L side check spots/moles over body Denies any other new or changing lesions. Feels well today. Denies family history of malignant melanoma. RASHMI FLOR DO [address] [place], [address], [facility] 11/25/2023 12:32:48 01/26/2025 text/html Ms. Mai is a ve ry pleasant, 74 y.o. [...] FT4 were all unremarkable.Vitamin D was low. She recently to [facility] for shakiness after starting vitamin D. [...] or tiredness today. RONIT TIDWELL PA-C [address] [place], [address], [facility] 01/26/2025 16:39:55 OBGyn Episode No OBEpisode recorded.
--- OUTSIDE RECORDS SUMMARY | 2025-03-01 12:40 | XMS_ITS | Continuity of Care Document ---
Author Organization [facility], CARDIOLOGY [facility] Address [address] [place] [address] Care Team Providers Care Rewinder Name Role Phone JACQUIE SHELTON Primary Care Provider Assessment No assessment recorded. Plan of Treatment Reminders Order Date Submit Date Provider Last Modified By Organization Details Last Modified Time Details Appointments RECHECK 2024 10:15A M MARY JO ROSS MD Not available Not available Not available Lab glycohem oglobin, total, blood 2024 025 [facility], [address] [place] [address], [phone], 01/26/2025 15:46:52 lipid panel, serum 2024 025 [facility], [address] [place] [address], [phone], 01/26/2025 16:35:12 Referral None recorded . Procedures None recorded . Surgeries None recorded . Imaging US, doppler echocard iogram, w/ color flow 2024 025 [email or web address] [facility], [address] [place] [address] , [place], [address], 02/03/2025 11:47:28 Medication Orders None recorded . Patient TargetsNo targets recorded. Patient Instructions Encounter Date Encounter Id Patient Instructions Last Modified By Organization Details Last Modified Time 01/26/2025 [id number] Heart Station Patient Instructions coldendick Not available 01/26/2025 11:11:11 Reason for Referral None Reported. Results Created Date Observation Date Name Description Value Unit Range Abnormal Flag Note LastModifiedBy Organization Detail LastModifiedTime 01/28/202025 elect julio sanfordgr am No observ ation record ed. BARCODE Not Available 2024 08:22:09 02/27/20 25 02/19/2025 US, doppl er echoc ardio gram, w/ color flow No observ ation record ed. [email or web address] [facility] [address] [place] [address] Dr, [place], [address], 03/01/2025 08:52:12 Result Notes None recorded. 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 Active 2015 From [employer];Pro vider: Sonam Saucedo; Status: Active Not Available [facility] 6 09:51:48 Pain of hip region 67102458 Completed 201510/06/2021 From [employer];Pro vider: Sonam Saucedo; Status: Active LEN LEE MD [address] [place] [address], [address] , [facility] 2 09:55:04 Senile hyperker atosis 081470958 Completed 201401/03/2017 From [employer];Pro vider: Rashmi Flor ;Status: Active NILDA MUNOZ MD [address] [place] [address], [address] , [facility] 7 12:31:06 Scarring alopecia 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 Active 2014 From [employer];Pro vider: Rashmi Flor ;Status: Active Not Available [facility] 6 09:51:48 Hemangio ma 009658808 Active 2014 From [employer];Pro vider: Rashmi Flor ;Status: Active Not Available [facility] 6 09:51:48 Familial combined hyperlip idemia 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 Completed 201401/03/2017 From [employer];Pro vider: Nilda Munoz;Sta tus: Active NILDA MUNOZ MD [address] [place] [address], [address] [place] [address] , [facility] 7 12:31:03 Lack of energy 282180858 Completed 201410/06/2021 From [employer];Pro vider: Nilda Munoz;Sta tus: Active LEN LEE MD [address] [place] [address], [address] [place] [address] , [facility] 2 09:55:07 Hyperlip idemia 64794076 Active 2016 NILDA MUNOZ MD [address] [place] [address], [address] [place] [address] , [facility] 7 12:31:01 Fatigue 57233435 Active 2016 NILDA MUNOZ MD [address] [place] [address], [address] [place] [address] , [facility] 7 12:31:11 Epidermo id cyst of skin 454370316 Active 2015 From [employer];Pro vider: Rashmi Flor ;Status: Active Not Available [facility] 7 06:14:48 Lentigo Active 2015 From [employer] Load;Pro vider: Rashmi Flor ;Status: Active Not Available [facility] 7 07:37:58 History of polyp of colon 855771093 Active 2021 LEN LEE MD [address] [place] [address], [address] , [facility] 2 09:57:01 Notes:: Depression Screening* Date:07/02/2016 Problem Notes None recorded. Procedures Surgical History Date Name Laterality Status Provider Name and Address Organization Details Recorded Time 05/13/20 25 EKG completed RONIT TIDWELL PA-C [address] [place], [address], [facility] 01/26/2025 16:32:51 11/25/19 24 Destruction BN Lesions completed RASHMI FLOR DO [address] [place], [address], [facility] 11/25/2023 12:31:16 10/06/[address] Lung Screening Counseling completed LEN LEE MD [address] [place] [address], [address], [facility] 10/06/2021 10:46:20 10/05/19 21 Destruction Premalignant Lesion(s) completed [facility] 10/05/2020 10:04:52 10/05/19 21 Destruction BN Lesions completed [facility] 10/05/2020 10:03:54 04/18/20 20 laser assisted in situ keratomileusis of bilateral eyes completed Lexie Knott [facility] 01/26/2025 10:25:44 06/16/20 19 Biopsy Skin Lesion; Tangential completed [facility] 06/16/2019 12:00:08 07/05/20 17 Most Recent Mammogram completed [facility] 12/31/2017 10:45:44 08/14/20 16 Most Recent Bone Density completed [facility] 12/31/2017 10:45:35 07/18/20 16 Date of Last Colonoscopy completed [facility] 12/31/2017 10:45:07 Eye Surgery completed [facility] 01/03/2017 12:03:38 Tonsillectomy completed [facility] 12/25/2018 10:36:31 dental surgical procedure completed Anila Claire [facility] 05/18/2022 10:22:10 Imaging Results None recorded. Procedure Notes None recorded. Medical Equipment None Reported. Allergies Allergen ID Allergen Name Allergen Category Reaction Reaction Severity Criticality Documentation Date Start Date Code Code System Note Provider Name and Address Organization Details Recorded Time 692088 Product containin g penicilli n (product) medicatio n anaphylax is Not available Not available 08/10/20162010 22564 8001 SNOMED React ion: ANAPH YLAXI S; Comme nt: Creat ed By: Huy norton Date: 2010 1:52: 19 PM; Not Available [facility] 6 08:19:47 416737 ergocalci ferol medicatio n confusion moderate Not available 01/26/20252024 4018 RxNorm Wiltonvictorina Ivanjen [facility] 10:21:15 Medications Name Sig Start Date [...] Updated DateTime 5 162.56 cm 18.6 kg/m2 67752.1 3 g 96 % 96 % 90 /min 106 mm[Hg] 58 mm[Hg] Lexie Knott [facility] 5 10:28:50 Social History Question Answer Notes LastModified by Organizat ion Details LastModified Time Tobacco Smoking Status Current Some Day [facility] 01/[facility]/2017 11:56:33 Do You Have [...] Much Tobacco Do You Smoke? 1 PPW [email or web address] Information not available 05/18/2022 General Stress Level [...] Hyperthyroidism N Parkinson's Disease N Alzheimer's N COPD N Depression N Hypothyroidism N Anemia N MRSA exposure N Difficulty Swallowing N Diabetes N Anxiety Disorder N Meniere's disease N Obesity N Arthritis N Mental Disorder N Tuberculosis N AIDS/HIV N Congestive Heart Failure (CHF) N Cancer N Diverticulitis N Stroke N Asthma N Reflux/GERD N High Cholesterol [...] high-dose, trivalent, PF 8 completed Not Available [facility] 10/03/2019 02:49:24 pneumococcal polysaccharide PPV23 3 completed NILDA MUNOZ MD [address] [place] [address] [place], [address], [facility] 07/05/2017 07:50:20 Pneumococcal conjugate PCV 13 6 completed NILDA MUNOZ MD [address] [place] [address], [address], [facility] 07/05/2017 07:50:34 zoster live 2 completed NILDA MUNOZ MD [address] [place] [address], [address], [facility] 07/05/2017 07:50:56 Tdap 2 completed NILDA MUNOZ MD [address] [place] [address], [address], [facility] 07/05/2017 07:51:17 Hep B, unspecified formulation 2 completed NILDA MUNOZ MD [address] [place] [address], [address], [facility] 07/05/2017 07:51:43 Hep B, unspecified formulation 2 completed NILDA MUNOZ MD [address] [place] [address], [address], [facility] 07/05/2017 07:52:00 Hep B, unspecified formulation 2 completed NILDA MUNOZ MD [address] [place] [address] [place], [address], [facility] 07/05/2017 07:52:16 Influenza, high-dose, trivalent, PF 9 completed Not Available Critical [facility] hospital 10/03/2019 02:51:48 Influenza, high-dose, quadrivalent, PF 0 completed Inocencia Rai [facility] 06/08/2020 10:03:49 Influenza, high-dose, quadrivalent, PF 1 completed Radha Castañedaood [facility] 06/28/2021 09:56:23 Influenza, adjuvanted, quadrivalent, PF 2 completed SONAM SAUCEDO, TUGBOAT OPERATOR [address] [place], [address], [facility] 05/21/2022 17:50:40 Influenza, high-dose, trivalent, PF 7 completed Not Available [facility] 10/03/2019 02:45:19 SARS-COV-2 (COVID-19) vaccine, UNSPECIFIED 1 completed Mitzi Perry [facility] 04/03/2021 10:36:34 SARS-COV-2 (COVID-19) vaccine, UNSPECIFIED 1 completed Mitzi Perry [facility] 04/03/2021 10:36:38 COVID-19, mRNA, LNP-S, PF, 100 mcg/0.5mL dose or 50 mcg/0.25mL dose 1 completed Etienne Del Rosario [facility] 10/06/2021 10:30:22 Past Encounters Encounter ID Performer Location Encounter Start Date Encounter Closed Date Diagnosis/Indication Diagnosis SNOMED-CT Code Diagnosis ICD10 Code Diagnosis Note [id number] RONIT TIDWELL PA-C CARDIOLOG [address] [place] [address] 01/26/2025 09:54:59 01/26/2025 11:14:43 Hyperlipidemia 21648412 E78.5 Screening for HLD and DM ordered today. Prediabetes 558192584 R7 3.03 Noted 5.7 previously . Screening for HLD and DM ordered today. Right atri al enlargement 1715429784 9106 I51.7 EKG shows NSR. WEST noted.Pt would like further evaluation of heart structure and function. Echo ordered.Chang salazar appointmen t with Dr. Ross in July. 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 [...] Name 01/26/2025 1 [place] Adriana Forbes [id number] Adriana Chow Forbes 01/26/2025 2 [employer] (MEDICARE SUPPLEMENT) Adriana Forbes [id number] Adriana Forbes Notes Date Note Type Note [...] were all unremarkable.Vitam in D was low. She recently to [facility] for shakiness after starting vitamin D. Resolved [...] weakness, or tiredness today. RONIT TIDWELL PA-C [facility] [place], [address], [facility] 01/26/2025 16:39:55 OBGyn Episode No OBEpisode recorded.
--- OUTSIDE RECORDS SUMMARY | 2025-03-01 12:41 | XMS_ITS | Patient Health Record ---
Author Organization [facility] Address [address] [facility] [address] [place] [id number] Care Team Providers Care Finger Cobbler Name Role Phone Rajeev Davis Unavailable [phone] Allergies Allergen (clinical drug ingredient) Drug/Non Drug [...] Interpretation:E. Coli Performing Lab: Notes/Report: E. Coli CBC Venipuncture (in house) Reviewed date:10/23/2024 12:38:26 [...] Interpretation:Normal Performing Lab: Notes/Report: Test performed by [employer] [employer] [address] [place] [address] , [address], [place] [address] Mike Del Valle MD, Addictions Counselor CLIA: [id number] Vitamin B12 212 416-8201 pg/mL P-Comprehensive Metabolic Pa zeke (CMP) Reviewed date:10/28/2024 12:59:54 PM Interpretation:CO2 21, Glu 102 Performing Lab: Notes/Report: Test performed by [facility] [employer] [address] [place] [address] , [address], [place] [address] Mike Del Valle MD, Addictions Counselor CLIA: [id number] Sodium 143 135-145 mmol/L Potassium 4.3 3.5-5.3 [...] Interpretation:Normal Performing Lab: Notes/Report: Test performed by [facility] [employer] [address] [place] [address] , [place] [address] Mike Del Valle MD, Addictions Counselor CLIA: [id number] TSH reflex to FT4 0.79 0.43-5.25 mU/L P-Vitamin D 25-Hydroxy Reviewed date:10/28/2024 12:59:54 PM Interpretation:22.2 Performing Lab: Notes/Report: Test performed by [facility] [address] [place] [address] , [address], [place] [id number] Mike Del Valle MD, Addictions Counselor CLIA: [id number] Vitamin D 25-Hydroxy 22.2 30.0-100.0 ng/mL Interpretation of Vitamin D 25 OH: < 20 ng/mL - Deficiency 20 - 29 ng/mL - Insufficiency 30 - 100 ng/mL - Sufficiency > 100 ng/mL - Super-therapeutic- toxicity may occur above this level. Clinical correlation required. Mammogram Reviewed date:09/23/2024 04:22:28 PM Interpretation:Negative, annual f/u Performing Lab: Notes/Report: Negative, annual f/u result Negative, annual f/u Reason For Referral Diagnosis 1 Memory loss (R41.3) Referral Organization [facility] Referring Provider First Name Rajeev Referring Provider Last Name Susan Referring Provider Speciality Family Pra ctice Referred Provider Yuliet Pion Referred Provider Specialty Neurology General Notes Mylene Joiner 11:59:56 AM > faxed to [facility] Neurology, Mylene Joiner 10/27/2024 9:12:00 AM > confirmed received with Jaimee at Dr. Pino's office Referral Priority Routine Medications Medication SIG (Take, Route, Frequency, Duration) Notes Start Date End Date Status Maximum D3 325 MCG (30624 UT) 1 cap(s) Orally once daily on , W & 10/23/2024 Active Macrobid 100 MG 1 capsule with food Orally every 12 hrs for 5 days 02/22/2025 Active Immunizations Vaccine Route Administration Date Status Comme nts COVID 19 Moderna Unknown 10/26/2020 Administered COVID 19 Moderna Unknown 11/23/2020 Administered COVID 19 Moderna Unknown 07/12/2021 Administered Fluzone High Dose (65yr and older) Unknown 06/08/2020 Administered Fluzone High Dose (65yr and older) Unknown 06/28/2021 Administered Fluzone High Dose (65yr and older) IM Intramuscular 10/21/2024 Administered PNEUMOVAX 23 VACCINE Unknown 08/11/2013 Administered Prevnar (PCV13) Unknown 07/02/2016 Administered Tetanus Tdap-Adacel (over 7yrs) Unknown 01/09/2012 Administered xAdministration of injection Unknown 01/15/2012 Administered xFluzone (6mos and older)-trivalent Unknown 08/11/2013 Administered xFluzone High Dose-private (65yr&older) Unknown 07/02/2016 Administered xFluzone High Dose-private (65yr&older) Unknown 07/05/2017 Administered xFluzone High Dose-private (65yr&older) Unknown 07/08/2018 Administered xFluzone High Dose-private (65yr&older) Unknown 07/10/2019 Administered Social History Tobacco Use: Social History Observation Description Date Details (start date - stop date) Current Smoker NA - NA CURRENT TOBACCO USE: Question Answer Notes Are you a: current smoker 1/2 ppd Problems Problem Type SNOMED Code ICD Code Onset Dates Problem Status W/U Status Risk Notes Problem 97232465 Vitamin D deficiency (E55.9) Active confirmed Problem 50869255 Memory loss (R41.3) Active confirmed Problem 708364808 Abnormal mammogram of left breast (R92.8) Active confirmed Problem 68086261 Cigarette nicotine dependence without complication (F17.210) Active confirmed Vital Signs Heart Rate 88 /min 02/22/2025 Blood pressure diastolic 68 mm Hg 02/22/2025 Height 64 in 02/22/2025 Blood pressure systolic 100 mm Hg 02/22/2025 Weight 111 lbs 02/22/2025 BMI 19.05 kg/m2 02/22/2025 Encounters Encounter Location Date Provider Diagnosis [facility] [address] [place], [place] [id number] 10/21/2024 Rajeev [place] Memory loss R41.3 ; Vitamin D deficiency E55.9 ; Colon cancer screening Z12.11 and Encounter for immunization Z23 [facility] [address] [place], [place] [id number] 02/22/2025 Rajeev [place] Right flank pain R10 .9 and Microscopic hematuria R31.29 [facility] [address] [place], [place] [id number] 10/23/2024 Rajeev [place] [facility] [address] [place], [place] [id number] 11/03/2024 Rajeev [place] [facility] [address] [place], [place] [id number] 02/23/2025 Rajeev [place] Screening for osteoporosis Z13.820 Assessments Encounter Date Diagnosis (ICD Code) Assessment Notes Treatment Notes Treatment Clinical Notes Section Notes 10/21/2024 Vitamin D deficiency (ICD-10 - E55.9) 10/21/2024 Memory loss (ICD-10 - R41.3) 02/22/2025 Right flank pain (ICD-10 - R10.9) 02/22/2025 Microscopic hematuria (ICD-10 - R31.29) 02/23/2025 Screening for osteoporosis (ICD-10 - Z13.820) 10/21/2024 Colon cancer screening (ICD-10 - Z12.11) 10/21/2024 Encounter for immunization (ICD-10 - Z23) Plan Of Treatment Pending Test Test Name Order Date Bone density 02/23/2025 colonoscopy 10/21/2024 H-Lipid Panel 04/24/2023 Insurance Providers Payer Name Payer Address Payer Phone Subscriber Number Group Number Insured Name Patient Relationship to Insured Coverage Start Date Coverage End Date MEDICARE PART B [address] [address] [place] [address] [id number] RICHIE MAI Self - patient is the insured [facility] OPTIONS [address] [place], [place] [address] [phone] [id number] RICHIE MAI Self - patient is the insured Medical (General) History Medical History History ICD Code 30 pack year smoking history as of 2021 Vitamin D deficiency Surgical History Surgery Date(Month/Year) Colonoscopy Bilateral Cataract Removal
== END 2025-03-01 23:59 | disposition home or self-care (01) ==
LOC: RAD 12:38
PROVIDERS: PCP Family Medicine; Visit Provider Specialist
DX: R69 Illness, unspecified (principal)

== ENCOUNTER 2025-03-02 08:55 | Outpatient (CLI) | payer MEDICARE, SELFPAY ==
--- OUTSIDE RECORDS SUMMARY | 2024-10-21 06:45 | XMS_ITS ---
Author Organization [facility] Address [address] [facility] [address] [place] [phone] Care Team Providers Care Principal Examiner Name Role Phone Rajeev Davis Unavailable [phone] Allergies Allergen (clinical drug ingredient) Drug/Non Drug [...] Interpretation:Normal Performing Lab: Notes/Report: Test performed by [employer] [facility] [employer] [place] , [address], [place] [address] Mike Del Valle MD, Staff Counsel CLIA: [id number] Vitamin B12 783 814-3566 pg/mL P-Comprehensive Metabolic Pa zeke (CMP) Reviewed date:10/28/2024 12:59:54 PM Interpretation:CO2 21, Glu 102 Performing Lab: Notes/Report: Test performed by [employer] [address] [place], [place] [address] [place] , [address], [place] [address] Mike Del Valle MD, Staff Counsel CLIA: [id number] Sodium 143 135-145 mmol/L Potassium 4.3 3.5-5.3 [...] Interpretation:Normal Performing Lab: Notes/Report: Test performed by [employer] [address] [place] [address] , [address], [place] [address] Mike Del Valle MD, Staff Counsel CLIA: [id number] TSH reflex to FT4 0.79 0.43-5.25 mU/L P-Vitamin D 25-Hydroxy Reviewed date:10/28/2024 12:59:54 PM Interpretation:22.2 Performing Lab: Notes/Report: Test performed by [employer] [address] [place] [address] , [address], [place] [address] Mike Del Valle MD, Staff Counsel CLIA: [id number] Vitamin D 25-Hydroxy 22.2 30.0-100.0 ng/mL Interpretation [...] 11:59:56 AM > faxed to [facility] Neurology, Mylene Joiner 10/27/2024 9:12:00 [...] Problem Status W/U Status Risk Notes Problem 94218518 Memory loss (R41.3) Active confirmed Problem 78810605 Vitamin D deficiency (E55.9) Active confirmed Vital Signs Blood pressure systolic 102 mm Hg 10/21/19 25 Blood pressure diastolic 68 mm Hg 025 Heart Rate 86 /min 10/21/2024 Height 64 in 10/21/2024 Weight 108.8 lbs 10/21/2024 BMI 18.67 kg/m2 10/21/2024 Encounters Encounter Location Date Provider Diagnosis [facility] [address] [place], [place] [phone] 10/21/2024 Rajeev Davis Memory loss R41.3 ; [...] * RAMONITA MAIOB:1950 ([age] yo F)Acc No.[id number]:10/21/2024 Progress Notes Patient: RICHIE JOSE Provider: Cali Davis M.D. :1950 A ge:74 Y S ex:Female Date:10/21/2024 Address:[address] [place] [address] Hanna PEÑALOZA [id number] Subjective: * Chief Complaints: * 1 . [...] Treatment: Value Reference Range V itamin B12 219 698-7917 - pg/mL * Rosario Lockhart 10/23/2024 12:37 [...] G 2211 Complex e/[place], [address] CBC WITH AUTO DIFF, 3074F SYST BP LT 130 MM HG, 3078F DIAST BP < 80 MM HG * Follow Up: v ia phone to report test results * Billing Information: * Visit Code: 05540 Office Visit, Est Pt., Level 4. * Procedure Codes: G2211 Complex e/[place]. [address] CBC WITH AUTO DIFF. 3074F SYST BP LT 130 MM HG. 3078F DIAST BP < 80 MM HG. * Electronic signature of Susie Davis MD on 03/02/2025 at 08:59 AM EDT Sign off status: Pending * Provider: Cali Davis M.D. Date: 0 10/21/2024 Generated for Fercho murphy/Jenae/eTransmitting on: 0 03/02/2025 08:59 AM EDT History and Physical Notes * [...]
--- OUTSIDE RECORDS SUMMARY | 2025-02-22 05:30 | XMS_ITS ---
Author Organization [facility] Address [address] [facility] [address] [place] [id number] Care Team Providers Care Drop Hammer Mechanic Name Role Phone Rajeev Davis Unavailable [phone] Allergies Allergen (clinical drug ingredient) Drug/Non Drug Allergy documented on EMR Reaction Allergy Type Onset Date Status Penicillin anaphylaxis Drug Allergy Acti ve Results Component Value Reference Range Notes Urinalysis - Inhouse Reviewed date:02/22/2025 12:51:25 PM Interpretation: Performing Lab: Notes/Report: Color/Clarity yellow/clear Leuk Neg Nitrite Neg Urobili 3.2 Protein Trace pH 5.5 Blood 2+ Sp. Gr. 1.015 Ketone Neg Bili Neg Gluc Neg TEN-UTI panel Reviewed date:02/24/2025 10:32:37 AM Interpretation:E. Coli Performing Lab: Notes/Report: E. Coli REASON FOR VISIT F/U ER [facility] Medications Medication SIG (Take, Route, Frequency, Duration) Notes Start Date End Date Status Maximum D3 325 MCG (61691 UT) 1 cap(s) Orally once daily on M, W & F 10/23/2024 Active Macrobid 100 MG 1 capsule with food Orally every 12 hrs for 5 days 02/22/2025 Active Social History Tobacco Use: Social History Observation Description Date Details (start date - stop date) Current Smoker NA - NA CURRENT TOBACCO USE: Question Answer Notes Are you a: current smoker 1/2 ppd Vital Signs Blood pressure systolic 100 mm Hg 02/23/20 25 Blood pressure diastolic 68 mm Hg 025 Heart Rate 88 /min 02/22/2025 Height 64 in 02/22/2025 Weight 111 lbs 02/22/2025 BMI 19.05 kg/m2 02/22/2025 Encounters Encounter Location Date Provider Diagnosis [facility] [address] [place] [id number] 02/22/2025 Rajeev Davis Right flank pain R10 .9 and Microscopic hematuria R31.29 Assessments Encounter Date Diagnosis (ICD Code) Assessment Notes Treatment Notes Treatment Clinical Notes Section Notes 02/22/2025 Right flank pain (ICD-10 - R10.9) 02/22/2025 Microscopic hematuria (ICD-10 - R31.29) Plan Of Treatment Medication Medication Name Sig Start Date Stop Date Notes Macrobid 100 MG 1 capsule with food Orally every 12 hrs for 5 days 02/22/2025 Next Appt Details Follow Up: via phone to repo rt progress, Reason: Progress Notes * RAMONITA MAIOB:1950 ([age] yo F)Acc No.[id number]:02/22/2025 Progress Notes Patient: RICHIE JOSE Provider: Cali Davis M.D. :1950 A ge:74 Y S ex:Female Date:02/22/2025 Address:[address] [place] [address] [id number] Subjective: * Chief Complaints: * 1 . F/U ER [facility]. * HPI: H PI: 74 year old female presents with c/o Here for follow up on:?02/18/2025 [facility] ER visit. Pt went to er for RT lower quadrant pain, nausea and vomiting. Pt did leave against medical advice b ecause her pain improved a nd no dx was made. Pt's states they did say that pt had blood in urine but was not told anything else. Pt's states pt has had off and on rt lower abdominal pain since leaving er and has been taking Tylenol to relieve pain. * ROS: D ERMATOLOGY: no R yoan. n o H conor. G ASTROENTEROLOGY: no N ausea. n o V omiting. U ROLOGY: no D ifficulty urinating. n o B lood in urine. * Medical History: 3 0 pack year smoking history as of 2021, Vitamin D deficiency. * Surgical History: C olonoscopy , Bilateral Cataract Removal . * Hospitalization/Major Diagno stic Procedure: D enies Past Hospitalization. * Family History: N o Family History documented.. * Social History: C URRENT TOBACCO USE: Yes A re you a: c urrent smoker 1/2 ppd. C affeine: no. Alcohol: no. * Medications: T aking Maximum D3 325 MCG (49711 UT) Capsule 1 cap(s) Orally once daily on M, W & , Medication List reviewed and reconciled with the patient * Allergies: P enicillin: anaphylaxis - Allergy. Objective: * Vitals: W t: 111, Temp: 97.8, BP: 100/68, HR: 88, Nurse: miroslava, Ht: 64, BMI:19.05. * Examination: G eneral Examination: General Appearance: N AD. Heart: R SR. Lungs: c lear to auscultation. Abdomen: b owel sounds present, soft and nontender. Back: n o CVA tenderness. Assessment: * Assessment: 1. R ight flank pain - R10.9 (Primary) 2 . M icroscopic hematuria - R31.29? Plan: * Treatment: Value Reference Range C olor/Clarity yellow/clear * L euk Neg * N itrite Neg * U robili 3.2 * P rotein Trace * p H 5.5 * B lood 2+ * S p. Gr. 1.015 * K etone Neg * B angel Neg * G aquiles Neg * Roxana Martini 02/22/2025 10:22:4 6 AM EDT > Provider reviewed results while patient in office. ?LAB: TEN-UTI panel (Collection Date & Time - 02/22/2025)?E. Coli* Rosario Lockhart 02/24/2025 08: 19:12 AM EDT > pt started on Macrobid. Please have pt complete abx and return with any lingering or reoccurring symptoms.Roxana Martini 02/24/2025 10:29:17 AM EDT > Pt informed * Procedure Codes: G 2211 Complex e/[place], [address] Urinalysis, no micro * Follow Up: v ia phone to report progress * Billing Information: * Visit Code: 58276 Office Visit, Est Pt., Level 3. * Procedure Codes: G2211 Complex e/[place]. [address] Urinalysis, no micro. * Electronic signature of Susie Davis MD on 03/02/2025 at 08:59 AM EDT Sign off status: Pending * Provider: Cali Davis M.D. Date: 0 02/22/2025 Generated for Fercho murphy/Jenae/eTransmitting on: 0 03/02/2025 08:59 AM EDT History and Physical Notes * HPI (History of Present Illness) Category Sub-Category Detail Notes Category Not es HPI Here for follow up on: 5 [facility] ER visit. Pt went to er for RT lower quadrant pain, nausea and vomiting. Pt did leave against medical advice because her pain improved and no dx was made. Pt's states they did say that pt had blood in urine but was not told anything else. Pt's states pt has had off and on rt lower abdominal pain since leaving er and has been taking Tylenol to relieve pain Examination Category Sub-Category Detail Notes Category Not es General Examination Heart: RSR Lungs: clear to auscultatio n Abdomen: bowel sounds present , soft and nontender General Appearance: NAD Back: no CVA tenderness
--- OUTSIDE RECORDS SUMMARY | 2025-02-23 06:57 | XMS_ITS ---
Author Organization [facility] Address [address] [facility] [address] [place] [phone] Care Team Providers Care Accounts Receivable Collector Name Role Phone Susan Rajeev Unavailable [phone] REASON FOR VISIT due for screening Encounters Encounter Location Date Provider Diagnosis [facility] [address] [place] [id number] 02/23/2025 Rajeev Davis Screening for osteoporosis Z13.820 Assessments Encounter Date Diagnosis (ICD Code) Assessment Notes Treatment Notes Treatment Clinical Notes Section Notes 02/23/2025 Screening for osteoporosis (ICD-10 - Z13.820) Plan Of Treatment Pending Test Test Name Order Date Bone density 02/23/2025 Progress Notes * SERGEI WILSONSARAOB:1950 ([age] yo F)Acc No.[id number]:02/23/2025 Patient: RICHIE JOSE :1950 A ge:74 Y S ex:Female Address:[address] [place] [address] [place]IGU[place], [place], [address] Subjective: * Chief Complaints: * D ue for screening * Medical History: * Surgical History: * Hospitalization/Major Diagno stic Procedure: * Medications: Objective: * Vitals: * Physical Examination: Assessment: * Assessment: 1. S creening for osteoporosis - Z13.820 (Primary) Plan: * Treatment: * Procedure Codes: * true * Date: Generated for Printi ng/Faxing/eTransmitting on: 0 03/02/2025 08:59 AM EDT
--- OUTSIDE RECORDS SUMMARY | 2025-03-02 08:59 | XMS_ITS | Patient Health Record ---
[facility] Address [address] [facility] [address] [id number] Care Team Providers Care Truck Service Technician Name Role Phone Rajeev Dvais Unavailable [phone] Allergies Allergen (clinical drug ingredient) Drug/Non Drug [...] Interpretation:E. Coli Performing Lab: Notes/Report: E. Coli Mammogram Reviewed date:09/23/2024 04:22:28 PM Interpretation:Negative, annual f/u Performing Lab: Notes/Report: Negative, annual f/u result Negative, annual f/u CBC Venipuncture (in house) Reviewed date:10/23/2024 12:38:26 [...] Interpretation:Normal Performing Lab: Notes/Report: Test performed by [facility] [address] [place] [address] , [address], [place] [address] Mike Del Valle MD, Agriculture Instructor CLIA: [id number] Vitamin B12 769 236-7134 pg/mL P-Comprehensive Metabolic Pa zeke (CMP) Reviewed date:10/28/2024 12:59:54 PM Interpretation:CO2 21, Glu 102 Performing Lab: Notes/Report: Test performed by [facility] [address] [place] [address] , [address], [place] [address] Mike Del Valle MD, Agriculture Instructor CLIA: [id number] Sodium 143 135-145 mmol/L Potassium 4.3 3.5-5.3 [...] Interpretation:Normal Performing Lab: Notes/Report: Test performed by [facility] [address] [place] [address] , [place] [address] Mike Del Valle MD, Agriculture Instructor CLIA: [id number] TSH reflex to FT4 0.79 0.43-5.25 mU/L P-Vitamin D 25-Hydroxy Reviewed date:10/28/2024 12:59:54 PM Interpretation:22.2 Performing Lab: Notes/Report: Test performed by [facility] [address] [place] [address] , [place] [address] Mike Del Valle MD, Agriculture Instructor CLIA: [id number] Vitamin D 25-Hydroxy 22.2 30.0-100.0 ng/mL Interpretation [...] Name Susan Referring Provider Speciality Family Pra wiice Referred Provider Yuliet Pino Referred Provider Specialty Neurology General Notes Mylene Joiner 11:59:56 AM > faxed to [facility] Neurology, Mylene Joiner 10/27/2024 9:12:00 AM > confirmed received with Jaimee at Dr. Pino's office Referral Priority Routine Medications Medication SIG (Take, Route, Frequency, Duration) Notes Start Date End Date Status Maximum D3 325 MCG (44540 UT) 1 cap(s) Orally once daily on , W & 10/23/2024 Active Macrobid 100 MG 1 capsule with food Orally every 12 hrs for 5 days 02/22/2025 Active Immunizations Vaccine Route Administration Date Status Comme nts xFluzone High Dose-private (65yr&older) Unknown 07/02/2016 Administered xFluzone High Dose-private (65yr&older) Unknown 07/05/2017 Administered xFluzone High Dose-private (65yr&older) Unknown 07/08/2018 Administered xFluzone High Dose-private (65yr&older) Unknown 07/10/2019 Administered xFluzone (6mos and older)-trivalent Unknown 08/11/2013 Administered xAdministration of injection Unknown 01/15/2012 Administered Tetanus Tdap-Adacel (over 7yrs) Unknown 01/09/2012 Administered Prevnar (PCV13) Unknown 07/02/2016 Administered PNEUMOVAX 23 VACCINE Unknown 08/11/2013 Administered Fluzone High Dose (65yr and older) Unknown 06/08/2020 Administered Fluzone High Dose (65yr and older) Unknown 06/28/2021 Administered Fluzone High Dose (65yr and older) IM Intramuscular 10/21/2024 Administered COVID 19 Moderna Unknown 10/26/2020 Administered COVID 19 Moderna Unknown 11/23/2020 Administered COVID 19 Moderna Unknown 07/12/2021 Administered Social History Tobacco Use: Social History Observation Description Date Details (start date - stop date) Current Smoker NA - NA CURRENT TOBACCO USE: Question Answer Notes Are you a: current smoker 1/2 ppd Problems Problem Type SNOMED Code ICD Code Onset Dates Problem Status W/U Status Risk Notes Problem 30639457 Vitamin D deficiency (E55.9) Active confirmed Problem 31118945 Memory loss (R41.3) Active confirmed Problem 244362661 Abnormal mammogram of left breast (R92.8) Active confirmed Problem 80778860 Cigarette nicotine dependence without complication (F17.210) Active confirmed Vital Signs Heart Rate 88 /min 02/22/2025 Blood pressure diastolic 68 mm Hg 02/22/2025 Height 64 in 02/22/2025 Blood pressure systolic 100 mm Hg 02/22/2025 Weight 111 lbs 02/22/2025 BMI 19.05 kg/m2 02/22/2025 Encounters Encounter Location Date Provider Diagnosis [facility] [address] [place], [place] [id number] 10/21/2024 Rajeev Bittinger Memory loss R41.3 ; Vitamin D deficiency E55.9 ; Colon cancer screening Z12.11 and Encounter for immunization Z23 [facility] [address] [place], [place] [id number] 02/22/2025 Rajeev Bittinger Right flank pain R10 .9 and Microscopic hematuria R31.29 [facility] [address] [place], [place] [id number] 10/23/2024 Rajeev Bittinger [facility] [address] [place], [place] [id number] 11/03/2024 Rajeev Bittinger [facility] [address] [place], [place] [id number] 02/23/2025 Rajeev Bittinger Screening for osteoporosis Z13.820 Assessments Encounter Date [...] Date MEDICARE PART B [address] [address] [place] [address] [id number] RICHIE MAI Self - patient is the insured [facility] C[employer] OPTIONS [address] [place], [place] [id number] RICHIE MAI Self - patient is the insured Medical (General) History Medical History History ICD Code 30 pack year smoking history as of 2021 Vitamin D deficiency Surgical History Surgery Date(Month/Year) Colonoscopy Bilateral Cataract Removal
--- NOTE | 2025-03-02 09:01 | XR_ITS ---
FINAL REPORT TECHNIQUE: Bone densitometry calculations of the lumbar spine and lateral hips were obtained. CLINICAL HISTORY: SCREENING COMPARISON: None FINDINGS: Using L1-4, the bone mineral density of the spine is 0.903 g/cm2, corresponding to T-score of -1.3. Using the left hip, the bone mineral density of the femoral neck is 0.701 g/cm2, corresponding to a T-score of -2.0. Using the right hip, the bone mineral density of the femoral neck is 0.652 g/cm?, corresponding to a T-score of -1.8. NOTE: T-score: Standard deviation compared with peak bone mass of young adult mean. *Following the recommendations of the International Society of Bone densitometry, classification of hip BMD is based on the lower of two T-scores; total hip or femoral neck. IMPRESSION: Diminished bone mineral density of the lumbar spine and bilateral hips consistent with osteopenia. Reviewed, Interpreted and Dictated by Salazar Vallecillo MD Transcribed by Ana Zamora Authenticated and . [facility]
== END 2025-03-02 23:59 | disposition home or self-care (01) ==
LOC: RAD 08:57
PROVIDERS: PCP Family Medicine; Visit Provider Family Medicine
DX: Z13.820 Encounter for screening for osteoporosis (principal); M81.0 Age-related osteoporosis without current pathological fracture
CPT/HCPCS: 77080; 94762

== ENCOUNTER 2025-03-26 09:45 | Outpatient (CLI) | payer MEDICARE, SELFPAY ==
--- OUTSIDE RECORDS SUMMARY | 2024-10-21 06:45 | XMS_ITS ---
Author Organization [facility] Address [address] [facility] [address] [place] [id number] Care Team Providers Care Data Entry Name Role Phone Rajeev Davis Unavailable [phone] Allergies Allergen (clinical drug ingredient) Drug/Non Drug [...] Interpretation:Normal Performing Lab: Notes/Report: Test performed by [employer] [facility][note 3] [address] [place] , [address], [place] [address] Mike Del Valle MD, Assessment Clinician CLIA: [id number] Vitamin B12 314 192-2160 pg/mL P-Comprehensive Metabolic Pa zeke (CMP) Reviewed date:10/28/2024 12:59:54 PM Interpretation:CO2 21, Glu 102 Performing Lab: Notes/Report: Test performed by [employer] [address] [place], [place] [address] [place] , [address], [place] [address] Mike Del Valle MD, Assessment Clinician CLIA: [id number] Sodium 143 135-145 mmol/L Potassium 4.3 3.5-5.3 [...] Interpretation:Normal Performing Lab: Notes/Report: Test performed by [employer] [address] [place] [address] , [address], [place] [address] Mike Del Valle MD, Assessment Clinician CLIA: [id number] TSH reflex to FT4 0.79 0.43-5.25 mU/L P-Vitamin D 25-Hydroxy Reviewed date:10/28/2024 12:59:54 PM Interpretation:22.2 Performing Lab: Notes/Report: Test performed by [employer] [address] [place] [address] , [address], [place] [address] Mike Del Valle MD, Assessment Clinician CLIA: [id number] Vitamin D 25-Hydroxy 22.2 30.0-100.0 ng/mL Interpretation [...] Provider Specialty Neurology General Notes Mylene Joiner 2/5/20 25 11:59:56 AM > faxed to [facility] Neurology, Mylene Joiner 10/27/2024 9:12:00 AM > [...] Problem Status W/U Status Risk Notes Problem Memory loss (49663169) Memory loss (R41.3) Active confirmed Problem Vitamin D deficiency (43399101) Vitamin D deficiency (E55.9) Active confirmed Vital Signs Weight 108.8 lbs 10/21/2024 Blood pressure systolic 102 mm Hg 10/21/19 25 Blood pressure diastolic 68 mm Hg 025 Heart Rate 86 /min 10/21/2024 Height 64 in 10/21/2024 BMI 18.67 kg/m2 10/21/2024 Encounters Encounter Location Date Provider Diagnosis [facility] [address] [place] [id number] 10/21/2024 Rajeev [place] Memory loss R41.3 ; Vitamin D deficiency [...] * RAMONITA MAIOB:1950 ([age] yo F)Acc No.[id number]:10/21/2024 Progress Notes Patient: RICHIE JOSE Provider: Cali Davis M.D. :1950 A ge:74 Y S ex:Female Date:10/21/2024 Address:[address] [place] [address] Hanna PEÑALOZA [id number] Subjective: * Chief Complaints: * 1 . [...] eneral Examination: General Appearance: N AD, pleasant. H EENT: u nremarkable. H eart: R SR. L ungs: c lear to auscultation. N eurologic Exam: A lert, oriented to person, not place or time, gait normal. P eripheral pulses: n ormal (2+) bilaterally. E xtremities: n o leg edema. Assessment: * Assessment: 1. M delphine loss - R41.3 (Primary) 2 . V itamin D deficiency - E55.9 ? 3 . C olon cancer screening - Z12.11 4 . E ncounter for immunization - Z23 Plan: * Treatment: Value Reference Range V itamin B12 449 192-7255 - pg/mL * Rosario Lockhart 10/23/2024 12:37 [...] p latlet 260 100 - 400 * Ligia Escobedo 10/21/2024 12:4 9:18 PM > Rosario Lockhart [...] 10/22/2024 8:57:5 4 AM > faxed to Shasha Hurtado 03/02/2025 12:12:19 PM EDT >faxed to [facility] Shasha Germain 03/05/2025 12:37:55 PM EDT > scheduled 03/30 * Immunizations: Fluzone High Dose (65yr and older) : 0.5 mL (Route: Intramuscular) given by Roxana Martini on Left Deltoid (Encounter for immunization) * Procedure Codes: G 2211 Complex e/[place], [address] CBC WITH AUTO DIFF, 3074F SYST BP LT 130 MM HG, 3078F DIAST BP < 80 MM HG * Follow Up: v ia phone to report test results * Images: Billing Information: * Visit Code: 62430 Office Visit, Est Pt., Level 4. * Procedure Codes: G2211 Complex e/[place]. [address] CBC WITH AUTO DIFF. 3074F SYST BP LT 130 MM HG. 3078F DIAST BP < 80 MM HG. * Electronic signature of Susie Davis MD on 03/26/2025 at 09:49 AM EDT Sign off status: Pending * Provider: Cali Davis M.D. Date: 0 10/21/2024 Generated for Jesusi jeffrey/Jenae/eTransmitting on: 0 03/26/2025 09:49 AM EDT History and Physical Notes * HPI [...]
--- OUTSIDE RECORDS SUMMARY | 2025-02-22 05:30 | XMS_ITS ---
[facility] [address] [facility] [address] [place] [id number] Care Team Providers Care Ship Rigger Apprentice Name Role Phone Rajeev Davis Unavailable [phone] Allergies Allergen (clinical drug ingredient) Drug/Non Drug [...] E. Coli REASON FOR VISIT F/U ER [facility] Medications Medication SIG (Take, Route, Frequency, Duration) Notes Start Date End Date Status Maximum D3 325 MCG (21560 UT) 1 cap(s) Orally once daily on [...] [address] [place] [id number] 02/22/2025 Rajeev Davis Right flank pain R10 [...] * RAMONITA MAIOB:1950 ([age] yo F)Acc No.[id number]:02/22/2025 Progress Notes Patient: RICHIE JOSE Provider: Cali Davis M.D. :1950 A ge:74 Y S ex:Female Date:02/22/2025 Address:[address] [place] [address] [id number] Subjective: * Chief Complaints: * 1 . F/U ER [facility]. * HPI: H PI: 74 year old female presents with c/o Here for follow up on:?02/18/2025 [facility] ER visit. Pt went to er [...] Medications: T aking Maximum D3 325 MCG (73640 UT) Capsule 1 cap(s) Orally once daily [...] G 2211 Complex e/[place], [address] Urinalysis, no micro * Follow Up: v ia phone to report progress * Images: Billing Information: * Visit Code: 55739 Office Visit, Est Pt., Level 3. * Procedure Codes: G2211 Complex e/[place]. [address] Urinalysis, no micro. * Electronic signature of Susie Davis MD on 03/26/2025 at 09:49 AM EDT Sign off status: Pending * Provider: Cali Davis M.D. Date: 0 02/22/2025 Generated for Jesusi jeffrey/Yandyg/eTransmitting on: 0 03/26/2025 09:49 AM EDT History and Physical Notes * HPI (History of Present Illness) Category Sub-Category Detail Notes Category Not es HPI Here for follow up on: 5 [facility] ER visit. Pt went to er [...]
--- OUTSIDE RECORDS SUMMARY | 2025-02-23 06:57 | XMS_ITS ---
Author Organization [facility] Address [address] [place] [address] [place] [phone] Care Team Providers Care Core Maker Name Role Phone Rajeev Davis Unavailable [phone] Results Component Value Reference Range Notes Bone density Reviewed date:03/03/2025 09:01:07 AM Interpretation:osteopenia Performing Lab: Notes/Report: osteopenia REASON FOR VISIT due for screening Encounters Encounter Location Date Provider Diagnosis [facility] [address] [place] [id number] 02/23/2025 Rajeev Davis Screening for osteoporosis Z13.820 Assessments Encounter Date Diagnosis (ICD Code) Assessment Notes Treatment Notes Treatment Clinical Notes Section Notes 02/23/2025 Screening for osteoporosis (ICD-10 - Z13.820) Plan Of Treatment No Information Progress Notes * SERGEI WILSONSARAOB:1950 ([age] yo F)Acc No.[id number]:02/23/2025 Patient: RICHIE JOSE :1950 A ge:74 Y S ex:Female Address:[address] [place], [place] [address], [address] Subjective: * Chief Complaints: * D ue for screening * Medical History: * Surgical History: * Hospitalization/Major Diagno stic Procedure: * Medications: Objective: * Vitals: * Physical Examination: Assessment: * Assessment: 1. S creening for osteoporosis - Z13.820 (Primary) Plan: * Treatment: * Procedure Codes: * true * Date: Generated for Printi ng/Faxing/eTransmitting on: 0 03/26/2025 09:49 AM EDT
--- OUTSIDE RECORDS SUMMARY | 2025-03-26 09:49 | XMS_ITS | Continuity of Care Document ---
Author Organization [place] [facility]Y [facility] Address [address] [facility] 2ND [place] [address] Care Team Providers Care Patient Accounts Manager Name Role Phone JACQUIE SHELTON Primary Care Provider Assessment No assessment recorded. Plan of Treatment Reminders Order Date Submit Date Provider Last Modified By Organization Details Last Modified Time Details Appointments RECHECK 2024 10:15A M MARY JO ROSS MD Not available Not available Not available Lab glycohem oglobin, total, blood 2024 025 [facility], [address] [place] [address], [phone], 01/26/2025 15:46:52 lipid panel, serum 2024 025 [facility], [address] [place] [address], [phone], 01/26/2025 16:35:12 Referral None recorded . Procedures None recorded . Surgeries None recorded . Imaging US, doppler echocard iogram, w/ color flow 2024 025 [email or web address] [facility], [address] [facility] , [place], [address], 02/03/2025 11:47:28 Medication Orders None recorded . Patient TargetsNo targets recorded. Patient Instructions Encounter Date Encounter Id Patient Instructions Last Modified By Organization Details Last Modified Time 01/26/2025 [id number] Heart Station Patient Instructions coldendick Not available 01/26/2025 11:11:11 Reason for Referral None Reported. Results Created Date Observation Date Name Description Value Unit Range Abnormal Flag Note LastModifiedBy Organization Detail LastModifiedTime 01/28/20 25 01/26/2025 elect julio carlson am No observ ation record ed. BARCODE Not Available 2024 08:22:09 02/27/2002/19/2025 US, doppl er echoc ardio gram, w/ color flow No observ ation record ed. [email or web address] [facility]iology [address], [place], [address], 03/01/2025 08:52:12 Result Notes None recorded. 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 Active 2015 From [employer];Pro vider: Sonam Saucedo; Status: Active Not Available [facility] 6 09:51:48 Pain of hip region 97647057 Completed 201510/06/2021 From [employer];Pro vider: Sonam Saucedo; Status: Active LEN LEE MD [address] [place] [address], [address] , [facility] 2 09:55:04 Senile hyperker atosis 043685888 Completed 201401/03/2017 From [employer];Pro vider: Rashmi Flor ;Status: Active NILDA MUNOZ MD [address] [place] [address], [address] , [facility] 7 12:31:06 Scarring alopecia 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 Active 2014 From [employer];Pro vider: Rashmi Flor ;Status: Active Not Available [facility] 6 09:51:48 Hemangio ma 114603014 Active 2014 From [employer] Load;Pro vider: Rashmi Flor ;Status: Active Not Available [facility] 6 09:51:48 Familial combined hyperlip idemia 254220570 Completed 201401/03/2017 From Autom[employer] Load;Pro vider: Nilda Munoz;Sta tus: Active NILDA MUNOZ MD [address] [place] [address], [address] [place] [address] , [facility] 7 12:31:03 Lack of energy 265326888 Completed 201410/06/2021 From Autom[employer] d Load;Pro vider: Nilda Munoz;Sta tus: Active LEN LEE MD [address] [place] [address], [address] [place] [address] , [facility] 2 09:55:07 Hyperlip idemia 90794855 Active 2016 NILDA MUNOZ MD [address] [place] [address], [address] [place] [address] , [facility] 7 12:31:01 Fatigue 42143509 Active 2016 NILDA MUNOZ MD [address] [place] [address], [address] [place] [address] , [facility] 7 12:31:11 Epidermo id cyst of skin 144172133 Active 2015 From Autom[employer] Load;Pro vider: Rashmi Flor ;Status: Active Not Available [facility] 7 06:14:48 Lentigo Active 2015 From Autom[employer] d Load;Pro vider: Rashmi Flor ;Status: Active Not Available [facility] 7 07:37:58 History of polyp of colon 205815333 Active 2021 LEN LEE MD [address] [place] [address], [address] , [facility] 2 09:57:01 Notes:: Depression Screening* Date:07/02/2016 Problem Notes None recorded. Procedures Surgical History Date Name Laterality Status Provider Name and Address Organization Details Recorded Time 01/27/20 25 EKG completed RONIT TIDWELL PA-C [address] [place], [address], [facility] 01/26/2025 16:32:51 11/25/19 24 Destruction BN Lesions completed RASHMI FLOR DO [address] [place], [address], [facility] 11/25/2023 12:31:16 10/06/[address] Lung Screening [place] [address] [place] [address], [address], [facility] 10/06/2021 10:46:20 10/05/19 21 Destruction Premalignant Lesion(s) completed [facility] 10/05/2020 10:04:52 10/05/19 21 Destruction BN Lesions completed [facility] 10/05/2020 10:03:54 04/18/20 20 laser assisted in situ keratomileusis of bilateral eyes completed Lexie Knott [facility] 01/26/2025 10:25:44 06/16/20 19 Biopsy Skin Lesion; Tangential completed Luke [facility] 06/16/2019 12:00:08 07/05/20 17 Most Recent Mammogram completed [facility] 12/31/2017 10:45:44 08/14/20 16 Most Recent Bone Density completed [facility] 12/31/2017 10:45:35 07/18/20 16 Date of Last Colonoscopy completed [facility] 12/31/2017 10:45:07 Eye Surgery completed [facility] 01/03/2017 12:03:38 Tonsillectomy completed [facility] 12/25/2018 10:36:31 dental surgical procedure completed Anila Claire [facility] 05/18/2022 10:22:10 Imaging Results None recorded. Procedure Notes None recorded. Medical Equipment None Reported. Allergies Allergen ID Allergen Name Allergen Category Reaction Reaction Severity Criticality Documentation Date Start Date Code Code System Note Provider Name and Address Organization Details Recorded Time 425582 Product containin g penicilli n (product) medicatio n anaphylax is Not available Not available 08/10/20162010 23016 8001 SNOMED React ion: ANAPH YLAXI S; Comme nt: Creat ed By: Huy norton Date: 2010 1:52: 19 PM; Not Available [facility] 6 08:19:47 895497 ergocalci ferol medicatio n confusion moderate Not available 01/26/20252024 4018 RxNorm Lexie Knott [facility] 10:21:15 Medications Name Sig Start Date Stop [...] blood by Pulse oximetry Heart rate Systolic And Diastolic Provider Name and Address Organization Details Last Updated DateTime 5 162.56 cm 18.6 kg/m2 76747.1 3 g 96 % 96 % 90 /min 106/58 mm[Hg] Lexie Knott [facility] 5 10:28:50 Social History Question Answer Notes LastModified by Organizat ion Details LastModified Time Tobacco Smoking Status Current Some Day Smoker Estrellita Jonas [facility] 01/03/2017 11:56:33 Do You Have An Advance [...] What Is Your Current Pack Years? 30ormorepac romeokristopher Information not available 01/26/2025 Performs Monthly Self-breast [...] Much Tobacco Do You Smoke? 1 PPW [email or web address] Information not available 05/18/2022 General Stress Level [...] N Atrial Fibrillation N Kidney Stones N Parkinson's Disease N Hyperthyroidism N Alzheimer's N Hypothyroidism N Depression N COPD N Anemia N Difficulty Swallowing N MRSA exposure N Anxiety Disorder N Meniere's disease N [...] high-dose, trivalent, PF 8 completed Not Available [facility] 10/03/2019 02:49:24 pneumococcal polysaccharide PPV23 3 completed NILDA MUNOZ MD [address] [place] [address] [place], [address], [facility] 07/05/2017 07:50:20 Pneumococcal conjugate PCV 13 6 completed NILDA MUNOZ MD [address] [place] [address], [address], [facility] 07/05/2017 07:50:34 zoster live 2 completed NILDA MUNOZ MD [address] [place] [address], [address], [facility] 07/05/2017 07:50:56 Tdap 2 completed NILDA MUNOZ MD [address] [place] [address], [address], [facility] 07/05/2017 07:51:17 Hep B, unspecified formulation 2 completed NILDA MUNOZ MD [address] [place] [address], [address], [facility] 07/05/2017 07:51:43 Hep B, unspecified formulation 2 completed NILDA MUNOZ MD [address] [place] [address], [address], [facility] 07/05/2017 07:52:00 Hep B, unspecified formulation 2 completed NILDA MUNOZ MD [address] [place] [address] [place], [address], [facility] 07/05/2017 07:52:16 Influenza, high-dose, trivalent, PF 9 completed Not Available [facility] 10/03/2019 02:51:48 Influenza, high-dose, quadrivalent, PF 0 completed Inocencia Rai [facility] 06/08/2020 10:03:49 Influenza, high-dose, quadrivalent, PF 1 completed Radha Castañedaood [facility] 06/28/2021 09:56:23 Influenza, adjuvanted, quadrivalent, PF 2 completed SONAM SAUCEDO, CERTIFIED LACTATION COUNSELOR [address] [place], [address], [facility] 05/21/2022 17:50:40 Influenza, high-dose, trivalent, PF 7 completed Not Available [facility] 10/03/2019 02:45:19 SARS-COV-2 (COVID-19) vaccine, UNSPECIFIED 1 completed Mitzi Perry [facility] 04/03/2021 10:36:34 SARS-COV-2 (COVID-19) vaccine, UNSPECIFIED 1 completed Mitzi Perry [facility] 04/03/2021 10:36:38 COVID-19, mRNA, LNP-S, PF, 100 mcg/0.5mL dose or 50 mcg/0.25mL dose 1 completed Etienne Del Rosario [facility] 10/06/2021 10:30:22 Past Encounters Encounter ID Performer Location Encounter Start Date Encounter Closed Date Diagnosis/Indication Diagnosis SNOMED-CT Code Diagnosis ICD10 Code Diagnosis Note [id number] RONIT TIDWELL PA-C CARDIOLOG [address] ,[address] [place] [address] 01/26/2025 09:54:59 01/26/2025 11:14:43 Hyperlipidemia 38721019 E78.5 Screening for HLD and DM ordered today. Prediabetes 649042190 R7 3.03 Noted 5.7 previously . Screening for HLD and DM ordered today. Right atri al enlargement 1828698907 9106 I51.7 EKG shows NSR. WEST noted.Pt would like further evaluation of heart structure and function. Echo ordered.Chang salazar appointmen t with Dr. Ross in July. 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 [...] Name 01/26/2025 1 [place] Adriana Forbes [id number] Adriana Chow Forbes 01/26/2025 2 [employer] (MEDICARE SUPPLEMENT) Adriana Forbes [id number] Adriana Forbes Notes Date Note Type Note [...] in D was low. She recently to [facility] for shakiness after starting vitamin D. [...] weakness, or tiredness today. RONIT TIDWELL PA-C [facility] [place], [address], [facility] 01/26/2025 16:39:55 OBGyn Episode No OBEpisode recorded.
--- OUTSIDE RECORDS SUMMARY | 2025-03-26 09:49 | XMS_ITS | Patient Health Record ---
[facility] Address [address] [facility] [address] [place] [id number] Care Team Providers Care J2Ee Software Engineer Name Role Phone Rajeev Davis Unavailable [phone] Allergies Allergen (clinical drug ingredient) Drug/Non Drug Allergy documented on EMR Reaction Allergy Type Onset Date Status Penicillin anaphylaxis Drug Allergy Acti ve Results Component Value Reference Range Notes Mammogram Reviewed date:09/23/2024 04:22:28 PM Interpretation:Negative, annual f/u Performing Lab: Notes/Report: Negative, annual f/u result Negative, annual f/u Bone density Reviewed date:03/03/2025 09:01:07 AM Interpretation:osteopenia Performing Lab: Notes/Report: osteopenia TEN-UTI panel Reviewed date:02/24/2025 10:32:37 AM Interpretation:E. Coli Performing Lab: Notes/Report: E. Coli Urinalysis - Inhouse Reviewed date:02/22/2025 12:51:25 PM Interpretation: Performing Lab: Notes/Report: Color/Clarity yellow/clear Leuk Neg Nitrite Neg Urobili 3.2 Protein Trace pH 5.5 Blood 2+ Sp. Gr. 1.015 Ketone Neg Bili Neg Gluc Neg P-Vitamin D 25-Hydroxy Reviewed date:10/28/2024 12:59:54 PM Interpretation:22.2 Performing Lab: Notes/Report: Test performed by [facility], [facility] , [address], [place] [address] Mike Del Valle MD, Syrup Blender CLIA: [id number] Vitamin D 25-Hydroxy 22.2 30.0-100.0 ng/mL Interpretation of Vitamin D 25 OH: < 20 ng/mL - Deficiency 20 - 29 ng/mL - Insufficiency 30 - 100 ng/mL - Sufficiency > 100 ng/mL - Super-therapeutic- toxicity may occur above this level. Clinical correlation required. P-TSH reflex to FT4 Reviewed date:10/28/2024 12:59:54 PM Interpretation:Normal Performing Lab: Notes/Report: Test performed by [facility] [address] [place] [address] , [address], [place] [address] Mike Del Valle MD, Syrup Blender CLIA: [id number] TSH reflex to FT4 0.79 0.43-5.25 mU/L P-Comprehensive Metabolic Pa zeke (CMP) Reviewed date:10/28/2024 12:59:54 PM Interpretation:CO2 21, Glu 102 Performing Lab: Notes/Report: Test performed by [facility] [address] [place] [address] , [address], [place] [address] Mike Del Valle MD, Syrup Blender CLIA: [id number] Sodium 143 135-145 mmol/L Potassium 4.3 3.5-5.3 [...] 1.0 <0.2-1.2 mg/dL A/G Ratio 1.8 1.1-2.5 P-Vitamin B12 Reviewed date:10/28/2024 12:59:54 PM Interpretation:Normal Performing Lab: Notes/Report: Test performed by [facility] [address] [place] [address] , [address], [place] [address] Mike Del Valle MD, Syrup Blender CLIA: [id number] Vitamin B12 229 503-9798 pg/mL CBC Venipuncture (in house) Reviewed date:10/23/2024 12:38:26 [...] - 38 platlet 260 100 - 400 Reason For Referral Diagnosis 1 Memory loss (R41.3) Referral Organization [facility] Referring Provider First Name Rajeev Referring Provider Last Name Adams Referring Provider Speciality Family Pra denisseice Referred Provider Yuliet Pino Referred Provider Specialty Neurology General Notes Mylene Joiner 11:59:56 AM > faxed to [facility] Neurology, Mylene Joiner 10/27/2024 9:12:00 AM > confirmed received with Jaimee at Dr. Pino's office Referral Priority Routine Medications Medication SIG (Take, Route, Frequency, Duration) Notes Start Date End Date Status Maximum D3 325 MCG (81677 UT) 1 cap(s) Orally once daily on M, W & F 10/23/2024 Active Macrobid 100 MG 1 capsule with food Orally every 12 hrs; Duration: 5 days 02/22/2025 Active Immunizations Vaccine Route [...] Problem Status W/U Status Risk Notes Problem Vitamin D deficiency (57822479) Vitamin D deficiency (E55.9) Active confirmed Problem Memory loss (15125770) Memory loss (R41.3) Active confirmed Problem Mammography abnormal (717834868) Abnormal mammogram of left breast (R92.8) Active confirmed Problem Tobacco user (626016700) Cigarette nicotine dependence without complication (F17.210) Active confirmed Problem Osteopenia (091132242) Osteopenia, unspecified location (M85.80) Active confirmed Vital Signs Heart Rate 88 /min 02/22/2025 Blood pressure diastolic 68 mm Hg 02/22/2025 Height 64 in 02/22/2025 Blood pressure systolic 100 mm Hg 02/22/2025 Weight 111 lbs 02/22/2025 BMI 19.05 kg/m2 02/22/2025 Encounters Encounter Location Date Provider Diagnosis [facility] [address] [place], [place] [id number] 10/21/2024 Rajeev Adams Memory loss R41.3 ; Vitamin D deficiency E55.9 ; Colon cancer screening Z12.11 and Encounter for immunization Z23 [facility] [address] [place], [place] [id number] 02/22/2025 Rajeev Adams Right flank pain R10 .9 and Microscopic hematuria R31.29 [facility] [address] [place], [place] [id number] 03/03/2025 Rajeev Adams [facility] [address] [place], [place] [id number] 10/23/2024 Rajeev Adams [facility] [address] [place], [place] [id number] 11/03/2024 Rajeevsamira ArciniegaAdams [facility] [address] [place] [id number] 02/23/2025 Rajeevsamira ArciniegaAdams Screening for osteoporosis Z13.820 Assessments Encounter Date [...] Test Test Name Order Date colonoscopy 10/21/2024 H-Lipid Panel 04/24/2023 Insurance Providers Payer Name Payer Address Payer Phone Subscriber Number Group Number Insured Name Patient Relationship to Insured Coverage Start Date Coverage End Date MEDICARE PART B [address] [address] [place] [address] [phone] [id number] RICHIE MAI Self - patient is the insured [facility] [employer] [address] [place] [address] [id number] RICHIE MAI Self - patient is the insured Medical (General) History Medical History History ICD Code 30 pack year smoking history as of 2021 Vitamin D deficiency Surgical History Surgery Date(Month/Year) Colonoscopy Bilateral Cataract Removal
[2025-03-26] MEDS: ALBUTEROL 0.083% 2.5 MG/3 ML NEB IH (10:15)
--- NOTE | 2025-03-26 10:40 | PC.NURSE ---
PFT completed without incident. Albuterol 0.083% given via HHN, per written protocol, Pt tolerated tx well.
== END 2025-03-26 23:59 | disposition home or self-care (01) ==
LOC: RT 09:47
PROVIDERS: PCP Family Medicine; Visit Provider Specialist
DX: J44.9 Chronic obstructive pulmonary disease, unspecified (principal); R94.2 Abnormal results of pulmonary function studies; R41.3 Other amnesia; F17.200 Nicotine dependence, unspecified, uncomplicated; Z68.1 Body mass index [BMI] 19.9 or less, adult
CPT/HCPCS: 94010; 94727; 94729

== ENCOUNTER 2025-03-30 11:57 | Outpatient (CLI) | payer MEDICARE, SELFPAY ==
[2025-03-30 12:31] LABS: Hematocrit 44.0 % (37.0-47.0); Hemoglobin 13.8 g/dL (12.2-16.2); Immature Granulocytes % 0.2 %; Mean Corpuscular HGB Conc 31.4 g/dL (31.8-35.4); Mean Corpuscular Hemoglobin 29.4 pg (27.0-31.2); Mean Corpuscular Volume 93.6 fl (81-99); Nucleated Red Blood Cells % 0 %; Platelet Count 263 K/mm3 (142-424); Red Blood Count 4.70 M/mm3 (4.20-5.40); Red Cell Distribution Width-SD 45.6 fL; White Blood Count 8.9 K/mm3 (4.8-10.8)
[2025-03-30 13:10] LABS: Iron 106 ug/dL (37-170)
[2025-03-30 13:20] LABS: Total Iron Binding Capacity 324 ug/dL (265-497)
[2025-03-30 13:47] LABS: Ferritin 226 ng/ml (11.1-264)
== END 2025-03-30 23:59 | disposition home or self-care (01) ==
LOC: LAB 11:58
PROVIDERS: PCP Family Medicine; Visit Provider Internal Medicine Gastroenterology
DX: D64.9 Anemia, unspecified (principal); B19.20 Unspecified viral hepatitis C without hepatic coma; K74.69 Other cirrhosis of liver
CPT/HCPCS: 36415; 82728; 83540; 83550; 85025

== ENCOUNTER 2025-05-14 11:09 | Outpatient (CLI) | payer MEDICARE, SELFPAY ==
--- OUTSIDE RECORDS SUMMARY | 2024-09-25 06:30 | XMS_ITS ---
Author Organization [facility] Address [address] [place] [id number] Care Team Providers Care Rooming House Operator Name Role Phone Rajeev Davis Unavailable [phone] REASON FOR VISIT check up and discuss getting appt for colonoscopy Encounters Encounter Location Date Provider Diagnosis [facility] [address] [place] [id number] 09/25/2024 Rajeev Davis Plan Of Treatment No Information Progress Notes * RAMONITA MAIOB:1950 ([age] yo F)Acc No.[id number]:09/25/2024 Progress Notes Patient: RICHIE JOSE Provider: Cali Davis M.D. :1950 A ge:74 Y S ex:Female Date:09/25/2024 Address:[address] [place], [place] [id number] Subjective: * Chief Complaints: * 1 . Check up and discuss getting appt for colonoscopy. * Medical History: Objective: * Vitals: Assessment: Plan: * Treatment: * Images: Billing Information: * Visit Code: * Procedure Codes: * Electronic signature of Susie Davis MD on 05/14/2025 at 11:22 AM EDT Sign off status: Pending * Provider: Cali Davis M.D. Date: 09/25/2024 Generated for Jesusi jeffrey/Jenae/eTransmitting on: 0 05/14/2025 11:22 AM EDT
--- OUTSIDE RECORDS SUMMARY | 2024-10-21 06:45 | XMS_ITS ---
Author Organization [facility] Address [address] [facility] [address] [place] [id number] Care Team Providers Care Office Supervisor Name Role Phone Rajeev Davis Unavailable [phone] Allergies Allergen (clinical drug ingredient) Drug/Non Drug [...] Interpretation:Normal Performing Lab: Notes/Report: Test performed by [employer] [facility] [address] [place] , [address], [place] [address] Mike Del Valle MD, Tax Examining Technician CLIA: [id number] Vitamin B12 419 247-7096 pg/mL P-Comprehensive Metabolic Pa zeke (CMP) Reviewed date:10/28/2024 12:59:54 PM Interpretation:CO2 21, Glu 102 Performing Lab: Notes/Report: Test performed by [employer] [address] [place], [place] [address] [place] , [address], [place] [address] Mike Del Valle MD, Tax Examining Technician CLIA: [id number] Sodium 143 135-145 mmol/L Potassium 4.3 3.5-5.3 [...] Interpretation:Normal Performing Lab: Notes/Report: Test performed by [employer] [address] [place] [address] , [address], [place] [address] Mike Del Valle MD, Tax Examining Technician CLIA: [id number] TSH reflex to FT4 0.79 0.43-5.25 mU/L P-Vitamin D 25-Hydroxy Reviewed date:10/28/2024 12:59:54 PM Interpretation:22.2 Performing Lab: Notes/Report: Test performed by [employer] [address] [place] [address] , [address], [place] [address] Mike Del Valle MD, Tax Examining Technician CLIA: [id number] Vitamin D 25-Hydroxy 22.2 30.0-100.0 ng/mL Interpretation [...] Mylene Joiner 11:59:56 AM > faxed to [facility] Neurology, MariselMylene 10/27/2024 9:12:00 AM > confirmed received with [...] W/U Status Risk Notes Problem Memory loss (R41.3) Active confirmed Problem Vitamin D deficiency (91426618) Vitamin D deficiency (E55.9) Active confirmed Vital Signs Blood pressure systolic 102 mm Hg 10/21/19 25 Blood pressure diastolic 68 mm Hg 025 Heart Rate 86 /min 10/21/2024 Height 64 in 10/21/2024 Weight 108.8 lbs 10/21/2024 BMI 18.67 kg/m2 10/21/2024 Encounters Encounter Location Date Provider Diagnosis [facility] [address] [place], [place] [id number] 10/21/2024 Rajeev Davis Memory loss R41.3 ; [...] * RAMONITA MAIOB:1950 ([age] yo F)Acc No.[id number]:10/21/2024 Progress Notes Patient: RICHIE JOSE Provider: Cali Davis M.D. :1950 A ge:74 Y S ex:Female Date:10/21/2024 Address:[address] [place] [address] Hanna PEÑALOZA [id number] Subjective: * Chief Complaints: * 1 . [...] Treatment: Value Reference Range V itamin B12 650 129-1310 - pg/mL * Rosario Lockhart 10/23/2024 12:37 [...] Hurtado 03/02/2025 12:12:19 PM EDT >faxed to [facility] Shasha Germain 03/05/2025 12:37:55 PM EDT > scheduled 03/30 * Immunizations: Fluzone High Dose (65yr and older) : 0.5 mL (Route: Intramuscular) given by Roxana Martini on Left Deltoid (Encounter for immunization) * Procedure Codes: G 2211 Complex e/[place], [address] CBC WITH AUTO DIFF, 3074F SYST BP LT 130 MM HG, 3078F DIAST BP < 80 MM HG * Follow Up: v ia phone to report test results * Images: Billing Information: * Visit Code: 09309 Office Visit, Est Pt., Level 4. * Procedure Codes: G2211 Complex e/[place]. [address] CBC WITH AUTO DIFF. 3074F SYST BP LT 130 MM HG. 3078F DIAST BP < 80 MM HG. * Electronic signature of Susie Davis MD on 05/14/2025 at 11:22 AM EDT Sign off status: Pending * Provider: Cali Davis M.D. Date: 0 10/21/2024 Generated for Jesusi jeffrey/Yandyg/eTransmitting on: 0 05/14/2025 11:22 AM EDT History and Physical Notes * [...]
--- OUTSIDE RECORDS SUMMARY | 2025-02-22 05:30 | XMS_ITS ---
[facility] Address [address] [facility] [address] [place] [phone] Care Team Providers Care Marine Machinist Name Role Phone Rajeev Davis Unavailable [phone] Allergies Allergen (clinical drug ingredient) Drug/Non Drug [...] E. Coli REASON FOR VISIT F/U ER [facility] Medications Medication SIG (Take, Route, Frequency, Duration) Notes Start Date End Date Status Maximum D3 325 MCG (31271 UT) 1 cap(s) Orally once daily on M, W & F 10/23/2024 Active Macrobid 100 MG 1 capsule with food Orally every 12 hrs; Duration: 5 days 02/22/2025 Active Social History Tobacco Use: Social History Observation Description Date Details (start date - stop date) Current Smoker NA - NA CURRENT TOBACCO USE: Question Answer Notes Are you a: current smoker 1/2 ppd Vital Signs Weight 111 lbs 02/22/2025 Blood pressure systolic 100 mm Hg 02/23/20 25 Blood pressure diastolic 68 mm Hg 025 Heart Rate 88 /min 02/22/2025 Height 64 in 02/22/2025 BMI 19.05 kg/m2 02/22/2025 Encounters Encounter Location Date Provider Diagnosis [facility] [address] [place] [id number] 02/22/2025 Rajeev Davis Right flank pain R10 .9 and Microscopic hematuria R31.29 Assessments Encounter Date Diagnosis (ICD Code) Assessment Notes Treatment Notes Treatment Clinical Notes Section Notes 02/22/2025 Right flank pain (ICD-10 - R10.9) 02/22/2025 Microscopic hematuria (ICD-10 - R31.29) Plan Of Treatment Medication Medication Name Sig Start Date Stop Date Notes Macrobid 100 MG 1 capsule with food Orally every 12 hrs; Duration: 5 days 02/22/2025 Next Appt Details Follow Up: via phone to repo rt progress, Reason: Progress Notes * RAMONITA MAIOB:1950 ([age] yo F)Acc No.[id number]:02/22/2025 Progress Notes Patient: RICHIE JOSE Provider: Cali Dvais M.D. :1950 A ge:74 Y S ex:Female Date:02/22/2025 Address:[address] [place] [address] [id number] Subjective: * Chief Complaints: * 1 . F/U ER [facility]. * HPI: H PI: 74 year old female presents with c/o Here for follow up on:?02/18/2025 [facility] ER visit. Pt went to er for [...] Medications: T aking Maximum D3 325 MCG (24592 UT) Capsule 1 cap(s) Orally once daily on M, W & , Medication List reviewed and reconciled with the patient * Allergies: P enicillin: anaphylaxis - Allergy. Objective: * Vitals: W t: 111, Temp: 97.8, BP: 100/68, HR: 88, Nurse: miroslava, Ht: 64, BMI:19.05. * Examination: G eneral Examination: General Appearance: N AD. H eart: R SR. L ungs:?clear to auscultation. A bdomen: b owel sounds present, soft and nontender. B ack:?no CVA tenderness. Assessment: * Assessment: 1. R [...] G 2211 Complex e/[place], [address] Urinalysis, no micro * Follow Up: v ia phone to report progress * Images: Billing Information: * Visit Code: 76214 Office Visit, Est Pt., Level 3. * Procedure Codes: G2211 Complex e/[place]. [address] Urinalysis, no micro. * Electronic signature of Susie Davis MD on 05/14/2025 at 11:22 AM EDT Sign off status: Pending * Provider: Cali Davis M.D. Date: 0 02/22/2025 Generated for Jesusi jeffrey/Jenae/eTransmitting on: 0 05/14/2025 11:22 AM EDT History and Physical Notes * HPI (History of Present Illness) Category Sub-Category Detail Notes Category Not es HPI Here for follow up on: 5 [facility] ER visit. Pt went to er for [...]
--- OUTSIDE RECORDS SUMMARY | 2025-05-14 11:22 | XMS_ITS | Patient Health Record ---
Author [facility] Address [address] [place] [id number] Care Team Providers Care Composer Teaching Artist Name Role Phone Rajeev Davis Unavailable [phone] Allergies Allergen (clinical drug ingredient) Drug/Non Drug Allergy documented on EMR Reaction Allergy Type Onset Date Status Penicillin anaphylaxis Drug Allergy Acti ve Results Component Value Reference Range Notes TEN-UTI panel Reviewed date:02/24/2025 10:32:37 AM Interpretation:E. Coli Performing Lab: Notes/Report: E. Coli Urinalysis - Inhouse Reviewed date:02/22/2025 12:51:25 PM Interpretation: Performing Lab: Notes/Report: Color/Clarity yellow/clear Leuk Neg Nitrite Neg Urobili 3.2 Protein Trace pH 5.5 Blood 2+ Sp. Gr. 1.015 Ketone Neg Bili Neg Gluc Neg Bone density Reviewed date:03/03/2025 09:01:07 AM Interpretation:osteopenia Performing Lab: Notes/Report: osteopenia P-Vitamin D 25-Hydroxy Reviewed date:10/28/2024 12:59:54 PM Interpretation:22.2 Performing Lab: Notes/Report: Test performed by [employer] [address] [place] [address] , [address], [place] [address] Mike Del Valle MD, Form Grader Operator CLIA: [id number] Vitamin D 25-Hydroxy 22.2 30.0-100.0 ng/mL Interpretation of Vitamin D 25 OH: < 20 ng/mL - Deficiency 20 - 29 ng/mL - Insufficiency 30 - 100 ng/mL - Sufficiency > 100 ng/mL - Super-therapeutic- toxicity may occur above this level. Clinical correlation required. P-TSH reflex to FT4 Reviewed date:10/28/2024 12:59:54 PM Interpretation:Normal Performing Lab: Notes/Report: Test performed by [employer] [address] [place] [address] , [address], [place] [address] Mike Del Valle MD, Form Grader Operator CLIA: [id number] TSH reflex to FT4 0.79 0.43-5.25 mU/L P-Comprehensive Metabolic Pa zeke (CMP) Reviewed date:10/28/2024 12:59:54 PM Interpretation:CO2 21, Glu 102 Performing Lab: Notes/Report: Test performed by [employer] [address] [place] [address] , [address], [place] [address] Mike Del Valle MD, Form Grader Operator CLIA: [id number] Sodium 143 135-145 mmol/L Potassium 4.3 3.5-5.3 [...] Interpretation:Normal Performing Lab: Notes/Report: Test performed by [employer] [address] [place] [address] , [address], [place] [address] Mike Del Valle MD, Form Grader Operator CLIA: [id number] Vitamin B12 939 306-3634 pg/mL CBC Venipuncture (in house) Reviewed date:10/23/2024 [...] - 38 platlet 260 100 - 400 Mammogram Reviewed date:09/23/2024 04:22:28 PM Interpretation:Negative, annual f/u Performing Lab: Notes/Report: Negative, annual f/u result Negative, annual f/u Reason For Referral Diagnosis 1 Memory loss (R41.3) Referral Organization [facility] Referring Provider First Name Rajeev Referring Provider Last Name Susan Referring Provider Speciality Family Pra denisseice Referred Provider Yuliet Pino Referred Provider Specialty Neurology General Notes Mylene Joiner 11:59:56 AM > faxed to [facility] Neurology, Mylene Joiner 10/27/2024 9:12:00 AM > confirmed received with Jaimee at Dr. Pino's office Referral Priority Routine Medications Medication SIG (Take, Route, Frequency, Duration) Notes Start Date End Date Status Maximum D3 325 MCG (58142 UT) 1 cap(s) Orally once daily on [...] Status Risk Notes Problem Vitamin D deficiency (76135510) Vitamin D deficiency (E55.9) Active confirmed Problem Memory loss (89379118) Memory loss (R41.3) Active confirmed Problem Mammography abnormal (774391831) Abnormal mammogram of left breast (R92.8) Active confirmed Problem Tobacco user (646999459) Cigarette nicotine dependence without complication (F17.210) Active confirmed Problem Osteopenia (360828129) Osteopenia, unspecified location (M85.80) Active confirmed Vital Signs Heart Rate 88 /min 02/22/2025 Blood pressure diastolic 68 mm Hg 02/22/2025 Height 64 in 02/22/2025 Blood pressure systolic 100 mm Hg 02/22/2025 Weight 111 lbs 02/22/2025 BMI 19.05 kg/m2 02/22/2025 Encounters Encounter Location Date Provider Diagnosis [facility] [address] [place], [place] [id number] 10/21/2024 Rajeev Mellott Memory loss R41.3 ; Vitamin D deficiency E55.9 ; Colon cancer screening Z12.11 and Encounter for immunization Z23 [facility] [address] [place], [place] [id number] 02/22/2025 Rajeev Mellott Right flank pain R10 .9 and Microscopic hematuria R31.29 [facility] [address] [place], [place] [id number] 10/23/2024 Rajeev Mellott [facility] [address] [place], [place] [id number] 11/03/2024 Rajeev Mellott [facility] [address] [place], [place] [id number] 02/23/2025 Rajeev Davis Screening for osteoporosis Z13.820 [facility] [address] [place] [id number] 03/03/2025 Rajeev Davis Assessments Encounter Date Diagnosis (ICD Code) Assessment [...] Date MEDICARE PART B [address] [address] [place] [address] [id number] RICHIE MAI Self - patient is the insured [facility] C[facility] OPTIONS [address] [place] [id number] RICHIE MAI Self - patient is the insured Medical (General) History Medical History History ICD Code 30 pack year smoking history as of 2021 Vitamin D deficiency Surgical History Surgery Date(Month/Year) Colonoscopy Bilateral Cataract Removal
[2025-05-14 12:02] LABS: Occult Blood,Stool Positive (Negative)
== END 2025-05-14 23:59 | disposition home or self-care (01) ==
LOC: LAB 11:11
PROVIDERS: PCP Family Medicine; Visit Provider Internal Medicine Gastroenterology
DX: D64.9 Anemia, unspecified (principal)
CPT/HCPCS: 82272; G0328